=== PATIENT | male | born 1965 | race Caucasian/White ===

== ENCOUNTER 2016-09-16 00:37 | Inpatient (IN) | payer OTHER ==
[~2016-09-16] VITALS: Ht 167.6 cm; Wt 60.5 kg
[~2016-09-16 00:37] MED LIST: AMLO-218 PO; AMOX250C PO; CLAR250T PO; OMEP20CA16 PO; ZOF8 PO
[2016-09-16] MEDS ORDERED: ONDANSETRON 4 MG INJ IV STA ×2 (01:23→04:49)
[2016-09-16] MEDS ORDERED: morphine 2 MG INJ IV STA (01:23)
[2016-09-16] MEDS ORDERED: NITROGLYCERIN 2% 1 GM OINT PKT TD STA (01:23)
[2016-09-16 01:43] LABS: ADD SCAN DIFF NO
[2016-09-16 01:46] LABS: BASOPHILS % 0.2 % (0.0-2.0); EOSINOPHILS # 0.3 10^3/ul (0.0-0.5); EOSINOPHILS % 1.6 % (0.0-7.0); HEMATOCRIT 22.1 % (42.0-52.0); HEMOGLOBIN 7.1 g/dl (14.0-18.0); LYMPHOCYTES % 12.3 % (15.0-51.0); MEAN CORPUSCULAR HEMOGLOBIN 29.7 pg (29.0-33.0); MEAN CORPUSCULAR HGB CONC 32.1 g/dl (32.0-37.0); MEAN CORPUSCULAR VOLUME 92.5 fl (82.0-101.0); MEAN PLATELET VOLUME 10.2 fl (7.4-10.4); MONOCYTE # 0.8 10^3/ul (0.3-0.9); MONOCYTES % 4.7 % (0.0-11.0); NEUTROPHIL # 12.9 10^3/ul (1.6-7.5); NEUTROPHILS % 80.5 % (39.0-77.0); PLATELET COUNT 340 10^3/UL (140-415); RED BLOOD COUNT 2.39 10^6/ul (4.70-6.10); RED CELL DISTRIBUTION WIDTH 14.9 % (11.5-14.5)
[2016-09-16 01:55] LABS: ALBUMIN 3.6 g/dl (3.3-4.9); POTASSIUM 4.5 mmol/L (3.5-5.1)
[2016-09-16 01:57] LABS: CREATININE 13.73 mg/dl (0.61-1.24)
[2016-09-16 01:58] LABS: TOTAL PROTEIN 7.2 g/dl (6.1-8.1)
[2016-09-16 01:59] LABS: CALCIUM 6.1 mg/dl (8.4-10.2)
[2016-09-16 02:10] LABS: TROPONIN-I 0.068 ng/ml (0.00-0.12)
--- NOTE | 2016-09-16 02:44 | RADRPT ---
PROCEDURE: Portable chest x-ray. CLINICAL INDICATION: Chest pain. TECHNIQUE: Portable AP view of the chest. COMPARISON: 01/28/2015. FINDINGS: There are hazy bilateral perihilar opacities with Shadi B lines, consistent with pulmonary edema. Minimal atelectatic changes are noted at both lung bases. The cardiac silhouette is magnified. No pleural effusion is seen. There is no pneumothorax. IMPRESSION: 1. Pulmonary edema. RPTAT: HTAR .Donaldo Prado MD, Date Time Electronically viewed and signed by .Donaldo Prado MD, on 09/16/2016 02:44 .R/
[2016-09-16 03:13] LABS: INR 1.01; PROTIME 13.3 Sec (12.2-14.2)
[2016-09-16 03:56] LABS: PARTIAL THROMBOPLASTIN TIME 38.3 Sec (25.0-35.0)
[2016-09-16] MEDS ORDERED: hydrALAzine 20 MG INJ IV ONE (05:00)
[2016-09-16] MEDS ORDERED: HYDROCODONE/HOMATROPINE 5ML CUP PO ONE (05:30)
[2016-09-16] MEDS ORDERED: ONDANSETRON 4 MG INJ IV PRN (09:00)
[2016-09-16] MEDS ORDERED: NACL 0.9% 3 ML SYG IV SCH (09:00)
[2016-09-16] MEDS ORDERED: FUROSEMIDE 40 MG INJ IV SCH (09:00)
[2016-09-16] MEDS ORDERED: DOCUSATE SODIUM 100 MG CAP PO PRN (09:00)
[2016-09-16 13:07] VITALS: TEMP 99.2
[2016-09-16 14:54] VITALS: Ht 167.6 cm; Wt 60.5 kg
[2016-09-16 15:05] VITALS: BP 175/75; RESP 22
[2016-09-16 16:00] VITALS: PULSE 98
--- NOTE | 2016-09-16 16:31 | QN ---
Documentation Comment [id number] LUCAS WAHL MD Sep 16, 2016 16:31
[2016-09-16 17:37] LABS: HAAIG REFLEX REFLEX FILED
--- NOTE | 2016-09-16 18:15 | RADRPT ---
PROCEDURE: Renal US. CLINICAL INDICATION: Renal dysfunction. TECHNIQUE: Multiple sonographic images of the kidneys and urinary bladder were obtained. The imag es were reviewed on a PACS workstation. COMPARISON: No prior studies are available for comparison. FINDINGS: The right kidney measures 8.3 x 4.3 x 3.8 cm. The left kidney measures 8.2 x 4.4 x 4.1 cm. There is no solid renal mass. There are small benign bilateral renal cysts measuring 0.7 cm on the right and 0.7 cm on the left. There is no hydronephrosis. There is no renal calculus. Both kidneys are hyperechoic consistent with medical renal disease. The perirenal regions are normal with no fluid collection or mass. The urinary bladder is unremarkable. IMPRESSION: 1. Small benign bilateral renal cysts. 2. Bilateral hyperechoic kidneys consistent with medical renal disease. RPTAT: QQ .Dexter Leiva MD, MD Date Time Electronically viewed and signed by .Dexter Leiva MD, on 09/16/2016 18:15 .R/
[2016-09-16] MEDS: FUROSEMIDE 40 MG INJ IV SCH (18:50)
[2016-09-16 19:10] LABS: HEPATITIS B CORE ANTIBODY NEGATIVE (NEGATIVE)
[2016-09-16 19:20] LABS: ADD UMIC YES; URINE BILIRUBIN (Dip) NEGATIVE (NEGATIVE); URINE BLOOD (Dip) 2+ (NEGATIVE); URINE COLOR LT. YELLOW (YELLOW); URINE GLUCOSE (Dip) NEGATIVE (NEGATIVE); URINE KETONES (Dip) NEGATIVE (NEGATIVE); URINE LEUKOCYTE ESTERASE (Dip) NEGATIVE (NEGATIVE); URINE NITRITE (Dip) NEGATIVE (NEGATIVE); URINE TOTAL PROTEIN (Dip) 2+ (NEGATIVE); URINE UROBILINOGEN (Dip) 0.2 E.U./dL (0.1-1.0)
[2016-09-16 19:31] LABS: BACTERIA,URINE FEW
[2016-09-16 19:48] LABS: PROTEIN/CREAT RATIO 3.89 RATIO
[2016-09-16 20:00] VITALS: BP 175/83; RESP 19
[2016-09-16 20:01] VITALS: PULSE 100
[2016-09-16] MEDS: hydrALAzine 20 MG INJ IV PRN (21:37)
[2016-09-17] VITALS (12 sets, daily range): BP systolic 148–170; BP diastolic 75–90; PULSE 90–110; RESP 18–20
--- NOTE | 2016-09-17 02:07 | RADRPT ---
PROCEDURE: US upper extremity Venous. CLINICAL INDICATION: Placement of central venous line. TECHNIQUE: Multiple sonographic images of the bilateral upper extremity venous system was obtained utilizing grayscale, color-flow, compressive sonography and doppler imaging with augmentation. Ronaldo dy is limited per request of referring physician. COMPARISON: None. FINDINGS: Bilateral upper extremity ultrasound examination is limited to the internal jugular veins and subcla vian veins. There is no evident deep venous thrombosis. IMPRESSION: No sonographic evidence for venous thrombosis. RPTAT: UU Physician Raphael Date Time Electronically viewed and signed by Physician Raphael on 09/17/2016 02:06 RS/
[2016-09-17] MEDS: FUROSEMIDE 40 MG INJ IV SCH ×2 (05:50→17:18)
[2016-09-17] MEDS: PANTOPRAZOLE 40 MG INJ IV SCH (05:51)
[2016-09-17 06:38] LABS: ADD SCAN DIFF NO
[2016-09-17 06:56] LABS: ABNORMAL IP MESSAGE 1; BASOPHILS % 0.1 % (0.0-2.0); EOSINOPHILS # 0.2 10^3/ul (0.0-0.5); EOSINOPHILS % 1.1 % (0.0-7.0); HEMATOCRIT 19.2 % (42.0-52.0); LYMPHOCYTES # 1.5 10^3/ul (0.8-2.9); LYMPHOCYTES % 10.6 % (15.0-51.0); MEAN CORPUSCULAR HEMOGLOBIN 29.6 pg (29.0-33.0); MEAN CORPUSCULAR HGB CONC 31.8 g/dl (32.0-37.0); MEAN CORPUSCULAR VOLUME 93.2 fl (82.0-101.0); MEAN PLATELET VOLUME 10.4 fl (7.4-10.4); MONOCYTE # 0.9 10^3/ul (0.3-0.9); MONOCYTES % 6.5 % (0.0-11.0); NEUTROPHIL # 11.1 10^3/ul (1.6-7.5); NEUTROPHILS % 80.8 % (39.0-77.0); PLATELET COUNT 259 10^3/UL (140-415); RED BLOOD COUNT 2.06 10^6/ul (4.70-6.10); RED CELL DISTRIBUTION WIDTH 14.6 % (11.5-14.5); WHITE BLOOD COUNT 13.7 10^3/ul (4.8-10.8)
[2016-09-17 07:07] LABS: IRON 20 ug/dl (35-150)
[2016-09-17 07:11] LABS: POTASSIUM 4.6 mmol/L (3.5-5.1)
[2016-09-17 07:13] LABS: ALBUMIN/GLOBULIN RATIO 0.93; CREATININE 13.62 mg/dl (0.61-1.24); PHOSPHORUS 7.4 mg/dl (2.5-4.9); TOTAL PROTEIN 6.2 g/dl (6.1-8.1)
[2016-09-17 07:14] LABS: CALCIUM 6.3 mg/dl (8.4-10.2)
[2016-09-17 07:16] LABS: TOTAL IRON BINDING CAPACITY 220 ug/dl (241-421)
--- NOTE | 2016-09-17 07:58 | HP ---
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 The patient presented with short of breath and weakness. Blood pressure 135/75. The patient's WBC 16, hematocrit 22.1, platelet count of 314. Sodium 143, potassium 4.5, CO2 of 15, BUN 18, creatinine 13.73. BNP 54,500. The patient _. PAST MEDICAL HISTORY: Hypertension, CKD V, anemia. The patient's other history includes the patient has a history of hypertensive urgency. The patient had metabolic acidosis. The patient has neuropathy. ALLERGY HISTORY: NEGATIVE. FAMILY HISTORY: Negative. SOCIAL HISTORY: He denies at this point. Social drinking. MEDICATIONS AT HOME: The patient does not know the medicines. REVIEW OF SYSTEMS: HEENT: Unremarkable. RESPIRATORY: Shortness of breath, cough. CARDIOVASCULAR: No chest pain, palpitations. ABDOMEN: Dyspepsia. EXTREMITIES: Swelling positive. CENTRAL NERVOUS SYSTEM: Unremarkable. PHYSICAL EXAMINATION: GENERAL: The patient is a pale-looking male, awake, alert. VITAL SIGNS: Pulse 101, blood pressure 159/80. HEAD: Atraumatic, normocephalic. Pupils equal, reactive to light. NECK: Supple. No JVD. LUNGS: Clear with basilar rales. CARDIOVASCULAR: S1, S2 normal. ABDOMEN: Soft, nontender. Bowel sounds present. No palpable mass. EXTREMITIES: No cyanosis, clubbing, or edema. CENTRAL NERVOUS SYSTEM: The patient is awake, alert, no focal deficit. LABORATORY DATA: As mentioned above. IMPRESSION: 1. Chronic kidney disease V, nearing dialysis. 2. Metabolic acidosis. 3. Leukocytosis. 4. Hypertension. 5. Uremia. 6. Pulmonary edema. PLAN: This patient to have renal diet. The patient will have ultrasound of the kidneys, if not done. Hemodialysis would benefit him. Diuretic. Continue home medication. Orders were done. Hepatitis panel. As well as DICTATION ENDS HERE Dictated By: LUCAS LEON/NTS Conf#: [id number] DID#: [id number] MTDD
[2016-09-17] MEDS: hydrALAzine 20 MG INJ IV PRN (10:06)
--- NOTE | 2016-09-17 13:08 | CONS ---
DATE OF ADMISSION: 09/16/2016 DATE OF CONSULTATION: 09/17/2016 REFERRING PHYSICIAN: Jossue Wahl MD REASON FOR EVALUATION: Tachycardia, shortness of breath. HISTORY OF PRESENT ILLNESS: Mr. Medina is a 50-year-old gentleman with end-stage renal disease on he modialysis, history of hypertension, anemia, history of heart failure in the past who comes [facility] for evaluation of tachycardia and shortness of breath. This was in the setting of sever e anemia. I have been asked to see the patient in consultation for further evaluation. When the salvador montgomery presented to the hospital, his hemoglobin was 7.1. His last hemoglobin here was 13.6 from 2014, today the ____ was 6.1, which could explain his symptoms of shortness of breath as well as mil d tachycardia. Patient's tachycardia appears to be sinus tachycardia in nature. He appears to have some nonspecific ST-T changes suggestive of ischemia during his tachycardia and as such, I think it would be reasonable for the patient to have a stress test for stratification, which we can facilita te for tomorrow. For now, blood transfusion is planned. PAST MEDICAL HISTORY: 1. Hypertension. 2. Dyslipidemia. 3. Possible coronary artery disease. 4. End-stage renal disease on hemodialysis as acute anemia. ALLERGIES: NO KNOWN DRUG ALLERGIES. SOCIAL HISTORY: The patient has a history of tobacco. He does not smoke anymore, does not drink, d oes not use any drugs. FAMILY HISTORY: Negative for sudden cardiac or premature coronary artery disease. MEDICATIONS: The patient is on: 1. Protonix. 2. Coreg 3.125 mg. 3. Lasix intravenously b.i.d. 4. Hydralazine. 5. Ondansetron. 6. Docusate. REVIEW OF SYSTEMS: CONSTITUTIONAL: No fevers, no chills, some shortness of breath is noted. HEENT: No changes in vision or hearing. CARDIAC: No chest pain reported. RESPIRATORY: No shortness of breath. GASTROINTESTINAL: No nausea, vomiting, diarrhea, constipation. GENITOURINARY: The patient is on hemodialysis. NEUROLOGIC: ____. HEMATOLOGIC: Anemia. PSYCHIATRIC: Possible history of psychiatric illness. PHYSICAL EXAMINATION: VITAL SIGNS: Temperature is 98.2, heart rate is 78, blood pressure ____. GENERAL: He is a thin gentleman in no acute distress, alert and oriented x3, aware of his condition . HEAD: Normocephalic, atraumatic. Eyes anicteric. NECK: Supple. JVD 6-7 cm. No lymphadenopathy. HEART: Regular with soft I/ ____ chest, ____respiration. PMI is ____ LUNGS: Coarse at bases. ABDOMEN: Distended, bowel sounds are present. There is no hepatosplenomegaly. GENITOURINARY: Grossly intact. EXTREMITIES: Show no clubbing, cyanosis, or edema. LABORATORY DATA: White blood cell count 7.7, hemoglobin 6.1, platelets 259. INR is 1.0. Sodium 13 6, potassium 4.8. His BUN is ____, creatinine of 13.6, troponin is negative at 0.68. ASSESSMENT AND PLAN: Tachycardia. Patient ____ has a sinus tachycardia ____ has some ST-T changes, possibly suggestive o f ischemia. Once the blood transfusion were placed, I would recommend this patient to risk stratify with a stress test, will facilitate one for tomorrow. Shortness of breath also in the setting of a nemia, better now. A 2D echo is pending. 1. End-stage renal disease. The patient is on hemodialysis. Continued to dialyze with Dr. Wahl a s indicated. 2. Anemia, etiology is still unclear. Hemoglobin is very low. Blood transfusion is warranted. 3. ____. The patient has history of heart failure. 2D echo pending. We will follow up with a 3-D echo if results are available. I would like to thank Dr. Wahl for referring this patient for my evaluation. Dictated By: CECELIA MONTESINOS MD ML/NTS Conf#: [id number] DID#: [id number] CC: JOSSUE WAHL MD;*EndCC*
--- NOTE | 2016-09-17 22:43 | PN ---
Date/Time of Note Date/Time of Note DATE: 09/17/16 TIME: 22:43 Assessment/Plan VTE Prophylaxis VTE Prophylaxis Intervention: other Lines/Catheters [facility] Saline Lock Urinary Cath still in place: No Assessment/Plan Chief Complaint/Hosp Course IMPRESSION: 1. Chronic kidney disease V, nearing dialysis. 2. Metabolic acidosis. 3. Leukocytosis. 4. Hypertension. 5. Uremia. 6. Pulmonary edema. plan prbc hd Problems: Subjective 24 Hr Interval Summary Subjective hx not possible: other (refusing hd) Exam/Review of Systems Vital Signs Vitals Vital Signs Date Time Temp Pulse Resp B/P Pulse Ox O2 Delivery O2 Flow Rate FiO2 09/17/16 20:11 98.3 94 20 154/78 96 09/16/16 20:00 Nasal Cannula 2.0 Intake and Output 09/16/16 09/16/16 09/17/16 15:00 23:00 07:00 Intake Total 400 ml 2400 ml Output Total 600 ml Balance -200 ml 2400 ml Exam Neck: supple Respiratory: clear to auscultation Cardiovascular: regular rate and rhythm Gastrointestinal: soft Musculoskeletal: nl extremities to inspection Extremities: normal pulses Results Result Diagram: 09/17/16 0605 09/17/16 0605 Results 24 hrs Laboratory Tests Test 09/17/16 06:05 Alanine Aminotransferase (ALT/SGPT) 27 Albumin 3.0 L Albumin/Globulin Ratio 0.93 Alkaline Phosphatase 90 Anion Gap 21 H Aspartate Amino Transf (AST/SGOT) 33 Basophils # 0.0 Basophils % 0.1 Blood Urea Nitrogen 101 H Calcium Level 6.3 L Carbon Dioxide Level 16 L Chloride Level 104 Creatinine 13.62 H Direct Bilirubin 0.00 Eosinophils # 0.2 Eosinophils % 1.1 Globulin 3.20 Glucose Level 93 Hematocrit 19.2 L Hemoglobin 6.1 *L Indirect Bilirubin 0.0 Iron Level 20 L Lymphocytes # 1.5 Lymphocytes % 10.6 L Mean Corpuscular Hemoglobin 29.6 Mean Corpuscular Hemoglobin Concent 31.8 L Mean Corpuscular Volume 93.2 Mean Platelet Volume 10.4 Monocytes # 0.9 Monocytes % 6.5 Neutrophils # 11.1 H Neutrophils % 80.8 H Nucleated Red Blood Cells # 0.0 Nucleated Red Blood Cells % 0.0 Parathyroid Hormone (Intact) Percent Iron Saturation 9 L Phosphorus Level 7.4 H Platelet Count 259 # Potassium Level 4.6 Red Blood Count 2.06 L Red Cell Distribution Width 14.6 H Sodium Level 136 Total Bilirubin 0.0 L Total Iron Binding Capacity 220 L Total Protein 6.2 # White Blood Count 13.7 H Medications Medications Current Medications Ondansetron HCl (Zofran Inj) 4 mg Q6H PRN IV NAUSEA AND/OR VOMITING; Start at 09:00 Docusate Sodium (Colace) 100 mg Q12H PRN PO CONSTIPATION; Start 09/16/16 at 09: 00 Pantoprazole (Protonix Iv) 40 mg DAILY@06 IV Last administered on 09/17/16 05: 51; Admin Dose 40 MG; Start 09/17/16 at 06:00 Carvedilol (Coreg) 3.125 mg BID PO Last administered on 09/17/16 20:22; Admin Dose 3.125 MG; Start 09/16/16 at 21:00 Hydralazine HCl (Apresoline) 10 mg Q6H PRN IV sbp >170 Last administered on 10:06; Admin Dose 10 MG; Start 09/16/16 at 17:00 LUCAS WAHL MD Sep 17, 2016 22:43
[2016-09-18] VITALS (15 sets, daily range): BP systolic 129–175; BP diastolic 71–96; PULSE 80–102; RESP 16–20
[2016-09-18] MEDS ORDERED: GUAIFENESIN/CODEINE 5ML CUP PO PRN (05:00)
[2016-09-18] MEDS: FUROSEMIDE 40 MG INJ IV SCH ×2 (05:11→17:15)
[2016-09-18] MEDS: PANTOPRAZOLE 40 MG INJ IV SCH (05:11)
[2016-09-18 07:26] LABS: ADD SCAN DIFF NO
[2016-09-18 07:31] LABS: BASOPHILS % 0.2 % (0.0-2.0); EOSINOPHILS # 0.2 10^3/ul (0.0-0.5); EOSINOPHILS % 1.9 % (0.0-7.0); HEMATOCRIT 23.2 % (42.0-52.0); HEMOGLOBIN 7.7 g/dl (14.0-18.0); LYMPHOCYTES # 1.3 10^3/ul (0.8-2.9); LYMPHOCYTES % 10.2 % (15.0-51.0); MEAN CORPUSCULAR HGB CONC 33.2 g/dl (32.0-37.0); MEAN CORPUSCULAR VOLUME 90.3 fl (82.0-101.0); MEAN PLATELET VOLUME 10.1 fl (7.4-10.4); MONOCYTE # 1.1 10^3/ul (0.3-0.9); MONOCYTES % 8.9 % (0.0-11.0); NEUTROPHIL # 9.7 10^3/ul (1.6-7.5); NEUTROPHILS % 78.2 % (39.0-77.0); PLATELET COUNT 294 10^3/UL (140-415); RED BLOOD COUNT 2.57 10^6/ul (4.70-6.10); RED CELL DISTRIBUTION WIDTH 14.6 % (11.5-14.5); WHITE BLOOD COUNT 12.3 10^3/ul (4.8-10.8)
[2016-09-18 07:58] LABS: POTASSIUM 4.4 mmol/L (3.5-5.1)
[2016-09-18 08:01] LABS: CALCIUM 6.5 mg/dl (8.4-10.2)
[2016-09-18 08:12] LABS: CREATININE 14.69 mg/dl (0.61-1.24)
--- NOTE | 2016-09-18 10:19 | CONS ---
Date/Time of Note Date/Time of Note DATE: 09/18/16 TIME: 10:13 Assessment/Plan Assessment/Plan Chief Complaint/Hosp Course IMp: 1.CHF-? systolic versus diastolic acute 2.HTN 3.CKD stage IV-not on HD 4.Chest pain 5.SOB Rec: -tele -Serial ecg's -Complete ALEXA -Continue BB -Start hydralazine to improve Problems: Consultation Date/Type/Reason Admit Date/Time Sep 16, 2016 at 03:23 Initial Consult Date 09/17/2016 Type of Consultation: Cardiology Reason for Consultation CHF/sob Referring Provider: LUCAS WAHL Exam/Review of Systems Vital Signs Vitals Vital Signs Date Time Temp Pulse Resp B/P Pulse Ox O2 Delivery O2 Flow Rate FiO2 09/18/16 08:05 102 09/18/16 07:20 98.0 16 166/86 98 09/16/16 20:00 Nasal Cannula 2.0 Intake and Output 09/17/16 09/17/16 09/18/16 15:00 23:00 07:00 Intake Total 750 ml 800 ml Output Total 1150 ml Balance 750 ml -350 ml Exam Review of Systems: CONSTITUTIONAL: No fevers, chills. PULMONARY: mild sob CARDIOVASCULAR: Intermittent chest pain GASTROINTESTINAL: No nausea/vomiting. GENITOURINARY: No hematuria/dysuria. MUSCULOSKELETAL: No myagias/arthalgias. PSYCHIATRIC: The patient denies depression. NEUROLOGIC: No weakness Constitutional: alert, oriented Psych: no complaints Head: normocephalic ENMT: mucosa pink and moist Neck: jvd (9 cm water), supple Respiratory: diminished breath sounds Cardiovascular: regular rate and rhythm Gastrointestinal: non-tender, soft Musculoskeletal: muscle tone (normal) Extremities: edema (none) Neurological: other (No focal deficits) Results Result Diagram: 09/18/16 0646 09/18/16 0646 Results 24 hrs Laboratory Tests Test 09/18/16 06:46 Anion Gap 22 H Basophils # 0.0 Basophils % 0.2 Blood Urea Nitrogen 106 H Calcium Level 6.5 L Carbon Dioxide Level 17 L Chloride Level 102 Creatinine 14.69 H Eosinophils # 0.2 Eosinophils % 1.9 Glucose Level 110 Hematocrit 23.2 #L Hemoglobin 7.7 #L Lymphocytes # 1.3 Lymphocytes % 10.2 L Mean Corpuscular Hemoglobin 30.0 Mean Corpuscular Hemoglobin Concent 33.2 Mean Corpuscular Volume 90.3 Mean Platelet Volume 10.1 Monocytes # 1.1 H Monocytes % 8.9 Neutrophils # 9.7 H Neutrophils % 78.2 H Nucleated Red Blood Cells # 0.0 Nucleated Red Blood Cells % 0.0 Platelet Count 294 Potassium Level 4.4 Red Blood Count 2.57 #L Red Cell Distribution Width 14.6 H Sodium Level 137 White Blood Count 12.3 H Medications Medications Current Medications Ondansetron HCl (Zofran Inj) 4 mg Q6H PRN IV NAUSEA AND/OR VOMITING; Start at 09:00 Docusate Sodium (Colace) 100 mg Q12H PRN PO CONSTIPATION; Start 09/16/16 at 09: 00 Pantoprazole (Protonix Iv) 40 mg DAILY@06 IV Last administered on 09/18/16 05: 11; Admin Dose 40 MG; Start 09/17/16 at 06:00 Carvedilol (Coreg) 3.125 mg BID PO Last administered on 09/18/16 09:19; Admin Dose 3.125 MG; Start 09/16/16 at 21:00 Hydralazine HCl (Apresoline) 10 mg Q6H PRN IV sbp >170 Last administered on 10:06; Admin Dose 10 MG; Start 09/16/16 at 17:00 Guaifenesin/ Codeine Phosphate (Robitussin Ac Liquid Cup) 5 ml Q8H PRN PO cough Last administered on 09/18/16 05:10; Admin Dose 5 ML; Start 09/18/16 at 05:00 MATEO HODGSON Sep 18, 2016 10:19
[2016-09-18] MEDS: hydrALAzine 20 MG INJ IV PRN (12:03)
[2016-09-18 12:55] LABS: CK-MB 4.53 ng/ml (0.0-2.4)
[2016-09-18] MEDS ORDERED: morphine 2 MG INJ IV PRN (13:00)
[2016-09-18 13:03] LABS: TROPONIN-I 2.48 ng/ml (0.00-0.12)
--- NOTE | 2016-09-18 19:55 | CONS ---
DATE OF ADMISSION: 09/16/2016 DATE OF CONSULTATION: REFERRING PHYSICIAN: Dr. Jossue Wahl. REASON FOR CONSULTATION: Heartburn, retrosternal chest pain and epigastric discomfort. HISTORY OF PRESENT ILLNESS: A 50-year-old male with chronic kidney disease, presented to the ER com plaining of shortness of breath and weakness. The patient also complains of retrosternal chest disc omfort, heartburn and also epigastric pain. No nausea, no vomiting, no GI bleeding. 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 PAST MEDICAL HISTORY: Hypertension, chronic kidney disease, anemia, neuropathy. ALLERGIES: NEGATIVE. FAMILY HISTORY: Negative. SOCIAL HISTORY: Negative. MEDICATIONS: Reviewed. PHYSICAL EXAMINATION: GENERAL: Alert, awake, not in distress. VITAL SIGNS: Stable. HEENT: Unremarkable. NECK: Supple, no thyromegaly, no lymphadenopathy. CARDIOVASCULAR: No murmur, gallop or click. LUNGS: Diminished air entry. ABDOMEN: Benign. EXTREMITIES: No edema. CENTRAL NERVOUS SYSTEM: Grossly within normal limits. LABORATORY DATA: The patient's hematocrit is 23. Normochromic, normocytic. Creatinine is 14, BUN is 106. Troponin was 2.485. BNP was 54,500. His chest x-ray showed pulmonary edema. The patient' s DVT study was negative. Renal ultrasound showed bilateral renal cysts, hyperechoic kidney. IMPRESSION: 1. Renal failure. 2. Congestive heart failure. 3. Pulmonary hypertension. 4. Anemia. 5. Retrosternal discomfort. 6. Epigastric pain. 7. Gastroesophageal reflux disease. PLAN: To start the patient on a PPI. The patient definitely needs dialysis, which he keeps declini ng it. We will get a CAT scan of the abdomen. We will do EGD only once his condition is stable. I n the interim, we will start him on a PPI. Dictated By: JUAN PARRA MD PJ/NTS Conf#: [id number] DID#: [id number] CC: JOSSUE WAHL MD; JUAN PARRA MD;*EndCC*
[2016-09-18 20:02] LABS: TROPONIN-I 2.12 ng/ml (0.00-0.12)
[2016-09-18 20:03] LABS: CK-MB 3.85 ng/ml (0.0-2.4)
--- NOTE | 2016-09-18 20:43 | RADRPT ---
Echocardiogram Report Patient Name: JULIANNE ALAS Gender: Male Date: 1965 Study Date: 17-Sep-2016 Whitewasher: Beckie Florence SANJUANA Location: 503 Ref. Physician: LUCAS WAHL Quality: Good Procedures: Transthoracic echocardiogram with complete 2D, M-Mode, and doppler examination. Indications: Shortness of breath. 2D/M Mode Doppler Measurement Value Normal Ranges Measurement Value Normal Ranges LVIDd 2D 5.4 3.5 - 5.6 cm AV Peak Levi 1.5 m/sec LVIDs 2D 3.8 2.1 - 4.1 cm AV Peak PG 8.8 mmHg LVPWd 2D 1.2 0.6 - 1.1 cm LVOT Peak Levi 1.0 m/sec IVSd 2D 1.3 0.6 - 1.1 cm LVOT Peak PG 4.4 mmHg AoR Diam 2D 2.4 2.0 - 3.7 cm MV E Peak Levi 0.8 m/sec EDV 2D 142.4 cm3 MV A Peak Levi 1.0 m/sec ESV 2D 54.0 cm3 MV E/A 0.8 LA Dimen 2D 3.8 2.3 - 4.0 cm MV Decel Time 158 msec MV Decel [place] 5 MV E/A 0.8 TR Peak Levi 2.4 m/sec TR Peak PG 23.1 mmHg RVSP 26.0 mmHg Findings Left Ventricle: Lower limits of normal systolic function. Normal left ventricular cavity size. Mild concentric left ventricular hypertrophy. Ejection fraction is visually estimated at 50 %. Tissue Doppler/Mitral Doppler indices are consistent with impaired relaxation (Stage I diastolic dysfunction). These segments of the LV are hypokinetic mid septum segment. Right Ventricle: Normal right ventricular size. Normal right ventricular systolic function. Left Atrium: The left atrium is normal in size. Right Atrium: The right atrium is normal in size. Mitral Valve: Mitral valve leaflets appear mildly thickened. Moderate mitral valve regurgitation. Aortic Valve: Normal appearance of the aortic valve. No significant aortic stenosis or insufficiency. Tricuspid Valve: Estimated peak PA systolic pressure 26 mmHg. There is mild tricuspid regurgitation. Pulmonic Valve: Normal pulmonic valve appearance. Pericardium: Normal pericardium with no significant pericardial effusion. Aorta: Normal aortic root. IVC: Normal size and normal respiratory collapse consistent with normal right atrial pressure. Conclusions 1.Lower limits of normal systolic function. Normal left ventricular cavity size. Mild concentric left ventricular hypertrophy. Ejection fraction is visually estimated at 50 %. Tissue Doppler/Mitral Doppler indices are consistent with impaired relaxation (Stage I diastolic dysfunction). These segments of the LV are hypokinetic mid septum segment. 2.Mitral valve leaflets appear mildly thickened. Moderate mitral valve regurgitation. 3.Estimated peak PA systolic pressure 26 mmHg. There is mild tricuspid regurgitation. Electronically Signed By: Deandre Mahoney 18-Sep-2016 20:42:33 -0700 Patient Name: JULIANNE ALAS Study Date: 17-Sep-2016 [id number]
[2016-09-18] MEDS: NITROGLYCERIN (SL) 0.4 MG TAB SL PRN ×2 (21:32→21:54)
--- NOTE | 2016-09-18 23:40 | PN ---
Date/Time of Note Date/Time of Note DATE: 09/18/16 TIME: 23:39 Assessment/Plan VTE Prophylaxis VTE Prophylaxis Intervention: other Lines/Catheters IV [facility] Saline Lock Urinary Cath still in place: No Assessment/Plan Chief Complaint/Hosp Course IMPRESSION: 1. Chronic kidney disease V, nearing dialysis. 2. Metabolic acidosis. 3. Leukocytosis. 4. Hypertension. 5. Uremia. 6. Pulmonary edema. plan hd when pt agrees Problems: Subjective 24 Hr Interval Summary Respiratory: shortness of breath (+) Gastrointestinal: no complaints Genitourinary: No bleeding Exam/Review of Systems Vital Signs Vitals Vital Signs Date Time Temp Pulse Resp B/P Pulse Ox O2 Delivery O2 Flow Rate FiO2 09/18/16 20:00 86 09/18/16 20:00 98.3 19 170/95 98 09/16/16 20:00 Nasal Cannula 2.0 Intake and Output 09/17/16 09/17/16 09/18/16 15:00 23:00 07:00 Intake Total 750 ml 800 ml Output Total 1150 ml Balance 750 ml -350 ml Exam Respiratory: diminished breath sounds Cardiovascular: regular rate and rhythm Gastrointestinal: bowel sounds (+), soft Results Result Diagram: 09/18/16 0646 09/18/16 0646 Results 24 hrs Laboratory Tests Test 09/18/16 06:46 09/18/16 12:20 09/18/16 17:50 White Blood Count 12.3 H Red Blood Count 2.57 #L Hemoglobin 7.7 #L Hematocrit 23.2 #L Mean Corpuscular Volume 90.3 Mean Corpuscular Hemoglobin 30.0 Mean Corpuscular Hemoglobin Concent 33.2 Red Cell Distribution Width 14.6 H Platelet Count 294 Mean Platelet Volume 10.1 Neutrophils % 78.2 H Lymphocytes % 10.2 L Monocytes % 8.9 Eosinophils % 1.9 Basophils % 0.2 Nucleated Red Blood Cells % 0.0 Neutrophils # 9.7 H Lymphocytes # 1.3 Monocytes # 1.1 H Eosinophils # 0.2 Basophils # 0.0 Nucleated Red Blood Cells # 0.0 Sodium Level 137 Potassium Level 4.4 Chloride Level 102 Carbon Dioxide Level 17 L Anion Gap 22 H Blood Urea Nitrogen 106 H Creatinine 14.69 H Glucose Level 110 Calcium Level 6.5 L Creatine Kinase 685 H 607 H Creatine Kinase Index 0.7 0.6 Creatinine Kinase MB (Mass) 4.53 H 3.85 H Troponin I 2.480 *H 2.120 *H Medications Medications Current Medications Ondansetron HCl (Zofran Inj) 4 mg Q6H PRN IV NAUSEA AND/OR VOMITING; Start at 09:00 Docusate Sodium (Colace) 100 mg Q12H PRN PO CONSTIPATION; Start 09/16/16 at 09: 00 Pantoprazole (Protonix Iv) 40 mg DAILY@06 IV Last administered on 09/18/16 05: 11; Admin Dose 40 MG; Start 09/17/16 at 06:00 Carvedilol (Coreg) 3.125 mg BID PO Last administered on 09/18/16 21:11; Admin Dose 3.125 MG; Start 09/16/16 at 21:00 Hydralazine HCl (Apresoline) 10 mg Q6H PRN IV sbp >170 Last administered on 12:03; Admin Dose 10 MG; Start 09/16/16 at 17:00 Guaifenesin/ Codeine Phosphate (Robitussin Ac Liquid Cup) 5 ml Q8H PRN PO cough Last administered on 09/18/16 05:10; Admin Dose 5 ML; Start 09/18/16 at 05:00 Hydralazine HCl (Apresoline) 25 mg Q8 PO Last administered on 09/18/16 21:12; Admin Dose 25 MG; Start 09/18/16 at 14:00 Nitroglycerin (Nitroglycerin (Sl Tab) 0.4 Mg) 1 tab Q5M PRN SL ANGINA Last administered on 09/18/16 21:54; Admin Dose 1 TAB; Start 09/18/16 at 10:30 Morphine Sulfate (morphine) 2 mg Q4H PRN IV PAIN 5-10 Last administered on 09/18 12:47; Admin Dose 2 MG; Start 09/18/16 at 13:00 LUCAS WAHL MD Sep 18, 2016 23:40
[2016-09-19] VITALS (21 sets, daily range): BP systolic 120–177; BP diastolic 70–99; PULSE 84–95; RESP 18–21
[2016-09-19 01:16] LABS: CK-MB 2.96 ng/ml (0.0-2.4); TROPONIN-I 2.01 ng/ml (0.00-0.12)
[2016-09-19] MEDS: PANTOPRAZOLE 40 MG INJ IV SCH (06:18)
[2016-09-19] MEDS: FUROSEMIDE 40 MG INJ IV SCH ×2 (06:19→17:44)
[2016-09-19 07:33] LABS: ADD SCAN DIFF NO
[2016-09-19 07:45] LABS: BASOPHILS % 0.1 % (0.0-2.0); EOSINOPHILS # 0.2 10^3/ul (0.0-0.5); EOSINOPHILS % 1.7 % (0.0-7.0); HEMATOCRIT 23.3 % (42.0-52.0); HEMOGLOBIN 7.7 g/dl (14.0-18.0); LYMPHOCYTES # 1.4 10^3/ul (0.8-2.9); LYMPHOCYTES % 13.9 % (15.0-51.0); MEAN CORPUSCULAR HEMOGLOBIN 29.8 pg (29.0-33.0); MEAN CORPUSCULAR VOLUME 90.3 fl (82.0-101.0); MEAN PLATELET VOLUME 10.5 fl (7.4-10.4); MONOCYTE # 1.2 10^3/ul (0.3-0.9); MONOCYTES % 12.1 % (0.0-11.0); NEUTROPHIL # 7.2 10^3/ul (1.6-7.5); NEUTROPHILS % 71.6 % (39.0-77.0); PLATELET COUNT 287 10^3/UL (140-415); RED BLOOD COUNT 2.58 10^6/ul (4.70-6.10); RED CELL DISTRIBUTION WIDTH 14.5 % (11.5-14.5); WHITE BLOOD COUNT 10.1 10^3/ul (4.8-10.8)
[2016-09-19 07:49] LABS: POTASSIUM 4.3 mmol/L (3.5-5.1)
[2016-09-19 07:51] LABS: ALBUMIN/GLOBULIN RATIO 0.9; TOTAL PROTEIN 6.3 g/dl (6.1-8.1)
[2016-09-19 07:52] LABS: CALCIUM 6.6 mg/dl (8.4-10.2)
[2016-09-19 08:06] LABS: CREATININE 14.66 mg/dl (0.61-1.24)
[2016-09-19] MEDS ORDERED: HEPARIN 1000 UNITS/ML 10 ML INJ ONE (08:36)
[2016-09-19] MEDS ORDERED: LIDOCAINE 1% (MDV) 20 ML INJ ONE (08:36)
[2016-09-19] MEDS ORDERED: FENTAnyl 50 MCG/ML VIAL ONE (08:47)
[2016-09-19] MEDS ORDERED: CEFAZOLIN 1 GM/50 ML (PMX) 50 ML IVPB ONE (08:47)
[2016-09-19] MEDS ORDERED: MIDAZOLAM 1 MG/ML 2 ML INJ ONE (08:48)
[2016-09-19] MEDS ORDERED: DIPHENHYDRAMINE 50 MG INJ ONE (08:48)
[2016-09-19] MEDS ORDERED: SOD CHLORIDE 0.9% 1,000 ML ONE (08:48)
--- NOTE | 2016-09-19 10:37 | RADRPT ---
Vent Rate: 85 bpm RR Interval: 0 msec MD Interval: 138 msec QRS Duration: 98 msec QT Interval: 380 msec QTC Interval: 452 msec P-R-T [place]: 49 - 65 - 0 degrees Normal sinus rhythm Left ventricular hypertrophy with repolarization abnormality Abnormal ECG Electronically Signed By: Hugo Santiago [id number]
--- NOTE | 2016-09-19 12:36 | RADRPT ---
PROCEDURE: Ultrasound guidance for placement of needle in right internal jugular vein. CLINICAL INDICATION: Venous access. TECHNIQUE: Prior to the procedure, informed consent was obtained. Risks including bleeding, infection, and pneu mothorax were explained to the patient. The patient understood and was willing to proceed. A procedu ral pause was performed. The patient's name, date of , and procedure to be performed were verif ied. The central line was inserted with all elements of maximal sterile barrier technique. All of th e following were used: head covering, facial mask, sterile gown, sterile gloves, a large sterile she et, hand hygiene, and 2% chlorhexidine for cutaneous antisepsis. The right neck and anterior/super ior chest wall was prepped and draped in usual sterile fashion. Limited sonography of the right neck was then performed. Noted is a patent right internal jugular ve in. Ultrasound images were recorded and stored in the patient's medical record. Following the local injection of Xylocaine, the right internal jugular vein was punctured under sono graphic guidance with a 20-gauge needle through which a 0.018 inch floppy tip guidewire was advanced into the superior vena cava. The patient tolerated the procedure well. The remainder of the proce dure was performed and dictated under separate cover. COMPARISON: None. FINDINGS: The ultrasound images demonstrate a patent right internal jugular vein. The subsequent images demon strate the needle entering the right internal jugular vein. IMPRESSION: 1. Ultrasound guidance for a needle placement in right internal jugular vein. RPTAT: QQ .Dexter Leiva MD, Date Time Electronically viewed and signed by .Dexter Leiva MD, on 09/19/2016 12:36 .R/
--- NOTE | 2016-09-19 12:38 | CONS ---
Date/Time of Note Date/Time of Note DATE: 09/19/16 TIME: 12:34 Assessment/Plan Assessment/Plan Chief Complaint/Hosp Course IMp: 1.CHF-Diastolic acute. Echo 08/2016 with EF 50%/mod MR 2.HTN 3.CKD stage IV-not on HD asof yet 4.Chest pain 5.SOB-secondary to CHF/volume overload 6.Nstemi-with decreasing enzymes and no chest pain currently Rec: -tele -Serial ecg's -Trend cardiac enzymes -Increase BB/hydralazine and f/u BP -Patient reportedly now agreeable to HD -Likely C to assess for sig obstructive cad once HD intitated Problems: Consultation Date/Type/Reason Admit Date/Time Sep 16, 2016 at 03:23 Initial Consult Date 09/17/2016 Type of Consultation: Cardiology Reason for Consultation Nstemi Referring Provider: LUCAS WAHL MD Exam/Review of Systems Vital Signs Vitals Vital Signs Date Time Temp Pulse Resp B/P Pulse Ox O2 Delivery O2 Flow Rate FiO2 09/19/16 12:04 84 09/19/16 10:39 98.2 19 170/98 98 09/16/16 20:00 Nasal Cannula 2.0 Intake and Output 09/18/16 09/18/16 09/19/16 15:00 23:00 07:00 Intake Total 720 ml 200 ml Output Total 500 ml Balance 220 ml 200 ml Exam Review of Systems: CONSTITUTIONAL: No fevers, chills. PULMONARY: No sob CARDIOVASCULAR: No chest pain/palpitations GASTROINTESTINAL: No nausea/vomiting. GENITOURINARY: No hematuria/dysuria. MUSCULOSKELETAL: No myagias/arthalgias. PSYCHIATRIC: The patient denies depression. NEUROLOGIC: No weakness Constitutional: alert, oriented Psych: no complaints Eyes: nl conjunctiva ENMT: mucosa pink and moist Neck: jvd (10 cm water), supple Respiratory: diminished breath sounds (at bases/B) Cardiovascular: regular rate and rhythm Gastrointestinal: soft Musculoskeletal: muscle tone (normal) Extremities: edema (trace) Neurological: other (No focal deficits) Results Result Diagram: 09/19/16 0640 09/19/16 0640 Results 24 hrs Laboratory Tests Test 09/18/16 17:50 09/19/16 00:28 09/19/16 06:40 Creatine Kinase 607 H 518 H Creatine Kinase Index 0.6 0.6 Creatinine Kinase MB (Mass) 3.85 H 2.96 H Troponin I 2.120 *H 2.010 *H White Blood Count 10.1 Red Blood Count 2.58 L Hemoglobin 7.7 L Hematocrit 23.3 L Mean Corpuscular Volume 90.3 Mean Corpuscular Hemoglobin 29.8 Mean Corpuscular Hemoglobin Concent 33.0 Red Cell Distribution Width 14.5 Platelet Count 287 Mean Platelet Volume 10.5 H Neutrophils % 71.6 Lymphocytes % 13.9 L Monocytes % 12.1 H Eosinophils % 1.7 Basophils % 0.1 Nucleated Red Blood Cells % 0.0 Neutrophils # 7.2 Lymphocytes # 1.4 Monocytes # 1.2 H Eosinophils # 0.2 Basophils # 0.0 Nucleated Red Blood Cells # 0.0 Sodium Level 133 L Potassium Level 4.3 Chloride Level 99 Carbon Dioxide Level 17 L Anion Gap 21 H Blood Urea Nitrogen 112 H Creatinine 14.66 H Glucose Level 99 Calcium Level 6.6 L Total Bilirubin 0.0 L Direct Bilirubin 0.00 Indirect Bilirubin 0.0 Aspartate Amino Transf (AST/SGOT) 19 Alanine Aminotransferase (ALT/SGPT) 20 Alkaline Phosphatase 86 Total Protein 6.3 Albumin 3.0 L Globulin 3.30 H Albumin/Globulin Ratio 0.90 Medications Medications Current Medications Ondansetron HCl (Zofran Inj) 4 mg Q6H PRN IV NAUSEA AND/OR VOMITING Last administered on 09/19/16 00:45; Admin Dose 4 MG; Start 09/16/16 at 09:00 Docusate Sodium (Colace) 100 mg Q12H PRN PO CONSTIPATION; Start 09/16/16 at 09: 00 Pantoprazole (Protonix Iv) 40 mg DAILY@06 IV Last administered on 09/19/16 06: 18; Admin Dose 40 MG; Start 09/17/16 at 06:00 Carvedilol (Coreg) 3.125 mg BID PO Last administered on 09/19/16 08:48; Admin Dose 3.125 MG; Start 09/16/16 at 21:00 Hydralazine HCl (Apresoline) 10 mg Q6H PRN IV sbp >170 Last administered on 12:03; Admin Dose 10 MG; Start 09/16/16 at 17:00 Guaifenesin/ Codeine Phosphate (Robitussin Ac Liquid Cup) 5 ml Q8H PRN PO cough Last administered on 09/18/16 05:10; Admin Dose 5 ML; Start 09/18/16 at 05:00 Hydralazine HCl (Apresoline) 25 mg Q8 PO Last administered on 09/19/16 06:18; Admin Dose 25 MG; Start 09/18/16 at 14:00 Nitroglycerin (Nitroglycerin (Sl Tab) 0.4 Mg) 1 tab Q5M PRN SL ANGINA Last administered on 09/18/16 21:54; Admin Dose 1 TAB; Start 09/18/16 at 10:30 Morphine Sulfate (morphine) 2 mg Q4H PRN IV PAIN 5-10 Last administered on 09/18 12:47; Admin Dose 2 MG; Start 09/18/16 at 13:00 MATEO HODGSON Sep 19, 2016 12:38
--- NOTE | 2016-09-19 12:45 | RADRPT ---
PROCEDURE: PLACEMENT OF RIGHT INTERNAL JUGULAR VENOUS TUNNELED DIALYSIS CATHETER. CLINICAL INDICATION: Renal failure. TECHNIQUE: Prior to the procedure, informed consent was obtained. Risks including bleeding, infection, and pneu mothorax were explained to the patient. The patient understood and was willing to proceed. A procedu ral pause was performed. The patient's name, date of , and procedure to be performed were verif ied. The central line was inserted with all elements of maximal sterile barrier technique. All of th e following were used: head covering, facial mask, sterile gown, sterile gloves, a large sterile she et, hand hygiene, and 2% chlorhexidine for cutaneous antisepsis. The right neck and anterior/super ior chest wall was prepped and draped in usual sterile fashion. Limited sonography of the right neck was then performed. Noted is a patent right internal jugular ve in. Ultrasound images were recorded and stored in the patient's medical record. Following the local injection of Xylocaine, the right internal jugular vein was punctured under sono graphic guidance with a 20-gauge needle through which a 0.018 inch floppy tip guidewire was advanced into the superior vena cava. The tract was dilated to 5 Italian and the wire was then replaced with a 0.035 in Amplatz guidewire. A tunnel was then created from the anterior lateral aspect of the sup erior right chest wall to the puncture site in the neck and the catheter was pulled through the trac t. Serial dilatation was then performed and a 16 Italian peel away sheath was introduced. The 14.5 Italian 23cm tip to cuff Angiodynamics BioFlo DuraMax dialysis catheter was advanced through the 16 F rench peel-away sheath. The tip of the catheter was confirmed in position within the right atrium. T he peel-away sheath was removed. The 2 ports were each flushed with 2.3 ml of 1:1000 heparin. The c atheter was secured to the skin with 2-0 silk. The wound in the neck was closed with 4-0 Vicryl suture using subcuticular running technique. The site was dressed. The patient tolerated the proce dure well. COMPARISON: None. FINDINGS: Final radiographic images demonstrate the tip of the catheter in the upper right atrium. A total of 0.1 minutes of fluoroscopy time was used. The ultrasound images demonstrate the needle entering e jugular vein. Ultrasound images were recorded and stored in the patient's medical record. IMPRESSION: 1. Percutaneous insertion of right internal jugular dialysis tunneled dialysis catheter under fluoro scopic and sonographic guidance. RPTAT: QQ .Dexter Leiva MD, MD Date Time Electronically viewed and signed by .Dexter Leiva MD, MD on 09/19/2016 12:45 .R/
[2016-09-19] MEDS: ASPIRIN 325 MG TAB PO SCH (15:47)
[2016-09-19] MEDS: HEPARIN 5,000 UNIT/0.5 ML SYG SC SCH ×2 (15:55→21:40)
--- NOTE | 2016-09-19 22:59 | PN ---
Date/Time of Note Date/Time of Note DATE: 09/19/16 TIME: 22:58 Assessment/Plan VTE Prophylaxis VTE Prophylaxis Intervention: other Lines/Catheters IV C[facility] Type [facility]from [facility] Urinary Cath still in place: No Assessment/Plan Chief Complaint/Hosp Course IMPRESSION: 1. Chronic kidney disease V, nearing dialysis. 2. Metabolic acidosis. 3. Leukocytosis. 4. Hypertension. 5. Uremia. 6. Pulmonary edema. plan hd when Problems: Subjective 24 Hr Interval Summary Respiratory: no complaints, shortness of breath Exam/Review of Systems Vital Signs Vitals Vital Signs Date Time Temp Pulse Resp B/P Pulse Ox O2 Delivery O2 Flow Rate FiO2 09/19/16 20:09 98.5 97 20 146/76 95 09/19/16 10:15 Nasal Cannula 2 Intake and Output 09/18/16 09/18/16 09/19/16 15:00 23:00 07:00 Intake Total 720 ml 200 ml Output Total 500 ml Balance 220 ml 200 ml Exam Respiratory: clear to auscultation Cardiovascular: regular rate and rhythm Results Result Diagram: 09/19/16 0640 09/19/16 0640 Results 24 hrs Laboratory Tests Test 09/19/16 00:28 09/19/16 06:40 Creatine Kinase 518 H Creatine Kinase Index 0.6 Creatinine Kinase MB (Mass) 2.96 H Troponin I 2.010 *H White Blood Count 10.1 Red Blood Count 2.58 L Hemoglobin 7.7 L Hematocrit 23.3 L Mean Corpuscular Volume 90.3 Mean Corpuscular Hemoglobin 29.8 Mean Corpuscular Hemoglobin Concent 33.0 Red Cell Distribution Width 14.5 Platelet Count 287 Mean Platelet Volume 10.5 H Neutrophils % 71.6 Lymphocytes % 13.9 L Monocytes % 12.1 H Eosinophils % 1.7 Basophils % 0.1 Nucleated Red Blood Cells % 0.0 Neutrophils # 7.2 Lymphocytes # 1.4 Monocytes # 1.2 H Eosinophils # 0.2 Basophils # 0.0 Nucleated Red Blood Cells # 0.0 Sodium Level 133 L Potassium Level 4.3 Chloride Level 99 Carbon Dioxide Level 17 L Anion Gap 21 H Blood Urea Nitrogen 112 H Creatinine 14.66 H Glucose Level 99 Calcium Level 6.6 L Total Bilirubin 0.0 L Direct Bilirubin 0.00 Indirect Bilirubin 0.0 Aspartate Amino Transf (AST/SGOT) 19 Alanine Aminotransferase (ALT/SGPT) 20 Alkaline Phosphatase 86 Total Protein 6.3 Albumin 3.0 L Globulin 3.30 H Albumin/Globulin Ratio 0.90 Medications Medications Current Medications Ondansetron HCl (Zofran Inj) 4 mg Q6H PRN IV NAUSEA AND/OR VOMITING Last administered on 09/19/16 00:45; Admin Dose 4 MG; Start 09/16/16 at 09:00 Docusate Sodium (Colace) 100 mg Q12H PRN PO CONSTIPATION; Start 09/16/16 at 09: 00 Pantoprazole (Protonix Iv) 40 mg DAILY@06 IV Last administered on 09/19/16 06: 18; Admin Dose 40 MG; Start 09/17/16 at 06:00 Hydralazine HCl (Apresoline) 10 mg Q6H PRN IV sbp >170 Last administered on 12:03; Admin Dose 10 MG; Start 09/16/16 at 17:00 Guaifenesin/ Codeine Phosphate (Robitussin Ac Liquid Cup) 5 ml Q8H PRN PO cough Last administered on 09/18/16 05:10; Admin Dose 5 ML; Start 09/18/16 at 05:00 Nitroglycerin (Nitroglycerin (Sl Tab) 0.4 Mg) 1 tab Q5M PRN SL ANGINA Last administered on 09/18/16 21:54; Admin Dose 1 TAB; Start 09/18/16 at 10:30 Morphine Sulfate (morphine) 2 mg Q4H PRN IV PAIN 5-10 Last administered on 09/18 12:47; Admin Dose 2 MG; Start 09/18/16 at 13:00 Carvedilol (Coreg) 6.25 mg BID PO Last administered on 09/19/16 21:27; Admin Dose 6.25 MG; Start 09/19/16 at 21:00 Hydralazine HCl (Apresoline) 50 mg Q8 PO Last administered on 09/19/16 21:28; Admin Dose 50 MG; Start 09/19/16 at 14:00 Aspirin (Aspirin) 325 mg DAILY PO Last administered on 09/19/16 15:47; Admin Dose 325 MG; Start 09/19/16 at 13:00 Heparin Sodium (Porcine) (Heparin (5000 Units/0.5 ml)) 5,000 unit Q8 SC Last administered on 09/19/16t 21:40; Admin Dose 5,000 UNIT; Start 09/19/16 at 14:00 LUCAS WAHL MD Sep 19, 2016 22:59
[2016-09-20] VITALS (21 sets, daily range): BP systolic 122–171; BP diastolic 64–91; PULSE 80–98; RESP 18–21
[2016-09-20] MEDS: PANTOPRAZOLE 40 MG INJ IV SCH (06:11)
[2016-09-20] MEDS: FUROSEMIDE 40 MG INJ IV SCH ×2 (06:12→19:33)
[2016-09-20] MEDS: HEPARIN 5,000 UNIT/0.5 ML SYG SC SCH ×3 (06:22→22:27)
[2016-09-20 06:45] LABS: POTASSIUM 4.4 mmol/L (3.5-5.1)
[2016-09-20 06:47] LABS: CREATININE 10.77 mg/dl (0.61-1.24)
[2016-09-20 06:48] LABS: CALCIUM 6.1 mg/dl (8.4-10.2)
--- NOTE | 2016-09-20 12:48 | CONS ---
Date/Time of Note Date/Time of Note DATE: 09/20/16 TIME: 12:46 Assessment/Plan Assessment/Plan Additional Assessment/Plan IMPRESSION: 1. Renal failure. 2. Congestive heart failure. 3. Pulmonary hypertension. 4. Anemia. 5. Retrosternal discomfort. 6. Epigastric pain. 7. Gastroesophageal reflux disease Plan continue PPI,HD Consultation Date/Type/Reason Admit Date/Time Sep 16, 2016 at 03:23 Initial Consult Date Type of Consultation: Cardiology Referring Provider: LUCAS WAHL MD 24 HR Interval Summary Free Text/Dictation no heart burn no retrosternal pain Exam/Review of Systems Vital Signs Vitals Vital Signs Date Time Temp Pulse Resp B/P Pulse Ox O2 Delivery O2 Flow Rate FiO2 09/20/16 12:12 95 09/20/16 11:22 98.1 20 124/72 97 09/19/16 10:15 Nasal Cannula 2 Intake and Output 09/19/16 09/19/16 09/20/16 15:00 23:00 07:00 Intake Total 800 ml 150 ml Balance 800 ml 150 ml Exam Constitutional: alert, oriented, well developed Psych: nl mood/affect, no complaints Head: atraumatic, normocephalic Eyes: EOMI, PERRL, nl conjunctiva, nl lids, nl sclera ENMT: nl external ears & nose, nl lips & teeth, nl nasal mucosa & septum Neck: non-tender, supple Respiratory: clear to auscultation, normal air movement Cardiovascular: nl pulses, regular rate and rhythm Gastrointestinal: nl liver, spleen, non-tender, soft Musculoskeletal: nl extremities to inspection, nl gait and stance Extremities: normal pulses 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, nl mental status, nl speech, nl strength Skin: nl turgor, No rash or lesions Lymph: nl lymph nodes Results Result Diagram: 09/19/16 0640 09/20/16 0530 Results 24 hrs Laboratory Tests Test 09/20/16 05:30 Sodium Level 138 Potassium Level 4.4 Chloride Level 97 Carbon Dioxide Level 25 Anion Gap 20 H Blood Urea Nitrogen 72 #H Creatinine 10.77 #H Glucose Level 108 Calcium Level 6.1 L Medications Medications Current Medications Ondansetron HCl (Zofran Inj) 4 mg Q6H PRN IV NAUSEA AND/OR VOMITING Last administered on 09/19/16t 00:45; Admin Dose 4 MG; Start 09/16/16 at 09:00 Docusate Sodium (Colace) 100 mg Q12H PRN PO CONSTIPATION; Start 09/16/16 at 09: 00 Pantoprazole (Protonix Iv) 40 mg DAILY@06 IV Last administered on 09/20/16 06: 11; Admin Dose 40 MG; Start 09/17/16 at 06:00 Hydralazine HCl (Apresoline) 10 mg Q6H PRN IV sbp >170 Last administered on 12:03; Admin Dose 10 MG; Start 09/16/16 at 17:00 Guaifenesin/ Codeine Phosphate (Robitussin Ac Liquid Cup) 5 ml Q8H PRN PO cough Last administered on 09/18/16 05:10; Admin Dose 5 ML; Start 09/18/16 at 05:00 Nitroglycerin (Nitroglycerin (Sl Tab) 0.4 Mg) 1 tab Q5M PRN SL ANGINA Last administered on 09/18/16 21:54; Admin Dose 1 TAB; Start 09/18/16 at 10:30 Morphine Sulfate (morphine) 2 mg Q4H PRN IV PAIN 5-10 Last administered on 09/18 12:47; Admin Dose 2 MG; Start 09/18/16 at 13:00 Carvedilol (Coreg) 6.25 mg BID PO Last administered on 09/19/16 21:27; Admin Dose 6.25 MG; Start 09/19/16 at 21:00 Hydralazine HCl (Apresoline) 50 mg Q8 PO Last administered on 09/20/16 06:11; Admin Dose 50 MG; Start 09/19/16 at 14:00 Aspirin (Aspirin) 325 mg DAILY PO Last administered on 09/19/16 15:47; Admin Dose 325 MG; Start 09/19/16 at 13:00 Heparin Sodium (Porcine) (Heparin (5000 Units/0.5 ml)) 5,000 unit Q8 SC Last administered on 09/20/16 06:22; Admin Dose 5,000 UNIT; Start 09/19/16 at 14:00 JUAN PARRA MD Sep 20, 2016 12:48
--- NOTE | 2016-09-20 13:34 | CONS ---
DATE OF ADMISSION: 09/16/2016 DATE OF CONSULTATION: 09/19/2016 GI CONSULT FOLLOWUP HISTORY OF PRESENT ILLNESS: A 50-year-old male who presented with CHF and renal failure. The patie nt had refused dialysis. Finally he agreed, so he is going downstairs for a tunneled catheter. He also had retrosternal heartburn and acid reflux, which has reduced now. OBJECTIVE: VITAL SIGNS: Stable. ABDOMEN: Benign. LUNGS: Air entry diminished. EXTREMITIES: No edema. CENTRAL NERVOUS SYSTEM: Grossly within normal limits. IMPRESSION: 1. Retrosternal discomfort. 2. Gastroesophageal reflux disease. 3. Renal failure. 4. Congestive heart failure. 5. End-stage renal disease. 6. Hypertension. 7. Non-ST elevation myocardial infarction. PLAN: At this point, is to continue present care. Definitely the patient needs dialysis and he has agreed for it. Dictated By: JUAN SARKAR/GUSTAVO Conf#: [id number] DID#: [id number] CC: JUAN PARRA MD;*EndCC*
--- NOTE | 2016-09-20 16:05 | CONS ---
Date/Time of Note Date/Time of Note DATE: 09/20/16 TIME: 16:02 Assessment/Plan Assessment/Plan Chief Complaint/Hosp Course IMp: 1.CHF-Diastolic acute. Echo 08/2016 with EF 50%/mod MR 2.HTN 3.CKD stage IV-not on HD asof yet 4.Chest pain 5.SOB-secondary to CHF/volume overload 6.Nstemi-with decreasing enzymes and no chest pain currently Rec: -tele -Trend cardiac enzymes -Continue BB/hydralazine and f/u BP -Now on HD -LHC scheduled friday at 9:30 am. NPO after MN friday night Problems: Consultation Date/Type/Reason Admit Date/Time Sep 16, 2016 at 03:23 Initial Consult Date 09/17/2016 Type of Consultation: Cardiology Reason for Consultation Nstemi Referring Provider: LUCAS WAHL MD Exam/Review of Systems Vital Signs Vitals Vital Signs Date Time Temp Pulse Resp B/P Pulse Ox O2 Delivery O2 Flow Rate FiO2 09/20/16 15:29 98.2 92 20 131/71 98 09/19/16 10:15 Nasal Cannula 2 Intake and Output 09/19/16 09/19/16 09/20/16 15:00 23:00 07:00 Intake Total 800 ml 150 ml Balance 800 ml 150 ml Exam Review of Systems: CONSTITUTIONAL: No fevers, chills. PULMONARY: No sob CARDIOVASCULAR: intermittent chest pain GASTROINTESTINAL: No nausea/vomiting. GENITOURINARY: No hematuria/dysuria. MUSCULOSKELETAL: No myagias/arthalgias. PSYCHIATRIC: The patient denies depression. NEUROLOGIC: No weakness Constitutional: alert, oriented Psych: no complaints Head: normocephalic ENMT: mucosa pink and moist Neck: jvd (9 cm water), supple Respiratory: diminished breath sounds (at bases/B) Cardiovascular: regular rate and rhythm Gastrointestinal: non-tender, soft Extremities: edema (none) Neurological: lethargic, other (No focal deficits) Results Result Diagram: 09/19/16 0640 09/20/16 0530 Results 24 hrs Laboratory Tests Test 09/20/16 05:30 Sodium Level 138 Potassium Level 4.4 Chloride Level 97 Carbon Dioxide Level 25 Anion Gap 20 H Blood Urea Nitrogen 72 #H Creatinine 10.77 #H Glucose Level 108 Calcium Level 6.1 L Medications Medications Current Medications Ondansetron HCl (Zofran Inj) 4 mg Q6H PRN IV NAUSEA AND/OR VOMITING Last administered on 09/19/16 00:45; Admin Dose 4 MG; Start 09/16/16 at 09:00 Docusate Sodium (Colace) 100 mg Q12H PRN PO CONSTIPATION; Start 09/16/16 at 09: 00 Pantoprazole (Protonix Iv) 40 mg DAILY@06 IV Last administered on 09/20/16 06: 11; Admin Dose 40 MG; Start 09/17/16 at 06:00 Hydralazine HCl (Apresoline) 10 mg Q6H PRN IV sbp >170 Last administered on 12:03; Admin Dose 10 MG; Start 09/16/16 at 17:00 Guaifenesin/ Codeine Phosphate (Robitussin Ac Liquid Cup) 5 ml Q8H PRN PO cough Last administered on 09/18/16 05:10; Admin Dose 5 ML; Start 09/18/16 at 05:00 Nitroglycerin (Nitroglycerin (Sl Tab) 0.4 Mg) 1 tab Q5M PRN SL ANGINA Last administered on 09/18/16 21:54; Admin Dose 1 TAB; Start 09/18/16 at 10:30 Morphine Sulfate (morphine) 2 mg Q4H PRN IV PAIN 5-10 Last administered on 09/18 12:47; Admin Dose 2 MG; Start 09/18/16 at 13:00 Carvedilol (Coreg) 6.25 mg BID PO Last administered on 09/19/16 21:27; Admin Dose 6.25 MG; Start 09/19/16 at 21:00 Hydralazine HCl (Apresoline) 50 mg Q8 PO Last administered on 09/20/16 06:11; Admin Dose 50 MG; Start 09/19/16 at 14:00 Aspirin (Aspirin) 325 mg DAILY PO Last administered on 09/19/16 15:47; Admin Dose 325 MG; Start 09/19/16 at 13:00 Heparin Sodium (Porcine) (Heparin (5000 Units/0.5 ml)) 5,000 unit Q8 SC Last administered on 09/20/16 06:22; Admin Dose 5,000 UNIT; Start 09/19/16 at 14:00 MATEO HODGSON 24, 2017 16:05
--- NOTE | 2016-09-20 16:10 | PN ---
Date/Time of Note Date/Time of Note DATE: 09/20/16 TIME: 16:08 Assessment/Plan VTE Prophylaxis VTE Prophylaxis Intervention: SCD's Lines/Catheters [facility] Sal[facility] Lock Urinary Cath still in place: No Assessment/Plan Chief Complaint/Hosp Course 1. Chronic kidney disease V, nearing dialysis. 2. Metabolic acidosis. 3. Leukocytosis. 4. Hypertension. 5. Uremia. 6. Pulmonary edema. Problems: Assessment/Plan 1. Pt tolerating HD well Subjective 24 Hr Interval Summary Constitutional: improved, no complaints Eyes: no complaints ENT: no complaints Respiratory: no complaints Gastrointestinal: no complaints Genitourinary: other (hisitancy) Exam/Review of Systems Vital Signs Vitals Vital Signs Date Time Temp Pulse Resp B/P Pulse Ox O2 Delivery O2 Flow Rate FiO2 09/20/16 16:04 90 09/20/16 15:29 98.2 20 131/71 98 09/19/16 10:15 Nasal Cannula 2 Intake and Output 09/19/16 09/19/16 09/20/16 15:00 23:00 07:00 Intake Total 800 ml 150 ml Balance 800 ml 150 ml Exam Constitutional: alert, oriented Psych: anxiety, nl mood/affect, no complaints Eyes: nl conjunctiva ENMT: nl external ears & nose Neck: supple Respiratory: clear to auscultation Cardiovascular: regular rate and rhythm Gastrointestinal: soft Genitourinary - Male: nl penis Skin: other (righ permacath) Results Result Diagram: 09/19/16 0640 09/20/16 0530 Results 24 hrs Laboratory Tests Test 09/20/16 05:30 Sodium Level 138 Potassium Level 4.4 Chloride Level 97 Carbon Dioxide Level 25 Anion Gap 20 H Blood Urea Nitrogen 72 #H Creatinine 10.77 #H Glucose Level 108 Calcium Level 6.1 L Medications Medications Current Medications Ondansetron HCl (Zofran Inj) 4 mg Q6H PRN IV NAUSEA AND/OR VOMITING Last administered on 09/19/16 00:45; Admin Dose 4 MG; Start 09/16/16 at 09:00 Docusate Sodium (Colace) 100 mg Q12H PRN PO CONSTIPATION; Start 09/16/16 at 09: 00 Pantoprazole (Protonix Iv) 40 mg DAILY@06 IV Last administered on 09/20/16 06: 11; Admin Dose 40 MG; Start 09/17/16 at 06:00 Hydralazine HCl (Apresoline) 10 mg Q6H PRN IV sbp >170 Last administered on 12:03; Admin Dose 10 MG; Start 09/16/16 at 17:00 Guaifenesin/ Codeine Phosphate (Robitussin Ac Liquid Cup) 5 ml Q8H PRN PO cough Last administered on 09/18/16 05:10; Admin Dose 5 ML; Start 09/18/16 at 05:00 Nitroglycerin (Nitroglycerin (Sl Tab) 0.4 Mg) 1 tab Q5M PRN SL ANGINA Last administered on 09/18/16 21:54; Admin Dose 1 TAB; Start 09/18/16 at 10:30 Morphine Sulfate (morphine) 2 mg Q4H PRN IV PAIN 5-10 Last administered on 09/18 12:47; Admin Dose 2 MG; Start 09/18/16 at 13:00 Carvedilol (Coreg) 6.25 mg BID PO Last administered on 09/19/16 21:27; Admin Dose 6.25 MG; Start 09/19/16 at 21:00 Hydralazine HCl (Apresoline) 50 mg Q8 PO Last administered on 09/20/16 06:11; Admin Dose 50 MG; Start 09/19/16 at 14:00 Aspirin (Aspirin) 325 mg DAILY PO Last administered on 09/19/16 15:47; Admin Dose 325 MG; Start 09/19/16 at 13:00 Heparin Sodium (Porcine) (Heparin (5000 Units/0.5 ml)) 5,000 unit Q8 SC Last administered on 09/20/16 06:22; Admin Dose 5,000 UNIT; Start 09/19/16 at 14:00 RONDA VILLEGAS Sep 20, 2016 16:10
[2016-09-20] MEDS: ASPIRIN 325 MG TAB PO SCH (20:36)
[2016-09-21] VITALS (15 sets, daily range): BP systolic 101–155; BP diastolic 57–94; PULSE 80–98; RESP 18–20
[2016-09-21] MEDS: PANTOPRAZOLE 40 MG INJ IV SCH (05:34)
[2016-09-21] MEDS: FUROSEMIDE 40 MG INJ IV SCH ×2 (05:37→17:29)
[2016-09-21] MEDS: HEPARIN 5,000 UNIT/0.5 ML SYG SC SCH ×3 (05:44→22:33)
[2016-09-21 07:07] LABS: ADD SCAN DIFF NO
[2016-09-21 07:10] LABS: BASOPHILS % 0.2 % (0.0-2.0); EOSINOPHILS # 0.2 10^3/ul (0.0-0.5); EOSINOPHILS % 2.8 % (0.0-7.0); HEMATOCRIT 23.9 % (42.0-52.0); HEMOGLOBIN 7.4 g/dl (14.0-18.0); LYMPHOCYTES # 1.9 10^3/ul (0.8-2.9); LYMPHOCYTES % 23.1 % (15.0-51.0); MEAN CORPUSCULAR HEMOGLOBIN 28.8 pg (29.0-33.0); MONOCYTE # 1.3 10^3/ul (0.3-0.9); MONOCYTES % 16.3 % (0.0-11.0); NEUTROPHIL # 4.6 10^3/ul (1.6-7.5); NEUTROPHILS % 56.5 % (39.0-77.0); PLATELET COUNT 307 10^3/UL (140-415); RED BLOOD COUNT 2.57 10^6/ul (4.70-6.10); RED CELL DISTRIBUTION WIDTH 14.3 % (11.5-14.5); WHITE BLOOD COUNT 8.1 10^3/ul (4.8-10.8)
[2016-09-21 07:27] LABS: POTASSIUM 4.4 mmol/L (3.5-5.1)
[2016-09-21 07:29] LABS: CREATININE 8.73 mg/dl (0.61-1.24)
[2016-09-21 07:30] LABS: CALCIUM 6.8 mg/dl (8.4-10.2)
[2016-09-21] MEDS: ASPIRIN 325 MG TAB PO SCH (08:18)
[2016-09-21 08:59] LABS: HEMOGLOBIN 6.1 g/dl (14.0-18.0)
--- NOTE | 2016-09-21 11:51 | PN ---
Date/Time of Note Date/Time of Note DATE: 09/21/16 TIME: 11:48 Assessment/Plan VTE Prophylaxis VTE Prophylaxis Intervention: SCD's Lines/Catheters [facility] Saline [facility] Urinary Cath still in place: No Assessment/Plan Chief Complaint/Hosp Course 1. Chronic kidney disease V, HD dependent. 2. Metabolic acidosis, better. 3. Leukocytosis. 4. Hypertension, stable. 5. Uremia. 6. Pulmonary edema, resolved 7. Lower extremity eczema. Problems: Assessment/Plan 1. Blood transfusion today, consent signed 2. Continue HD 3. cream for eczema 4. Discharge tomorrow Subjective 24 Hr Interval Summary Constitutional: no complaints Eyes: no complaints ENT: no complaints Respiratory: no complaints Skin: other (rash for 1 week), skin lesions Exam/Review of Systems Vital Signs Vitals Vital Signs Date Time Temp Pulse Resp B/P Pulse Ox O2 Delivery O2 Flow Rate FiO2 09/21/16 09:15 88 18 09/21/16 04:20 98.2 112/63 100 09/20/16 17:44 Room Air 09/20/16 09:00 2.0 Intake and Output 09/20/16 09/20/16 09/21/16 15:00 23:00 07:00 Intake Total 1100 ml 480 ml Output Total 2000 ml Balance -900 ml 480 ml Exam Constitutional: alert, oriented Psych: no complaints Head: normocephalic Eyes: nl conjunctiva Skin: nl turgor, rash or lesions Results Result Diagram: 09/21/16 0603 09/21/16 0602 Results 24 hrs Laboratory Tests Test 09/21/16 06:02 09/21/16 06:03 Sodium Level 136 Potassium Level 4.4 Chloride Level 96 L Carbon Dioxide Level 29 Anion Gap 15 Blood Urea Nitrogen 56 H Creatinine 8.73 #H Glucose Level 106 Calcium Level 6.8 L White Blood Count 8.1 Red Blood Count 2.57 L Hemoglobin 7.4 L Hematocrit 23.9 L Mean Corpuscular Volume 93.0 Mean Corpuscular Hemoglobin 28.8 L Mean Corpuscular Hemoglobin Concent 31.0 L Red Cell Distribution Width 14.3 Platelet Count 307 Mean Platelet Volume 10.0 Neutrophils % 56.5 Lymphocytes % 23.1 Monocytes % 16.3 H Eosinophils % 2.8 Basophils % 0.2 Nucleated Red Blood Cells % 0.0 Neutrophils # 4.6 Lymphocytes # 1.9 Monocytes # 1.3 H Eosinophils # 0.2 Basophils # 0.0 Nucleated Red Blood Cells # 0.0 Medications Medications Current Medications Ondansetron HCl (Zofran Inj) 4 mg Q6H PRN IV NAUSEA AND/OR VOMITING Last administered on 09/19/16 00:45; Admin Dose 4 MG; Start 09/16/16 at 09:00 Docusate Sodium (Colace) 100 mg Q12H PRN PO CONSTIPATION; Start 09/16/16 at 09: 00 Pantoprazole (Protonix Iv) 40 mg DAILY@06 IV Last administered on 09/21/16 05: 34; Admin Dose 40 MG; Start 09/17/16 at 06:00 Hydralazine HCl (Apresoline) 10 mg Q6H PRN IV sbp >170 Last administered on 12:03; Admin Dose 10 MG; Start 09/16/16 at 17:00 Guaifenesin/ Codeine Phosphate (Robitussin Ac Liquid Cup) 5 ml Q8H PRN PO cough Last administered on 09/18/16 05:10; Admin Dose 5 ML; Start 09/18/16 at 05:00 Nitroglycerin (Nitroglycerin (Sl Tab) 0.4 Mg) 1 tab Q5M PRN SL ANGINA Last administered on 09/18/16 21:54; Admin Dose 1 TAB; Start 09/18/16 at 10:30 Morphine Sulfate (morphine) 2 mg Q4H PRN IV PAIN 5-10 Last administered on 09/18 12:47; Admin Dose 2 MG; Start 09/18/16 at 13:00 Carvedilol (Coreg) 6.25 mg BID PO Last administered on 09/20/16 20:37; Admin Dose 6.25 MG; Start 09/19/16 at 21:00 Hydralazine HCl (Apresoline) 50 mg Q8 PO Last administered on 09/20/16 22:25; Admin Dose 50 MG; Start 09/19/16 at 14:00 Aspirin (Aspirin) 325 mg DAILY PO Last administered on 09/21/16 08:18; Admin Dose 325 MG; Start 09/19/16 at 13:00 Heparin Sodium (Porcine) (Heparin (5000 Units/0.5 ml)) 5,000 unit Q8 SC Last administered on 09/21/16t 05:44; Admin Dose 5,000 UNIT; Start 09/19/16 at 14:00 Epoetin Cj (Epogen (Esrd)) 6,000 units MoWeFr@17 SC ; Start 09/23/16 at 17:00 RONDA VILLEGAS Sep 21, 2016 11:51
--- NOTE | 2016-09-21 12:28 | CONS ---
Date/Time of Note Date/Time of Note DATE: 09/21/16 TIME: 12:27 Assessment/Plan Assessment/Plan Additional Assessment/Plan IMPRESSION: 1. Retrosternal discomfort.resolved 2. Gastroesophageal reflux disease.better 3. Renal failure. 4. Congestive heart failure. 5. End-stage renal disease. 6. Hypertension. 7. Non-ST elevation myocardial infarction. Plan continue present care Consultation Date/Type/Reason Admit Date/Time Sep 16, 2016 at 03:23 Type of Consultation: Cardiology Referring Provider: LUCAS WAHL MD 24 HR Interval Summary Free Text/Dictation skin lesion lower extremity Constitutional: improved Exam/Review of Systems Vital Signs Vitals Vital Signs Date Time Temp Pulse Resp B/P Pulse Ox O2 Delivery O2 Flow Rate FiO2 09/21/16 12:12 92 09/21/16 09:15 18 09/21/16 04:20 98.2 112/63 100 09/20/16 17:44 Room Air 09/20/16 09:00 2.0 Intake and Output 09/20/16 09/20/16 09/21/16 15:00 23:00 07:00 Intake Total 1100 ml 480 ml Output Total 2000 ml Balance -900 ml 480 ml Exam Constitutional: alert, oriented, well developed Psych: nl mood/affect, no complaints Head: atraumatic, normocephalic Eyes: EOMI, PERRL, nl conjunctiva, nl lids, nl sclera ENMT: nl external ears & nose, nl lips & teeth, nl nasal mucosa & septum Neck: non-tender, supple Respiratory: clear to auscultation, normal air movement Cardiovascular: nl pulses, regular rate and rhythm Gastrointestinal: nl liver, spleen, non-tender, soft Musculoskeletal: nl extremities to inspection, nl gait and stance Extremities: normal pulses 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, nl mental status, nl speech, nl strength Skin: nl turgor, No rash or lesions Lymph: nl lymph nodes Results Result Diagram: 09/21/16 0603 09/21/16 0602 Results 24 hrs Laboratory Tests Test 09/21/16 06:02 09/21/16 06:03 Sodium Level 136 Potassium Level 4.4 Chloride Level 96 L Carbon Dioxide Level 29 Anion Gap 15 Blood Urea Nitrogen 56 H Creatinine 8.73 #H Glucose Level 106 Calcium Level 6.8 L White Blood Count 8.1 Red Blood Count 2.57 L Hemoglobin 7.4 L Hematocrit 23.9 L Mean Corpuscular Volume 93.0 Mean Corpuscular Hemoglobin 28.8 L Mean Corpuscular Hemoglobin Concent 31.0 L Red Cell Distribution Width 14.3 Platelet Count 307 Mean Platelet Volume 10.0 Neutrophils % 56.5 Lymphocytes % 23.1 Monocytes % 16.3 H Eosinophils % 2.8 Basophils % 0.2 Nucleated Red Blood Cells % 0.0 Neutrophils # 4.6 Lymphocytes # 1.9 Monocytes # 1.3 H Eosinophils # 0.2 Basophils # 0.0 Nucleated Red Blood Cells # 0.0 Medications Medications Current Medications Ondansetron HCl (Zofran Inj) 4 mg Q6H PRN IV NAUSEA AND/OR VOMITING Last administered on 09/19/16 00:45; Admin Dose 4 MG; Start 09/16/16 at 09:00 Docusate Sodium (Colace) 100 mg Q12H PRN PO CONSTIPATION; Start 09/16/16 at 09: 00 Pantoprazole (Protonix Iv) 40 mg DAILY@06 IV Last administered on 09/21/16 05: 34; Admin Dose 40 MG; Start 09/17/16 at 06:00 Hydralazine HCl (Apresoline) 10 mg Q6H PRN IV sbp >170 Last administered on 12:03; Admin Dose 10 MG; Start 09/16/16 at 17:00 Guaifenesin/ Codeine Phosphate (Robitussin Ac Liquid Cup) 5 ml Q8H PRN PO cough Last administered on 09/18/16 05:10; Admin Dose 5 ML; Start 09/18/16 at 05:00 Nitroglycerin (Nitroglycerin (Sl Tab) 0.4 Mg) 1 tab Q5M PRN SL ANGINA Last administered on 09/18/16 21:54; Admin Dose 1 TAB; Start 09/18/16 at 10:30 Morphine Sulfate (morphine) 2 mg Q4H PRN IV PAIN 5-10 Last administered on 09/18 12:47; Admin Dose 2 MG; Start 09/18/16 at 13:00 Carvedilol (Coreg) 6.25 mg BID PO Last administered on 09/20/16 20:37; Admin Dose 6.25 MG; Start 09/19/16 at 21:00 Hydralazine HCl (Apresoline) 50 mg Q8 PO Last administered on 09/20/16 22:25; Admin Dose 50 MG; Start 09/19/16 at 14:00 Aspirin (Aspirin) 325 mg DAILY PO Last administered on 09/21/16 08:18; Admin Dose 325 MG; Start 09/19/16 at 13:00 Heparin Sodium (Porcine) (Heparin (5000 Units/0.5 ml)) 5,000 unit Q8 SC Last administered on 09/21/16 05:44; Admin Dose 5,000 UNIT; Start 09/19/16 at 14:00 Epoetin Cj (Epogen (Esrd)) 6,000 units MoWeFr@17 SC ; Start 09/21/16 at 17:00 ; Status UNV Clobetasol Propionate (Temovate 0.05% Cr) 1 applic BID TOP ; Start 09/21/16 at 21:00 JUAN PARRA MD Sep 21, 2016 12:28
[2016-09-21] MEDS ORDERED: EPOETIN 3000 UNITS/1 ML INJ (ESRD) SC SCH (13:30)
--- NOTE | 2016-09-21 16:18 | PN ---
DATE: 09/21/2016 SUBJECTIVE: On questioning, the patient has no complaints of chest pain or shortness of breath. PHYSICAL EXAMINATION: VITAL SIGNS: Blood pressure is 112/63. The vital signs this morning did not include the blood pres sure. Heart rate is 92 and respiratory rate is 18. GENERAL: He is conscious, alert and oriented. Appears to be in no acute distress and is ambulating on the floor. NECK: JVP not raised. Carotid pulses with normal upstrokes. CHEST: Bilaterally symmetrical and nontender with a dialysis catheter in the right upper chest. HEART: PMI localized in the fourth intercostal space 1 cm medial to the midclavicular line. S1 and S2 are regular. I to II/ systolic murmur is heard at the apex. No gallop, rub or click apprecia arleth. LUNGS: Reveals clear lung leone to percussion and auscultation. No intercostal retractions are se en. ABDOMEN: Reveals a soft, nontender belly without any organomegaly. Bowel sounds are present. EXTREMITIES: Good femoral and pedal pulses. No femoral bruits. No pedal edema. LABORATORY DATA: So far reveals that his white count is down to 8.1, hemoglobin is slightly low at 7.4, platelet count is normal at 207,000. His BUN and creatinine are 56 and 8.73, respectively. Telemetry reveals sinus rhythm. IMPRESSION: 1. Hypertension, which is under control at this stage. 2. Congestive heart failure, diastolic. Echocardiogram showed ejection fraction of 50% with modera te mitral regurgitation in 08/2016. 3. Coronary artery disease. 4. Chest pain, which is stable right now. 5. History of non-ST elevation myocardial infarction. RECOMMENDATIONS: The patient is scheduled for cardiac catheterization on Friday morning because of his NSTEMI and because of his chest pain and shortness of breath, although they are stable at this s tage. We will continue the same medications and treatment at this stage. Dictated By: BENJAMIN CHA MD, RA/GUSATVO Conf#: [id number] DID#: [id number]
[2016-09-21] MEDS ORDERED: CLOBETASOL 0.05% 15 GM CR TOP SCH (21:00)
[2016-09-21] MEDS: CLOBETASOL 0.05% 15 GM CR TOP SCH (22:26)
[2016-09-22] VITALS (12 sets, daily range): BP systolic 110–138; BP diastolic 56–79; PULSE 72–88; RESP 16–18
[2016-09-22] MEDS: PANTOPRAZOLE 40 MG INJ IV SCH (05:22)
[2016-09-22] MEDS: FUROSEMIDE 40 MG INJ IV SCH ×2 (05:23→17:42)
[2016-09-22] MEDS: HEPARIN 5,000 UNIT/0.5 ML SYG SC SCH ×3 (05:24→20:52)
[2016-09-22] MEDS: ASPIRIN 325 MG TAB PO SCH (08:08)
[2016-09-22] MEDS: CLOBETASOL 0.05% 15 GM CR TOP SCH ×2 (08:09→20:35)
[2016-09-22] MEDS ORDERED: CLOBETASOL 0.05% 15 GM OINT TOP SCH (09:00)
--- NOTE | 2016-09-22 11:52 | CONS ---
Date/Time of Note Date/Time of Note DATE: 09/22/16 TIME: 11:51 Assessment/Plan Assessment/Plan Additional Assessment/Plan Additional Assessment/Plan IMPRESSION: 1. Retrosternal discomfort.resolved 2. Gastroesophageal reflux disease.better 3. Renal failure. 4. Congestive heart failure. 5. End-stage renal disease. 6. Hypertension. 7. Non-ST elevation myocardial infarction. Plan continue present care Patient should continue Protonix for next 6-8 weeks We will see him in the office after 2-3 weeks. Consultation Date/Type/Reason Admit Date/Time Sep 16, 2016 at 03:23 Type of Consultation: Cardiology Referring Provider: LUCAS WAHL MD 24 HR Interval Summary Free Text/Dictation Patient denies of abdominal pain, No chest pain or shortness of breath, No heartburn no nausea no vomiting. Constitutional: no complaints Exam/Review of Systems Vital Signs Vitals Vital Signs Date Time Temp Pulse Resp B/P Pulse Ox O2 Delivery O2 Flow Rate FiO2 09/22/16 10:54 98.2 84 18 110/56 99 09/22/16 00:00 Room Air 09/20/16 09:00 2.0 Intake and Output 09/21/16 09/21/16 09/22/16 15:00 23:00 07:00 Intake Total 500 ml 840 ml 750 ml Output Total 2000 ml 125 ml Balance -1500 ml 840 ml 625 ml Exam Constitutional: alert, oriented, well developed Psych: nl mood/affect, no complaints Head: atraumatic, normocephalic Eyes: EOMI, PERRL, nl conjunctiva, nl lids, nl sclera ENMT: nl external ears & nose, nl lips & teeth, nl nasal mucosa & septum Neck: non-tender, supple Respiratory: clear to auscultation, normal air movement Cardiovascular: nl pulses, regular rate and rhythm Gastrointestinal: nl liver, spleen, non-tender, soft Musculoskeletal: nl extremities to inspection, nl gait and stance Extremities: normal pulses 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, nl mental status, nl speech, nl strength Skin: nl turgor, No rash or lesions Lymph: nl lymph nodes Results Result Diagram: 09/21/16 0603 09/21/16 0602 Medications Medications Current Medications Ondansetron HCl (Zofran Inj) 4 mg Q6H PRN IV NAUSEA AND/OR VOMITING Last administered on 09/19/16 00:45; Admin Dose 4 MG; Start 09/16/16 at 09:00 Docusate Sodium (Colace) 100 mg Q12H PRN PO CONSTIPATION; Start 09/16/16 at 09: 00 Pantoprazole (Protonix Iv) 40 mg DAILY@06 IV Last administered on 09/22/16 05: 22; Admin Dose 40 MG; Start 09/17/16 at 06:00 Hydralazine HCl (Apresoline) 10 mg Q6H PRN IV sbp >170 Last administered on 12:03; Admin Dose 10 MG; Start 09/16/16 at 17:00 Guaifenesin/ Codeine Phosphate (Robitussin Ac Liquid Cup) 5 ml Q8H PRN PO cough Last administered on 09/18/16 05:10; Admin Dose 5 ML; Start 09/18/16 at 05:00 Nitroglycerin (Nitroglycerin (Sl Tab) 0.4 Mg) 1 tab Q5M PRN SL ANGINA Last administered on 09/18/16 21:54; Admin Dose 1 TAB; Start 09/18/16 at 10:30 Morphine Sulfate (morphine) 2 mg Q4H PRN IV PAIN 5-10 Last administered on 09/18 12:47; Admin Dose 2 MG; Start 09/18/16 at 13:00 Carvedilol (Coreg) 6.25 mg BID PO Last administered on 09/22/16 08:09; Admin Dose 6.25 MG; Start 09/19/16 at 21:00 Hydralazine HCl (Apresoline) 50 mg Q8 PO Last administered on 09/22/16 05:23; Admin Dose 50 MG; Start 09/19/16 at 14:00 Aspirin (Aspirin) 325 mg DAILY PO Last administered on 09/22/16 08:08; Admin Dose 325 MG; Start 09/19/16 at 13:00 Heparin Sodium (Porcine) (Heparin (5000 Units/0.5 ml)) 5,000 unit Q8 SC Last administered on 09/22/16 05:24; Admin Dose 5,000 UNIT; Start 09/19/16 at 14:00 Epoetin Cj (Epogen (Esrd)) 6,000 units MoWeFr@17 SC ; Start 09/23/16 at 17:00 Clobetasol Propionate (Temovate 0.05% Cr) 1 applic BID TOP Last administered on 09/22/16t 08:09; Admin Dose 1 APPLIC; Start 09/21/16 at 21:00 JUAN PARRA MD Sep 22, 2016 11:52
--- NOTE | 2016-09-22 13:56 | PN ---
DATE: 09/22/2016 On questioning, the patient denies any chest pain but does give history of slight shortness of breat h and slight cough. PHYSICAL EXAMINATION: VITAL SIGNS: Stable with blood pressure 129/75 was the highest yesterday and 118/70 was the lowest. He is afebrile. NECK: JVP not raised. CHEST: Bilaterally symmetrical. HEART: S1, S2 regular and a I/ systolic murmur is heard at this time apex. No gallop or rub appr eciated. LUNGS: Reveals clear lung leone to percussion and auscultation. No intercostal retractions are se en. ABDOMEN: Reveals a soft, nontender belly. Bowel sounds are present. EXTREMITIES: Good femoral and pedal pulses. No femoral bruits. No pedal edema. No clubbing or cy anosis. LABORATORY DATA: So far there are no new imaging studies and there is no new CBC or chemistries as well. IMPRESSION: 1. Hypertension, under control at this time. 2. Congestive heart failure, diastolic, with ejection fraction of 50% and moderate mitral regurgita tion in August 2016. 3. Coronary artery disease. 4. History of avd-[id number] myocardial infarction. RECOMMENDATIONS: The patient is scheduled for cardiac cath tomorrow. In the meantime, will continu e same medications on this patient. Dictated By: BENJAMIN CHA MD, RA/GUSTAVO Conf#: [id number] DID#: [id number]
--- NOTE | 2016-09-22 16:34 | PN ---
Date/Time of Note Date/Time of Note DATE: 09/22/16 TIME: 16:33 Assessment/Plan VTE Prophylaxis VTE Prophylaxis Intervention: other Lines/Catheters IV [facility]ter Type (from [facility] Sal[facility] Urinary Cath still in place: No Assessment/Plan Chief Complaint/Hosp Course IMPRESSION: 1. Chronic kidney disease V, nearing dialysis. 2. Metabolic acidosis. 3. Leukocytosis. 4. Hypertension. 5. Uremia. 6. Pulmonary edema.BETTER plan hd AM Problems: Subjective 24 Hr Interval Summary Respiratory: no complaints Cardiovascular: no complaints Gastrointestinal: no complaints Exam/Review of Systems Vital Signs Vitals Vital Signs Date Time Temp Pulse Resp B/P Pulse Ox O2 Delivery O2 Flow Rate FiO2 09/22/16 16:00 73 09/22/16 15:04 98.0 18 134/75 95 09/22/16 00:00 Room Air 09/20/16 09:00 2.0 Intake and Output 09/21/16 09/21/16 09/22/16 15:00 23:00 07:00 Intake Total 500 ml 840 ml 750 ml Output Total 2000 ml 125 ml Balance -1500 ml 840 ml 625 ml Exam Respiratory: clear to auscultation Cardiovascular: regular rate and rhythm Gastrointestinal: soft Musculoskeletal: nl extremities to inspection Extremities: normal pulses Results Result Diagram: 09/21/16 0603 09/21/16 0602 Medications Medications Current Medications Ondansetron HCl (Zofran Inj) 4 mg Q6H PRN IV NAUSEA AND/OR VOMITING Last administered on 09/19/16 00:45; Admin Dose 4 MG; Start 09/16/16 at 09:00 Docusate Sodium (Colace) 100 mg Q12H PRN PO CONSTIPATION; Start 09/16/16 at 09: 00 Pantoprazole (Protonix Iv) 40 mg DAILY@06 IV Last administered on 09/22/16 05: 22; Admin Dose 40 MG; Start 09/17/16 at 06:00 Hydralazine HCl (Apresoline) 10 mg Q6H PRN IV sbp >170 Last administered on 12:03; Admin Dose 10 MG; Start 09/16/16 at 17:00 Guaifenesin/ Codeine Phosphate (Robitussin Ac Liquid Cup) 5 ml Q8H PRN PO cough Last administered on 09/18/16 05:10; Admin Dose 5 ML; Start 09/18/16 at 05:00 Nitroglycerin (Nitroglycerin (Sl Tab) 0.4 Mg) 1 tab Q5M PRN SL ANGINA Last administered on 09/18/16 21:54; Admin Dose 1 TAB; Start 09/18/16 at 10:30 Morphine Sulfate (morphine) 2 mg Q4H PRN IV PAIN 5-10 Last administered on 09/18 12:47; Admin Dose 2 MG; Start 09/18/16 at 13:00 Carvedilol (Coreg) 6.25 mg BID PO Last administered on 09/22/16 08:09; Admin Dose 6.25 MG; Start 09/19/16 at 21:00 Hydralazine HCl (Apresoline) 50 mg Q8 PO Last administered on 09/22/16 13:36; Admin Dose 50 MG; Start 09/19/16 at 14:00 Aspirin (Aspirin) 325 mg DAILY PO Last administered on 09/22/16 08:08; Admin Dose 325 MG; Start 09/19/16 at 13:00 Heparin Sodium (Porcine) (Heparin (5000 Units/0.5 ml)) 5,000 unit Q8 SC Last administered on 09/22/16 13:38; Admin Dose 5,000 UNIT; Start 09/19/16 at 14:00 Epoetin Cj (Epogen (Esrd)) 6,000 units MoWeFr@17 SC ; Start 09/23/16 at 17:00 Clobetasol Propionate (Temovate 0.05% Cr) 1 applic BID TOP Last administered on 09/22/16 08:09; Admin Dose 1 APPLIC; Start 09/21/16 at 21:00 LUCAS WAHL MD Sep 22, 2016 16:34
[2016-09-23] VITALS (26 sets, daily range): BP systolic 107–155; BP diastolic 65–85; PULSE 67–80; RESP 13–19
[2016-09-23] MEDS: HEPARIN 5,000 UNIT/0.5 ML SYG SC SCH ×3 (05:19→21:59)
[2016-09-23] MEDS: PANTOPRAZOLE (EC) 40 MG TAB PO SCH (05:24)
[2016-09-23] MEDS: FUROSEMIDE 40 MG INJ IV SCH ×2 (05:24→18:07)
[2016-09-23 06:46] LABS: ALBUMIN 3.2 g/dl (3.3-4.9)
[2016-09-23 06:47] LABS: POTASSIUM 4.3 mmol/L (3.5-5.1)
[2016-09-23 06:49] LABS: ALBUMIN/GLOBULIN RATIO 0.94; CREATININE 9.1 mg/dl (0.61-1.24); PHOSPHORUS 7.8 mg/dl (2.5-4.9); TOTAL PROTEIN 6.6 g/dl (6.1-8.1)
[2016-09-23] MEDS: ASPIRIN 325 MG TAB PO SCH (09:00)
[2016-09-23] MEDS: FOLIC ACID 1 MG TAB PO SCH (09:05)
[2016-09-23] MEDS: CLOBETASOL 0.05% 15 GM CR TOP SCH ×2 (09:06→21:54)
[2016-09-23] MEDS: MULTIVIT/CA CARB/B CMPLX/FA TAB PO SCH (09:06)
[2016-09-23] MEDS ORDERED: HEPARIN 1000 UNITS/ML 10 ML INJ ONE (09:37)
[2016-09-23] MEDS ORDERED: NITROGLYCERIN (IC) 100 MCG/ML INJ ONE (09:38)
[2016-09-23] MEDS ORDERED: IODIXANOL LOCM 100 ML BTL ONE (09:38)
[2016-09-23] MEDS ORDERED: FENTAnyl 50 MCG/ML VIAL ONE (09:38)
[2016-09-23] MEDS ORDERED: LIDOCAINE 1% (MDV) 20 ML INJ ONE (09:38)
[2016-09-23] MEDS ORDERED: MIDAZOLAM 1 MG/ML 2 ML INJ ONE (09:38)
[2016-09-23] MEDS ORDERED: VERAPAMIL 5 MG INJ ONE (09:39)
--- NOTE | 2016-09-23 10:50 | CONS ---
Date/Time of Note Date/Time of Note DATE: 09/23/16 TIME: 10:46 Assessment/Plan Assessment/Plan Chief Complaint/Hosp Course IMp: 1.CHF-Diastolic acute. Echo 08/2016 with EF 50%/mod MR 2.HTN 3.CKD stage IV-not on HD asof yet 4.Chest pain 5.SOB-secondary to CHF/volume overload 6.Nstemi-with decreasing enzymes and no chest pain currently Rec: -tele -Trend cardiac enzymes -Continue BB/hydralazine and f/u BP -Continue asa -HD today -[facility] today Problems: Consultation Date/Type/Reason Admit Date/Time Sep 16, 2016 at 03:23 Initial Consult Date 09/17/2016 Type of Consultation: Cardiology Reason for Consultation Nstemi Referring Provider: LUCAS WAHL MD Exam/Review of Systems Vital Signs Vitals Vital Signs Date Time Temp Pulse Resp B/P Pulse Ox O2 Delivery O2 Flow Rate FiO2 09/23/16 08:11 79 09/23/16 07:01 98.7 18 126/74 98 09/22/16 00:00 Room Air 09/20/16 09:00 2.0 Intake and Output 09/22/16 09/22/16 09/23/16 15:00 23:00 07:00 Intake Total 600 ml Balance 600 ml Exam Review of Systems: CONSTITUTIONAL: No fevers, chills. PULMONARY: mild sob CARDIOVASCULAR: No chest pain/palpitations GASTROINTESTINAL: No nausea/vomiting. GENITOURINARY: No hematuria/dysuria. MUSCULOSKELETAL: No myagias/arthalgias. PSYCHIATRIC: The patient denies depression. NEUROLOGIC: No weakness Constitutional: alert, oriented Psych: no complaints Head: normocephalic ENMT: mucosa pink and moist Neck: jvd (9 cm water), supple Respiratory: clear to auscultation Cardiovascular: regular rate and rhythm Gastrointestinal: non-tender, soft Musculoskeletal: muscle tone (normal) Extremities: edema (trace/B) Neurological: other (Nop focal deficits) Results Result Diagram: 09/21/16 0603 09/23/16 0530 Results 24 hrs Laboratory Tests Test 09/23/16 05:30 Sodium Level 130 L Potassium Level 4.3 Chloride Level 90 L Carbon Dioxide Level 27 Anion Gap 17 H Blood Urea Nitrogen 50 H Creatinine 9.10 H Glucose Level 102 Calcium Level 7.0 L Phosphorus Level 7.8 H Total Bilirubin 0.0 L Direct Bilirubin 0.00 Indirect Bilirubin 0.0 Aspartate Amino Transf (AST/SGOT) 34 Alanine Aminotransferase (ALT/SGPT) 22 Alkaline Phosphatase 97 Total Protein 6.6 Albumin 3.2 L Globulin 3.40 H Albumin/Globulin Ratio 0.94 Medications Medications Current Medications Ondansetron HCl (Zofran Inj) 4 mg Q6H PRN IV NAUSEA AND/OR VOMITING Last administered on 09/19/16 00:45; Admin Dose 4 MG; Start 09/16/16 at 09:00 Docusate Sodium (Colace) 100 mg Q12H PRN PO CONSTIPATION; Start 09/16/16 at 09: 00 Hydralazine HCl (Apresoline) 10 mg Q6H PRN IV sbp >170 Last administered on 12:03; Admin Dose 10 MG; Start 09/16/16 at 17:00 Guaifenesin/ Codeine Phosphate (Robitussin Ac Liquid Cup) 5 ml Q8H PRN PO cough Last administered on 09/18/16 05:10; Admin Dose 5 ML; Start 09/18/16 at 05:00 Nitroglycerin (Nitroglycerin (Sl Tab) 0.4 Mg) 1 tab Q5M PRN SL ANGINA Last administered on 09/18/16 21:54; Admin Dose 1 TAB; Start 09/18/16 at 10:30 Morphine Sulfate (morphine) 2 mg Q4H PRN IV PAIN 5-10 Last administered on 09/18 12:47; Admin Dose 2 MG; Start 09/18/16 at 13:00 Carvedilol (Coreg) 6.25 mg BID PO Last administered on 09/23/16 09:05; Admin Dose 6.25 MG; Start 09/19/16 at 21:00 Hydralazine HCl (Apresoline) 50 mg Q8 PO Last administered on 09/23/16 05:24; Admin Dose 50 MG; Start 09/19/16 at 14:00 Aspirin (Aspirin) 325 mg DAILY PO Last administered on 09/22/16 08:08; Admin Dose 325 MG; Start 09/19/16 at 13:00 Heparin Sodium (Porcine) (Heparin (5000 Units/0.5 ml)) 5,000 unit Q8 SC Last administered on 09/22/16 20:52; Admin Dose 5,000 UNIT; Start 09/19/16 at 14:00 Epoetin Cj (Epogen (Esrd)) 6,000 units MoWeFr@17 SC ; Start 09/23/16 at 17:00 Clobetasol Propionate (Temovate 0.05% Cr) 1 applic BID TOP Last administered on 09/23/16 09:06; Admin Dose 1 APPLIC; Start 09/21/16 at 21:00 Folic Acid (Folic Acid) 1 mg DAILY PO Last administered on 09/23/16 09:05; Admin Dose 1 MG; Start 09/23/16 at 09:00 Multivit/Ca Carb/ B Cmplx/FA/Prenat (Luisa-Melissa) 1 tab DAILY PO Last administered on 09/23/16 09:06; Admin Dose 1 TAB; Start 09/23/16 at 09:00 Pantoprazole (Protonix Tab) 40 mg DAILY@06 PO Last administered on 09/23/16 05 :24; Admin Dose 40 MG; Start 09/23/16 at 06:00 MATEO HODGSON Sep 23, 2016 10:50
[2016-09-23] MEDS ORDERED: ONDANSETRON 4 MG INJ IV PRN (11:30)
[2016-09-23] MEDS ORDERED: ACETAMINOPHEN 325 MG TAB PO PRN (11:30)
[2016-09-23] MEDS ORDERED: HOLD all METFORMIN and METFORMIN CONTAINING medications for 48 hours post procedure. Chec XX ONE (11:30)
[2016-09-23] MEDS ORDERED: morphine 2 MG INJ IV PRN (11:30)
[2016-09-23] MEDS ORDERED: AL HYDROX/MG HYDROX/SIMETH 30 ML CUP PO PRN (11:30)
--- NOTE | 2016-09-23 11:36 | CARRPT ---
DATE OF PROCEDURE: 09/23/2016 TYPE OF PROCEDURE: 1. Left heart catheterization. 2. Coronary angiography. 3. Measurement of left ventricular end diastolic pressure. ATTENDING PHYSICIAN: Dr. Mateo Mahoney REFERRING PHYSICIAN: Dr. Jossue Wahl INDICATION: Non-ST elevation myocardial infarction. TYPE OF ANESTHESIA: Conscious and local. BRIEF HISTORY AND HOSPITAL COURSE: Mr. Medina is a 51-year-old male with history of hypertension, dy slipidemia, end-stage renal disease, recently started on hemodialysis who initially presented with c omplaints of substernal chest pain and ruled in for non-ST elevation myocardial infarction. The pat ient was placed on medical therapy and has now been brought to the cardiac bolt labeler in order to asse ss for the possibility of significant obstructive coronary artery disease lending to symptoms of kelly st pain and subsequent non-ST elevation myocardial infarction. PROCEDURE: After informed consent was obtained, the patient was brought to the [facility] cardiac catheterization lab where his right radial area was prepped and draped in the usual fashion. Lidocaine 2% was infiltrated into radial area in order to achieve adequate local anesthes ia. Using modified Seldinger technique, the right radial artery was cannulated and a 6-Barbadian arter ial was placed. A 6-Barbadian JL3.5 catheter was used to cannulate the left main coronary ostium. Thi s proved unsuccessful and exchanged for a JL3 was used to successfully cannulate the left main coron telma ostium. With contrast injection, multiple views of the left coronary arterial system were obtai elizabeth with removal over a guidewire and JR4 was used to cannulate the right coronary arterial ostium. With contrast injection, multiple views of the right coronary arterial system obtained. JR4 was th en additionally used across the LV and left ventricular end-diastolic pressure was measured and pull back pulled back across the aortic valve to assess for significant gradient, which was removed . Subsequently, at this time, this completed the procedure. The patient's sheath was removed. TR band was applied. There were no noted complications. FINDINGS: Coronary angiography. Right coronary artery proximally is a 2.5 mm vessel in its midportion has a 2 0% stenosis. The remainder of the right coronary artery is free of significant focal stenoses. It is a dominant vessel and gives off a 2 mm PDA with no significant focal stenoses and a 2.5 mm medical information specialist olateral branch with no significant focal stenoses. The patient's left main 4.5 mm with no signific ant stenoses. LAD proximally is a 3 mm vessel and has an ostial 20% to 30% stenosis. And in the mi d portion of the LAD, there is again another focal 20% stenosis and the LAD wraps all around the ape x. There is a proximal branching diagonal 2 mm with an ostial 40 to 50% stenosis. The circumflex p roximally is a 3 mm vessel and has a 20% stenosis in its mid portion. The circ continuation AV groo ve is free of significant focal stenoses, is mid branching obtuse marginal 3 mm with luminal irregul arities of 10 to 20%. Left ventricular end diastolic pressure of 14. No significant aortic stenosis by gradient. TOTAL FLUOROSCOPY TIME: 5.8 minutes. TOTAL CONTRAST: 60 mL. IMPRESSION: 1. Mild nonobstructive coronary artery disease. 2. Normal left heart filling pressures. 3. No significant aortic stenosis by gradient. RECOMMENDATIONS: In light of procedure and findings at this time would: 1. Maximize medical management. 2. Aggressive risk factor reduction. 3. The patient to be readmitted to telemetry floor for post-catheterization observation and continu ed management of symptoms. Dictated By: MATEO CRUZ/GUSTAVO Conf#: [id number] DID#: [id number] CC: JOSSUE WAHL MD;*EndCC*
[2016-09-23 14:42] LABS: ADD SCAN DIFF NO
[2016-09-23 14:45] LABS: BASOPHILS % 0.2 % (0.0-2.0); EOSINOPHILS # 0.3 10^3/ul (0.0-0.5); EOSINOPHILS % 3.3 % (0.0-7.0); HEMATOCRIT 26.7 % (42.0-52.0); HEMOGLOBIN 8.5 g/dl (14.0-18.0); LYMPHOCYTES # 1.6 10^3/ul (0.8-2.9); MEAN CORPUSCULAR HEMOGLOBIN 29.4 pg (29.0-33.0); MEAN CORPUSCULAR HGB CONC 31.8 g/dl (32.0-37.0); MEAN CORPUSCULAR VOLUME 92.4 fl (82.0-101.0); MEAN PLATELET VOLUME 9.7 fl (7.4-10.4); MONOCYTE # 0.7 10^3/ul (0.3-0.9); MONOCYTES % 8.5 % (0.0-11.0); NEUTROPHIL # 5.7 10^3/ul (1.6-7.5); NEUTROPHILS % 67.9 % (39.0-77.0); PLATELET COUNT 319 10^3/UL (140-415); RED BLOOD COUNT 2.89 10^6/ul (4.70-6.10); RED CELL DISTRIBUTION WIDTH 13.4 % (11.5-14.5); WHITE BLOOD COUNT 8.4 10^3/ul (4.8-10.8)
[2016-09-23] MEDS ORDERED: EPOETIN 3000 UNITS/1 ML INJ (ESRD) SC SCH (17:00)
[2016-09-23] MEDS: EPOETIN 3000 UNITS/1 ML INJ (ESRD) SC SCH (18:06)
--- NOTE | 2016-09-23 18:41 | PN ---
Date/Time of Note Date/Time of Note DATE: 09/23/16 TIME: 18:40 Assessment/Plan VTE Prophylaxis VTE Prophylaxis Intervention: other Lines/Catheters IV [facility] Type (from [facility]): Peripheral IV Urinary Cath still in place: No Assessment/Plan Chief Complaint/Hosp Course IMPRESSION: 1. Chronic kidney disease V,on hd 2. Metabolic acidosis. better 3. Leukocytosis.better 4. Hypertension. 5. Uremia. 6. Pulmonary edema.BETTER 7 s/p cath no pci plan hd Problems: Subjective 24 Hr Interval Summary Subjective hx not possible: other Cardiovascular: no complaints Gastrointestinal: no complaints Genitourinary: no complaints Exam/Review of Systems Vital Signs Vitals Vital Signs Date Time Temp Pulse Resp B/P Pulse Ox O2 Delivery O2 Flow Rate FiO2 09/23/16 17:00 77 09/23/16 15:38 97.7 18 137/78 99 09/23/16 12:02 Room Air 09/20/16 09:00 2.0 Intake and Output 09/22/16 09/22/16 09/23/16 15:00 23:00 07:00 Intake Total 600 ml Balance 600 ml Exam Neck: supple Respiratory: clear to auscultation Cardiovascular: regular rate and rhythm Gastrointestinal: soft Musculoskeletal: nl extremities to inspection Extremities: normal pulses Results Result Diagram: 09/23/16 1405 09/23/16 0530 Results 24 hrs Laboratory Tests Test 09/23/16 05:30 09/23/16 14:05 Sodium Level 130 L Potassium Level 4.3 Chloride Level 90 L Carbon Dioxide Level 27 Anion Gap 17 H Blood Urea Nitrogen 50 H Creatinine 9.10 H Glucose Level 102 Calcium Level 7.0 L Phosphorus Level 7.8 H Total Bilirubin 0.0 L Direct Bilirubin 0.00 Indirect Bilirubin 0.0 Aspartate Amino Transf (AST/SGOT) 34 Alanine Aminotransferase (ALT/SGPT) 22 Alkaline Phosphatase 97 Total Protein 6.6 Albumin 3.2 L Globulin 3.40 H Albumin/Globulin Ratio 0.94 White Blood Count 8.4 Red Blood Count 2.89 L Hemoglobin 8.5 L Hematocrit 26.7 L Mean Corpuscular Volume 92.4 Mean Corpuscular Hemoglobin 29.4 Mean Corpuscular Hemoglobin Concent 31.8 L Red Cell Distribution Width 13.4 Platelet Count 319 Mean Platelet Volume 9.7 Neutrophils % 67.9 Lymphocytes % 19.0 Monocytes % 8.5 Eosinophils % 3.3 Basophils % 0.2 Nucleated Red Blood Cells % 0.0 Neutrophils # 5.7 Lymphocytes # 1.6 Monocytes # 0.7 Eosinophils # 0.3 Basophils # 0.0 Nucleated Red Blood Cells # 0.0 Medications Medications Current Medications Docusate Sodium (Colace) 100 mg Q12H PRN PO CONSTIPATION; Start 09/16/16 at 09: 00 Hydralazine HCl (Apresoline) 10 mg Q6H PRN IV sbp >170 Last administered on 12:03; Admin Dose 10 MG; Start 09/16/16 at 17:00 Guaifenesin/ Codeine Phosphate (Robitussin Ac Liquid Cup) 5 ml Q8H PRN PO cough Last administered on 09/18/16 05:10; Admin Dose 5 ML; Start 09/18/16 at 05:00 Nitroglycerin (Nitroglycerin (Sl Tab) 0.4 Mg) 1 tab Q5M PRN SL ANGINA Last administered on 09/18/16 21:54; Admin Dose 1 TAB; Start 09/18/16 at 10:30 Carvedilol (Coreg) 6.25 mg BID PO Last administered on 09/23/16 09:05; Admin Dose 6.25 MG; Start 09/19/16 at 21:00 Hydralazine HCl (Apresoline) 50 mg Q8 PO Last administered on 09/23/16 14:08; Admin Dose 50 MG; Start 09/19/16 at 14:00 Aspirin (Aspirin) 325 mg DAILY PO Last administered on 09/22/16 08:08; Admin Dose 325 MG; Start 09/19/16 at 13:00 Heparin Sodium (Porcine) (Heparin (5000 Units/0.5 ml)) 5,000 unit Q8 SC Last administered on 09/22/16 20:52; Admin Dose 5,000 UNIT; Start 09/19/16 at 14:00 Epoetin Cj (Epogen (Esrd)) 6,000 units MoWeFr@17 SC Last administered on 09/23 18:06; Admin Dose 6,000 UNITS; Start 09/23/16 at 17:00 Clobetasol Propionate (Temovate 0.05% Cr) 1 applic BID TOP Last administered on 09/23/16 09:06; Admin Dose 1 APPLIC; Start 09/21/16 at 21:00 Folic Acid (Folic Acid) 1 mg DAILY PO Last administered on 09/23/16 09:05; Admin Dose 1 MG; Start 09/23/16 at 09:00 Multivit/Ca Carb/ B Cmplx/FA/Prenat (Luisa-Melissa) 1 tab DAILY PO Last administered on 09/23/16 09:06; Admin Dose 1 TAB; Start 09/23/16 at 09:00 Pantoprazole (Protonix Tab) 40 mg DAILY@06 PO Last administered on 09/23/16 05 :24; Admin Dose 40 MG; Start 09/23/16 at 06:00 Acetaminophen (Tylenol Tab) 650 mg Q4H PRN PO NON-CARDIAC PAIN LEVEL (1-3); Start 09/23/16 at 11:30 Morphine Sulfate (morphine) 2 mg Q2H PRN IV FOR NON CARDIAC PAIN (4-10); Start 09/23/16 at 11:30 Al Hydrox/Mg Hydrox/Simethicone (Mag-Al Plus) 30 ml Q4H PRN PO GASTROINTESTINAL UPSET; Start 09/23/16 at 11:30 Ondansetron HCl (Zofran Inj) 4 mg Q4H PRN IV NAUSEA AND/OR VOMITING; Start at 11:30 LUCAS WAHL MD Sep 23, 2016 18:41
--- NOTE | 2016-09-23 19:55 | CONS ---
Date/Time of Note Date/Time of Note DATE: 09/23/16 TIME: 19:54 Assessment/Plan Assessment/Plan Additional Assessment/Plan Additional Assessment/Plan IMPRESSION: 1. Retrosternal discomfort.resolved 2. Gastroesophageal reflux disease.better 3. Renal failure. 4. Congestive heart failure. 5. End-stage renal disease. 6. Hypertension. 7. Non-ST elevation myocardial infarction. Plan continue present care Patient should continue Protonix for next 6-8 weeks Consultation Date/Type/Reason Admit Date/Time Sep 16, 2016 at 03:23 Type of Consultation: Cardiology Referring Provider: LUCAS WAHL MD 24 HR Interval Summary Constitutional: improved, no complaints Exam/Review of Systems Vital Signs Vitals Vital Signs Date Time Temp Pulse Resp B/P Pulse Ox O2 Delivery O2 Flow Rate FiO2 09/23/16 17:00 77 09/23/16 15:38 97.7 18 137/78 99 09/23/16 12:02 Room Air 09/20/16 09:00 2.0 Intake and Output 09/22/16 09/22/16 09/23/16 15:00 23:00 07:00 Intake Total 600 ml Balance 600 ml Exam Constitutional: alert, oriented, well developed Psych: nl mood/affect, no complaints Head: atraumatic, normocephalic Eyes: EOMI, PERRL, nl conjunctiva, nl lids, nl sclera ENMT: nl external ears & nose, nl lips & teeth, nl nasal mucosa & septum Neck: non-tender, supple Respiratory: clear to auscultation, normal air movement Cardiovascular: nl pulses, regular rate and rhythm Gastrointestinal: nl liver, spleen, non-tender, soft Musculoskeletal: nl extremities to inspection, nl gait and stance Extremities: normal pulses Neurological: [employer] II-XII intact, nl mental status, nl speech, nl strength Skin: nl turgor, No rash or lesions Lymph: nl lymph nodes Results Result Diagram: 09/23/16 1405 09/23/16 0530 Results 24 hrs Laboratory Tests Test 09/23/16 05:30 09/23/16 14:05 Sodium Level 130 L Potassium Level 4.3 Chloride Level 90 L Carbon Dioxide Level 27 Anion Gap 17 H Blood Urea Nitrogen 50 H Creatinine 9.10 H Glucose Level 102 Calcium Level 7.0 L Phosphorus Level 7.8 H Total Bilirubin 0.0 L Direct Bilirubin 0.00 Indirect Bilirubin 0.0 Aspartate Amino Transf (AST/SGOT) 34 Alanine Aminotransferase (ALT/SGPT) 22 Alkaline Phosphatase 97 Total Protein 6.6 Albumin 3.2 L Globulin 3.40 H Albumin/Globulin Ratio 0.94 White Blood Count 8.4 Red Blood Count 2.89 L Hemoglobin 8.5 L Hematocrit 26.7 L Mean Corpuscular Volume 92.4 Mean Corpuscular Hemoglobin 29.4 Mean Corpuscular Hemoglobin Concent 31.8 L Red Cell Distribution Width 13.4 Platelet Count 319 Mean Platelet Volume 9.7 Neutrophils % 67.9 Lymphocytes % 19.0 Monocytes % 8.5 Eosinophils % 3.3 Basophils % 0.2 Nucleated Red Blood Cells % 0.0 Neutrophils # 5.7 Lymphocytes # 1.6 Monocytes # 0.7 Eosinophils # 0.3 Basophils # 0.0 Nucleated Red Blood Cells # 0.0 Medications Medications Current Medications Docusate Sodium (Colace) 100 mg Q12H PRN PO CONSTIPATION; Start 09/16/16 at 09: 00 Hydralazine HCl (Apresoline) 10 mg Q6H PRN IV sbp >170 Last administered on 12:03; Admin Dose 10 MG; Start 09/16/16 at 17:00 Guaifenesin/ Codeine Phosphate (Robitussin Ac Liquid Cup) 5 ml Q8H PRN PO cough Last administered on 09/18/16 05:10; Admin Dose 5 ML; Start 09/18/16 at 05:00 Nitroglycerin (Nitroglycerin (Sl Tab) 0.4 Mg) 1 tab Q5M PRN SL ANGINA Last administered on 09/18/16 21:54; Admin Dose 1 TAB; Start 09/18/16 at 10:30 Carvedilol (Coreg) 6.25 mg BID PO Last administered on 09/23/16 09:05; Admin Dose 6.25 MG; Start 09/19/16 at 21:00 Hydralazine HCl (Apresoline) 50 mg Q8 PO Last administered on 09/23/16 14:08; Admin Dose 50 MG; Start 09/19/16 at 14:00 Aspirin (Aspirin) 325 mg DAILY PO Last administered on 09/22/16 08:08; Admin Dose 325 MG; Start 09/19/16 at 13:00 Heparin Sodium (Porcine) (Heparin (5000 Units/0.5 ml)) 5,000 unit Q8 SC Last administered on 09/22/16 20:52; Admin Dose 5,000 UNIT; Start 09/19/16 at 14:00 Epoetin Cj (Epogen (Esrd)) 6,000 units MoWeFr@17 SC Last administered on 09/23 18:06; Admin Dose 6,000 UNITS; Start 09/23/16 at 17:00 Clobetasol Propionate (Temovate 0.05% Cr) 1 applic BID TOP Last administered on 09/23/16 09:06; Admin Dose 1 APPLIC; Start 09/21/16 at 21:00 Folic Acid (Folic Acid) 1 mg DAILY PO Last administered on 09/23/16 09:05; Admin Dose 1 MG; Start 09/23/16 at 09:00 Multivit/Ca Carb/ B Cmplx/FA/Prenat (Luisa-Melissa) 1 tab DAILY PO Last administered on 09/23/16 09:06; Admin Dose 1 TAB; Start 09/23/16 at 09:00 Pantoprazole (Protonix Tab) 40 mg DAILY@06 PO Last administered on 09/23/16 05 :24; Admin Dose 40 MG; Start 09/23/16 at 06:00 Acetaminophen (Tylenol Tab) 650 mg Q4H PRN PO NON-CARDIAC PAIN LEVEL (1-3); Start 09/23/16 at 11:30 Morphine Sulfate (morphine) 2 mg Q2H PRN IV FOR NON CARDIAC PAIN (4-10); Start 09/23/16 at 11:30 Al Hydrox/Mg Hydrox/Simethicone (Mag-Al Plus) 30 ml Q4H PRN PO GASTROINTESTINAL UPSET; Start 09/23/16 at 11:30 Ondansetron HCl (Zofran Inj) 4 mg Q4H PRN IV NAUSEA AND/OR VOMITING; Start at 11:30 JUAN PARRA MD Sep 23, 2016 19:54
[2016-09-24] VITALS (12 sets, daily range): BP systolic 118–170; BP diastolic 70–86; PULSE 61–72; RESP 18–20
[2016-09-24] MEDS: FUROSEMIDE 40 MG INJ IV SCH ×2 (06:36→18:53)
[2016-09-24] MEDS: PANTOPRAZOLE (EC) 40 MG TAB PO SCH (06:36)
[2016-09-24] MEDS: HEPARIN 5,000 UNIT/0.5 ML SYG SC SCH ×3 (06:51→21:34)
--- NOTE | 2016-09-24 09:27 | CONS ---
Date/Time of Note Date/Time of Note DATE: 09/24/16 TIME: 09:25 Assessment/Plan Assessment/Plan Additional Assessment/Plan 1.CHF-Diastolic acute. Echo 08/2016 with EF 50%/mod MR - better fluid satus now 2.HTN- well Rx 3.CKD stage IV-not on HD as of yet - renal team follows 4.Chest pain - s/p C with Dr. Mahoney - non-obstructive dz noted - mEd rx advised 5.SOB-secondary to CHF/volume overload - remove fluid as tolerated 6.Nstemi-with decreasing enzymes and no chest pain currently- [facility] without obstructive dz Consultation Date/Type/Reason Admit Date/Time Sep 16, 2016 at 03:23 Initial Consult Date Type of Consultation: Cardiology Referring Provider: LUCAS WAHL MD 24 HR Interval Summary Free Text/Dictation No acute change - no ectopy on etle - s/p C with Dr. Mahoney - non- obstructive dz noted - mEd rx advised ROS: No fever, no chills, no nausea, no vomiting, no diarrhea/constipation No recent weight changes No chest pain, no PND, no orthopnea No dizziness, blurred vision No thirst, no heat or cold intolerance Exam/Review of Systems Vital Signs Vitals Vital Signs Date Time Temp Pulse Resp B/P Pulse Ox O2 Delivery O2 Flow Rate FiO2 09/24/16 08:03 71 09/24/16 07:20 98.0 18 118/73 99 09/23/16 12:02 Room Air 09/20/16 09:00 2.0 Intake and Output 09/23/16 09/23/16 09/24/16 14:59 22:59 06:59 Intake Total 360 ml 750 ml 250 ml Output Total 1500 ml Balance 360 ml -750 ml 250 ml Exam General: WN/WD/NAD, AOx 3 HEENT: Unicetric/atraumatic/EOMI (follow commands) NECK: JVD elevated, no thyromegaly Lymph: no lymphadenopathy HEART: regular with no S3, II/ systolic murmur at apex LUNGS: Coarse sounds ABD: soft, NT, ND, +BS : Intact Neuro: non focal SKIN: chronic changes EXT: trace edema Results Result Diagram: 09/23/16 1405 09/23/16 0530 Results 24 hrs Laboratory Tests Test 09/23/16 14:05 White Blood Count 8.4 Red Blood Count 2.89 L Hemoglobin 8.5 L Hematocrit 26.7 L Mean Corpuscular Volume 92.4 Mean Corpuscular Hemoglobin 29.4 Mean Corpuscular Hemoglobin Concent 31.8 L Red Cell Distribution Width 13.4 Platelet Count 319 Mean Platelet Volume 9.7 Neutrophils % 67.9 Lymphocytes % 19.0 Monocytes % 8.5 Eosinophils % 3.3 Basophils % 0.2 Nucleated Red Blood Cells % 0.0 Neutrophils # 5.7 Lymphocytes # 1.6 Monocytes # 0.7 Eosinophils # 0.3 Basophils # 0.0 Nucleated Red Blood Cells # 0.0 Medications Medications Current Medications Docusate Sodium (Colace) 100 mg Q12H PRN PO CONSTIPATION; Start 09/16/16 at 09: 00 Hydralazine HCl (Apresoline) 10 mg Q6H PRN IV sbp >170 Last administered on 12:03; Admin Dose 10 MG; Start 09/16/16 at 17:00 Guaifenesin/ Codeine Phosphate (Robitussin Ac Liquid Cup) 5 ml Q8H PRN PO cough Last administered on 09/18/16 05:10; Admin Dose 5 ML; Start 09/18/16 at 05:00 Nitroglycerin (Nitroglycerin (Sl Tab) 0.4 Mg) 1 tab Q5M PRN SL ANGINA Last administered on 09/18/16 21:54; Admin Dose 1 TAB; Start 09/18/16 at 10:30 Carvedilol (Coreg) 6.25 mg BID PO Last administered on 09/23/16 21:54; Admin Dose 6.25 MG; Start 09/19/16 at 21:00 Hydralazine HCl (Apresoline) 50 mg Q8 PO Last administered on 09/24/16 06:36; Admin Dose 50 MG; Start 09/19/16 at 14:00 Aspirin (Aspirin) 325 mg DAILY PO Last administered on 09/22/16 08:08; Admin Dose 325 MG; Start 09/19/16 at 13:00 Heparin Sodium (Porcine) (Heparin (5000 Units/0.5 ml)) 5,000 unit Q8 SC Last administered on 09/24/16 06:51; Admin Dose 5,000 UNIT; Start 09/19/16 at 14:00 Epoetin Cj (Epogen (Esrd)) 6,000 units MoWeFr@17 SC Last administered on 09/23 18:06; Admin Dose 6,000 UNITS; Start 09/23/16 at 17:00 Clobetasol Propionate (Temovate 0.05% Cr) 1 applic BID TOP Last administered on 09/23/16 21:54; Admin Dose 1 APPLIC; Start 09/21/16 at 21:00 Folic Acid (Folic Acid) 1 mg DAILY PO Last administered on 09/23/16 09:05; Admin Dose 1 MG; Start 09/23/16 at 09:00 Multivit/Ca Carb/ B Cmplx/FA/Prenat (Luisa-Melissa) 1 tab DAILY PO Last administered on 09/23/16 09:06; Admin Dose 1 TAB; Start 09/23/16 at 09:00 Pantoprazole (Protonix Tab) 40 mg DAILY@06 PO Last administered on 09/24/16 06 :36; Admin Dose 40 MG; Start 09/23/16 at 06:00 Acetaminophen (Tylenol Tab) 650 mg Q4H PRN PO NON-CARDIAC PAIN LEVEL (1-3); Start 09/23/16 at 11:30 Morphine Sulfate (morphine) 2 mg Q2H PRN IV FOR NON CARDIAC PAIN (4-10); Start 09/23/16 at 11:30 Al Hydrox/Mg Hydrox/Simethicone (Mag-Al Plus) 30 ml Q4H PRN PO GASTROINTESTINAL UPSET; Start 09/23/16 at 11:30 Ondansetron HCl (Zofran Inj) 4 mg Q4H PRN IV NAUSEA AND/OR VOMITING; Start at 11:30 CECELIA MONTESINOS MD Sep 24, 2016 09:27
[2016-09-24] MEDS: MULTIVIT/CA CARB/B CMPLX/FA TAB PO SCH (09:33)
[2016-09-24] MEDS: FOLIC ACID 1 MG TAB PO SCH (09:33)
[2016-09-24] MEDS: CLOBETASOL 0.05% 15 GM CR TOP SCH ×2 (09:33→21:00)
[2016-09-24] MEDS: ASPIRIN 325 MG TAB PO SCH (09:33)
--- NOTE | 2016-09-24 18:39 | PN ---
Date/Time of Note Date/Time of Note DATE: 09/24/16 TIME: 18:37 Assessment/Plan VTE Prophylaxis VTE Prophylaxis Intervention: other Lines/Catheters IV [facility]from [facility] [place] Urinary Cath still in place: No Assessment/Plan Chief Complaint/Hosp Course IMPRESSION: 1. Chronic kidney disease V,on hd 2. Metabolic acidosis. better 3. Leukocytosis.better 4. Hypertension. 5. Uremia. 6. Pulmonary edema.BETTER 7 s/p cath no pci plan hd waiting for hd center Problems: Subjective 24 Hr Interval Summary Cardiovascular: no complaints Gastrointestinal: no complaints Exam/Review of Systems Vital Signs Vitals Vital Signs Date Time Temp Pulse Resp B/P Pulse Ox O2 Delivery O2 Flow Rate FiO2 09/24/16 16:01 66 09/24/16 14:58 97.8 18 135/70 99 09/23/16 12:02 Room Air 09/20/16 09:00 2.0 Intake and Output 09/23/16 09/23/16 09/24/16 15:00 23:00 07:00 Intake Total 360 ml 750 ml 250 ml Output Total 1500 ml Balance 360 ml -750 ml 250 ml Exam Respiratory: clear to auscultation Cardiovascular: regular rate and rhythm Gastrointestinal: soft Extremities: normal pulses, No edema Results Result Diagram: 09/23/16 1405 09/23/16 0530 Results 24 hrs Laboratory Tests Test 09/24/16 09:54 Lab Scanned Report REFERENCE LAB Medications Medications Current Medications Docusate Sodium (Colace) 100 mg Q12H PRN PO CONSTIPATION; Start 09/16/16 at 09: 00 Hydralazine HCl (Apresoline) 10 mg Q6H PRN IV sbp >170 Last administered on 12:03; Admin Dose 10 MG; Start 09/16/16 at 17:00 Guaifenesin/ Codeine Phosphate (Robitussin Ac Liquid Cup) 5 ml Q8H PRN PO cough Last administered on 09/18/16 05:10; Admin Dose 5 ML; Start 09/18/16 at 05:00 Nitroglycerin (Nitroglycerin (Sl Tab) 0.4 Mg) 1 tab Q5M PRN SL ANGINA Last administered on 09/18/16 21:54; Admin Dose 1 TAB; Start 09/18/16 at 10:30 Carvedilol (Coreg) 6.25 mg BID PO Last administered on 09/24/16 09:34; Admin Dose 6.25 MG; Start 09/19/16 at 21:00 Hydralazine HCl (Apresoline) 50 mg Q8 PO Last administered on 09/24/16 15:00; Admin Dose 50 MG; Start 09/19/16 at 14:00 Aspirin (Aspirin) 325 mg DAILY PO Last administered on 09/24/16 09:33; Admin Dose 325 MG; Start 09/19/16 at 13:00 Heparin Sodium (Porcine) (Heparin (5000 Units/0.5 ml)) 5,000 unit Q8 SC Last administered on 09/24/16 15:03; Admin Dose 5,000 UNIT; Start 09/19/16 at 14:00 Epoetin Cj (Epogen (Esrd)) 6,000 units MoWeFr@17 SC Last administered on 09/23 18:06; Admin Dose 6,000 UNITS; Start 09/23/16 at 17:00 Clobetasol Propionate (Temovate 0.05% Cr) 1 applic BID TOP Last administered on 09/24/16 09:33; Admin Dose 1 APPLIC; Start 09/21/16 at 21:00 Folic Acid (Folic Acid) 1 mg DAILY PO Last administered on 09/24/16 09:33; Admin Dose 1 MG; Start 09/23/16 at 09:00 Multivit/Ca Carb/ B Cmplx/FA/Prenat (Luisa-Melissa) 1 tab DAILY PO Last administered on 09/24/16 09:33; Admin Dose 1 TAB; Start 09/23/16 at 09:00 Pantoprazole (Protonix Tab) 40 mg DAILY@06 PO Last administered on 09/24/16 06 :36; Admin Dose 40 MG; Start 09/23/16 at 06:00 Acetaminophen (Tylenol Tab) 650 mg Q4H PRN PO NON-CARDIAC PAIN LEVEL (1-3); Start 09/23/16 at 11:30 Morphine Sulfate (morphine) 2 mg Q2H PRN IV FOR NON CARDIAC PAIN (4-10); Start 09/23/16 at 11:30 Al Hydrox/Mg Hydrox/Simethicone (Mag-Al Plus) 30 ml Q4H PRN PO GASTROINTESTINAL UPSET; Start 09/23/16 at 11:30 Ondansetron HCl (Zofran Inj) 4 mg Q4H PRN IV NAUSEA AND/OR VOMITING; Start at 11:30 LUCAS WAHL MD Sep 24, 2016 18:39
--- NOTE | 2016-09-24 22:50 | CONS ---
Date/Time of Note Date/Time of Note DATE: 09/24/16 TIME: 22:50 Assessment/Plan Assessment/Plan Additional Assessment/Plan Additional Assessment/Plan IMPRESSION: 1. Retrosternal discomfort.resolved 2. Gastroesophageal reflux disease.better 3. Renal failure. 4. Congestive heart failure. 5. End-stage renal disease. 6. Hypertension. 7. Non-ST elevation myocardial infarction. Plan continue present care Patient should continue Protonix for next 6-8 weeks Consultation Date/Type/Reason Admit Date/Time Sep 16, 2016 at 03:23 Type of Consultation: Cardiology Referring Provider: LUCAS WAHL MD 24 HR Interval Summary Constitutional: improved, no complaints Exam/Review of Systems Vital Signs Vitals Vital Signs Date Time Temp Pulse Resp B/P Pulse Ox O2 Delivery O2 Flow Rate FiO2 09/24/16 22:36 98.0 72 18 140/72 95 Room Air 09/20/16 09:00 2.0 Intake and Output 09/23/16 09/23/16 09/24/16 14:59 22:59 06:59 Intake Total 360 ml 750 ml 250 ml Output Total 1500 ml Balance 360 ml -750 ml 250 ml Exam Constitutional: alert, oriented, well developed Psych: nl mood/affect, no complaints Head: atraumatic, normocephalic Eyes: EOMI, PERRL, nl conjunctiva, nl lids, nl sclera ENMT: nl external ears & nose, nl lips & teeth, nl nasal mucosa & septum Neck: non-tender, supple Respiratory: clear to auscultation, normal air movement Cardiovascular: nl pulses, regular rate and rhythm Gastrointestinal: nl liver, spleen, non-tender, soft Musculoskeletal: nl extremities to inspection, nl gait and stance Extremities: normal pulses Neurological: WAX PATTERN ASSEMBLER II-XII intact, nl mental status, nl speech, nl strength Skin: nl turgor, No rash or lesions Lymph: nl lymph nodes Results Result Diagram: 09/23/16 1405 09/23/16 0530 Results 24 hrs Laboratory Tests Test 09/24/16 09:54 Lab Scanned Report REFERENCE LAB Medications Medications Current Medications Docusate Sodium (Colace) 100 mg Q12H PRN PO CONSTIPATION; Start 09/16/16 at 09: 00 Hydralazine HCl (Apresoline) 10 mg Q6H PRN IV sbp >170 Last administered on 12:03; Admin Dose 10 MG; Start 09/16/16 at 17:00 Guaifenesin/ Codeine Phosphate (Robitussin Ac Liquid Cup) 5 ml Q8H PRN PO cough Last administered on 09/18/16 05:10; Admin Dose 5 ML; Start 09/18/16 at 05:00 Nitroglycerin (Nitroglycerin (Sl Tab) 0.4 Mg) 1 tab Q5M PRN SL ANGINA Last administered on 09/18/16 21:54; Admin Dose 1 TAB; Start 09/18/16 at 10:30 Carvedilol (Coreg) 6.25 mg BID PO Last administered on 09/24/16 21:33; Admin Dose 6.25 MG; Start 09/19/16 at 21:00 Hydralazine HCl (Apresoline) 50 mg Q8 PO Last administered on 09/24/16 21:34; Admin Dose 50 MG; Start 09/19/16 at 14:00 Aspirin (Aspirin) 325 mg DAILY PO Last administered on 09/24/16 09:33; Admin Dose 325 MG; Start 09/19/16 at 13:00 Heparin Sodium (Porcine) (Heparin (5000 Units/0.5 ml)) 5,000 unit Q8 SC Last administered on 09/24/16 21:34; Admin Dose 5,000 UNIT; Start 09/19/16 at 14:00 Epoetin Cj (Epogen (Esrd)) 6,000 units MoWeFr@17 SC Last administered on 09/23 18:06; Admin Dose 6,000 UNITS; Start 09/23/16 at 17:00 Clobetasol Propionate (Temovate 0.05% Cr) 1 applic BID TOP Last administered on 09/24/16 09:33; Admin Dose 1 APPLIC; Start 09/21/16 at 21:00 Folic Acid (Folic Acid) 1 mg DAILY PO Last administered on 09/24/16 09:33; Admin Dose 1 MG; Start 09/23/16 at 09:00 Multivit/Ca Carb/ B Cmplx/FA/Prenat (Luisa-Melissa) 1 tab DAILY PO Last administered on 09/24/16 09:33; Admin Dose 1 TAB; Start 09/23/16 at 09:00 Pantoprazole (Protonix Tab) 40 mg DAILY@06 PO Last administered on 09/24/16t 06 :36; Admin Dose 40 MG; Start 09/23/16 at 06:00 Acetaminophen (Tylenol Tab) 650 mg Q4H PRN PO NON-CARDIAC PAIN LEVEL (1-3); Start 09/23/16 at 11:30 Morphine Sulfate (morphine) 2 mg Q2H PRN IV FOR NON CARDIAC PAIN (4-10); Start 09/23/16 at 11:30 Al Hydrox/Mg Hydrox/Simethicone (Mag-Al Plus) 30 ml Q4H PRN PO GASTROINTESTINAL UPSET; Start 09/23/16 at 11:30 Ondansetron HCl (Zofran Inj) 4 mg Q4H PRN IV NAUSEA AND/OR VOMITING; Start at 11:30 JUAN PARRA MD Sep 24, 2016 22:50
[2016-09-25] VITALS (11 sets, daily range): BP systolic 121–160; BP diastolic 63–82; PULSE 69–84; RESP 16–22
[2016-09-25] MEDS: PANTOPRAZOLE (EC) 40 MG TAB PO SCH (05:47)
[2016-09-25] MEDS: FUROSEMIDE 40 MG INJ IV SCH ×2 (05:48→17:17)
[2016-09-25] MEDS: HEPARIN 5,000 UNIT/0.5 ML SYG SC SCH ×3 (05:55→21:24)
[2016-09-25] MEDS ORDERED: ALBUMIN HUMAN 25% 50 ML IV PRN (07:00)
[2016-09-25] MEDS: FOLIC ACID 1 MG TAB PO SCH (08:41)
[2016-09-25] MEDS: MULTIVIT/CA CARB/B CMPLX/FA TAB PO SCH (08:41)
[2016-09-25] MEDS: ASPIRIN 325 MG TAB PO SCH (08:41)
[2016-09-25] MEDS: CLOBETASOL 0.05% 15 GM CR TOP SCH ×2 (08:42→21:22)
--- NOTE | 2016-09-25 15:01 | CONS ---
Date/Time of Note Date/Time of Note DATE: 09/25/16 TIME: 14:58 Assessment/Plan Assessment/Plan Chief Complaint/Hosp Course IMp: 1.CHF-Diastolic acute. Echo 08/2016 with EF 50%/mod MR 2.HTN 3.CKD stage IV-not on HD asof yet 4.Chest pain 5.SOB-secondary to CHF/volume overload 6.Nstemi-with decreasing enzymes and no chest pain currently. NOw s/p LHC without sig obstructive cad Rec: -tele -Continue BB/hydralazine and f/u BP -Asa currently held for ? gastrtis/anemia -HD for volume removal Problems: Consultation Date/Type/Reason Admit Date/Time Sep 16, 2016 at 03:23 Initial Consult Date 09/17/2016 Type of Consultation: Cardiology Reason for Consultation CHF/Nstemi Referring Provider: LUCAS WAHL MD Exam/Review of Systems Vital Signs Vitals Vital Signs Date Time Temp Pulse Resp B/P Pulse Ox O2 Delivery O2 Flow Rate FiO2 09/25/16 12:04 76 09/25/16 12:02 17 09/25/16 08:31 98.2 140/75 98 09/24/16 22:36 Room Air Intake and Output 09/24/16 09/24/16 09/25/16 15:00 23:00 07:00 Intake Total 780 ml 400 ml Output Total 500 ml Balance 780 ml -100 ml Exam Review of Systems: CONSTITUTIONAL: No fevers, chills. PULMONARY: No sob CARDIOVASCULAR: No chest pain/palpitations GASTROINTESTINAL: No nausea/vomiting. GENITOURINARY: No hematuria/dysuria. MUSCULOSKELETAL: No myagias/arthalgias. PSYCHIATRIC: The patient denies depression. NEUROLOGIC: No weakness Constitutional: alert, oriented Psych: no complaints Head: normocephalic ENMT: mucosa pink and moist Neck: jvd (8 cm water), supple Respiratory: clear to auscultation Cardiovascular: regular rate and rhythm Gastrointestinal: non-tender, soft Musculoskeletal: muscle tone (normal) Extremities: edema (none) Neurological: other (No focal deficits) Results Result Diagram: 09/23/16 1405 09/23/16 0530 Medications Medications Current Medications Docusate Sodium (Colace) 100 mg Q12H PRN PO CONSTIPATION; Start 09/16/16 at 09: 00 Hydralazine HCl (Apresoline) 10 mg Q6H PRN IV sbp >170 Last administered on 12:03; Admin Dose 10 MG; Start 09/16/16 at 17:00 Guaifenesin/ Codeine Phosphate (Robitussin Ac Liquid Cup) 5 ml Q8H PRN PO cough Last administered on 09/18/16 05:10; Admin Dose 5 ML; Start 09/18/16 at 05:00 Nitroglycerin (Nitroglycerin (Sl Tab) 0.4 Mg) 1 tab Q5M PRN SL ANGINA Last administered on 09/18/16 21:54; Admin Dose 1 TAB; Start 09/18/16 at 10:30 Carvedilol (Coreg) 6.25 mg BID PO Last administered on 09/25/16 08:42; Admin Dose 6.25 MG; Start 09/19/16 at 21:00 Hydralazine HCl (Apresoline) 50 mg Q8 PO Last administered on 09/25/16 14:14; Admin Dose 50 MG; Start 09/19/16 at 14:00 Aspirin (Aspirin) 325 mg DAILY PO Last administered on 09/25/16 08:41; Admin Dose 325 MG; Start 09/19/16 at 13:00 Heparin Sodium (Porcine) (Heparin (5000 Units/0.5 ml)) 5,000 unit Q8 SC Last administered on 09/25/16 14:18; Admin Dose 5,000 UNIT; Start 09/19/16 at 14:00 Epoetin Cj (Epogen (Esrd)) 6,000 units MoWeFr@17 SC Last administered on 09/23 18:06; Admin Dose 6,000 UNITS; Start 09/23/16 at 17:00 Clobetasol Propionate (Temovate 0.05% Cr) 1 applic BID TOP Last administered on 09/24/16 09:33; Admin Dose 1 APPLIC; Start 09/21/16 at 21:00 Folic Acid (Folic Acid) 1 mg DAILY PO Last administered on 09/25/16 08:41; Admin Dose 1 MG; Start 09/23/16 at 09:00 Multivit/Ca Carb/ B Cmplx/FA/Prenat (Luisa-Melissa) 1 tab DAILY PO Last administered on 3/29/17at 08:41; Admin Dose 1 TAB; Start 09/23/16 at 09:00 Pantoprazole (Protonix Tab) 40 mg DAILY@06 PO Last administered on 09/25/16t 05 :47; Admin Dose 40 MG; Start 09/23/16 at 06:00 Acetaminophen (Tylenol Tab) 650 mg Q4H PRN PO NON-CARDIAC PAIN LEVEL (1-3); Start 09/23/16 at 11:30 Morphine Sulfate (morphine) 2 mg Q2H PRN IV FOR NON CARDIAC PAIN (4-10); Start 09/23/16 at 11:30 Al Hydrox/Mg Hydrox/Simethicone (Mag-Al Plus) 30 ml Q4H PRN PO GASTROINTESTINAL UPSET; Start 09/23/16 at 11:30 Ondansetron HCl (Zofran Inj) 4 mg Q4H PRN IV NAUSEA AND/OR VOMITING; Start at 11:30 MATEO HODGSON Sep 25, 2016 15:01
[2016-09-25] MEDS: EPOETIN 3000 UNITS/1 ML INJ (ESRD) SC SCH (17:16)
--- NOTE | 2016-09-25 18:18 | CONS ---
Date/Time of Note Date/Time of Note DATE: 09/25/16 TIME: 18:17 Assessment/Plan Assessment/Plan Additional Assessment/Plan Additional Assessment/Plan IMPRESSION: 1. Retrosternal discomfort.resolved 2. Gastroesophageal reflux disease.better 3. Renal failure. 4. Congestive heart failure. 5. End-stage renal disease. 6. Hypertension. 7. Non-ST elevation myocardial infarction. Plan continue present care Consultation Date/Type/Reason Admit Date/Time Sep 16, 2016 at 03:23 Type of Consultation: Cardiology Referring Provider: LUCAS WAHL MD 24 HR Interval Summary Constitutional: improved, no complaints Exam/Review of Systems Vital Signs Vitals Vital Signs Date Time Temp Pulse Resp B/P Pulse Ox O2 Delivery O2 Flow Rate FiO2 09/25/16 12:04 76 09/25/16 12:02 17 09/25/16 08:31 98.2 140/75 98 09/24/16 22:36 Room Air Intake and Output 09/24/16 09/24/16 09/25/16 15:00 23:00 07:00 Intake Total 780 ml 400 ml Output Total 500 ml Balance 780 ml -100 ml Exam Constitutional: alert, oriented, well developed Psych: nl mood/affect, no complaints Head: atraumatic, normocephalic Eyes: EOMI, PERRL, nl conjunctiva, nl lids, nl sclera ENMT: nl external ears & nose, nl lips & teeth, nl nasal mucosa & septum Neck: non-tender, supple Respiratory: clear to auscultation, normal air movement Cardiovascular: nl pulses, regular rate and rhythm Gastrointestinal: nl liver, spleen, non-tender, soft Musculoskeletal: nl extremities to inspection, nl gait and stance Extremities: normal pulses Neurological: DIRECTOR SUPPLY CHAIN II-XII intact, nl mental status, nl speech, nl strength Skin: nl turgor, No rash or lesions Lymph: nl lymph nodes Results Result Diagram: 09/23/16 1405 09/23/16 0530 Medications Medications Current Medications Docusate Sodium (Colace) 100 mg Q12H PRN PO CONSTIPATION; Start 09/16/16 at 09: 00 Hydralazine HCl (Apresoline) 10 mg Q6H PRN IV sbp >170 Last administered on t 12:03; Admin Dose 10 MG; Start 09/16/16 at 17:00 Guaifenesin/ Codeine Phosphate (Robitussin Ac Liquid Cup) 5 ml Q8H PRN PO cough Last administered on 09/18/16 05:10; Admin Dose 5 ML; Start 09/18/16 at 05:00 Nitroglycerin (Nitroglycerin (Sl Tab) 0.4 Mg) 1 tab Q5M PRN SL ANGINA Last administered on 09/18/16 21:54; Admin Dose 1 TAB; Start 09/18/16 at 10:30 Carvedilol (Coreg) 6.25 mg BID PO Last administered on 09/25/16 08:42; Admin Dose 6.25 MG; Start 09/19/16 at 21:00 Hydralazine HCl (Apresoline) 50 mg Q8 PO Last administered on 09/25/16 14:14; Admin Dose 50 MG; Start 09/19/16 at 14:00 Aspirin (Aspirin) 325 mg DAILY PO Last administered on 09/25/16 08:41; Admin Dose 325 MG; Start 09/19/16 at 13:00 Heparin Sodium (Porcine) (Heparin (5000 Units/0.5 ml)) 5,000 unit Q8 SC Last administered on 09/25/16 14:18; Admin Dose 5,000 UNIT; Start 09/19/16 at 14:00 Epoetin Cj (Epogen (Esrd)) 6,000 units MoWeFr@17 SC Last administered on 09/25 17:16; Admin Dose 6,000 UNITS; Start 09/23/16 at 17:00 Clobetasol Propionate (Temovate 0.05% Cr) 1 applic BID TOP Last administered on 09/24/16 09:33; Admin Dose 1 APPLIC; Start 09/21/16 at 21:00 Folic Acid (Folic Acid) 1 mg DAILY PO Last administered on 09/25/16 08:41; Admin Dose 1 MG; Start 09/23/16 at 09:00 Multivit/Ca Carb/ B Cmplx/FA/Prenat (Luisa-Melissa) 1 tab DAILY PO Last administered on 09/25/16 08:41; Admin Dose 1 TAB; Start 09/23/16 at 09:00 Pantoprazole (Protonix Tab) 40 mg DAILY@06 PO Last administered on 09/25/16 05 :47; Admin Dose 40 MG; Start 09/23/16 at 06:00 Acetaminophen (Tylenol Tab) 650 mg Q4H PRN PO NON-CARDIAC PAIN LEVEL (1-3); Start 09/23/16 at 11:30 Morphine Sulfate (morphine) 2 mg Q2H PRN IV FOR NON CARDIAC PAIN (4-10); Start 09/23/16 at 11:30 Al Hydrox/Mg Hydrox/Simethicone (Mag-Al Plus) 30 ml Q4H PRN PO GASTROINTESTINAL UPSET; Start 09/23/16 at 11:30 Ondansetron HCl (Zofran Inj) 4 mg Q4H PRN IV NAUSEA AND/OR VOMITING; Start at 11:30 JUAN PARRA MD Sep 25, 2016 18:18
--- NOTE | 2016-09-25 19:39 | PN ---
Date/Time of Note Date/Time of Note DATE: 09/25/16 TIME: 19:38 Assessment/Plan VTE Prophylaxis VTE Prophylaxis Intervention: other Lines/Catheters IV [facility]from [facility] Urinary Cath still in place: No Assessment/Plan Chief Complaint/Hosp Course IMPRESSION: 1. Chronic kidney disease V,on hd 2. Metabolic acidosis. better 3. Leukocytosis.better 4. Hypertension. 5. Uremia. 6. Pulmonary edema.BETTER 7 s/p cath no pci plan hd waiting for hd center approval Problems: Subjective 24 Hr Interval Summary Subjective hx not possible: other (waiting for auth for hd) Exam/Review of Systems Vital Signs Vitals Vital Signs Date Time Temp Pulse Resp B/P Pulse Ox O2 Delivery O2 Flow Rate FiO2 09/25/16 12:04 76 09/25/16 12:02 17 09/25/16 08:31 98.2 140/75 98 09/24/16 22:36 Room Air Intake and Output 09/24/16 09/24/16 09/25/16 15:00 23:00 07:00 Intake Total 780 ml 400 ml Output Total 500 ml Balance 780 ml -100 ml Exam Neck: supple Respiratory: clear to auscultation Cardiovascular: regular rate and rhythm Gastrointestinal: soft Results Result Diagram: 09/23/16 1405 09/23/16 0530 Medications Medications Current Medications Docusate Sodium (Colace) 100 mg Q12H PRN PO CONSTIPATION; Start 09/16/16 at 09: 00 Hydralazine HCl (Apresoline) 10 mg Q6H PRN IV sbp >170 Last administered on 12:03; Admin Dose 10 MG; Start 09/16/16 at 17:00 Guaifenesin/ Codeine Phosphate (Robitussin Ac Liquid Cup) 5 ml Q8H PRN PO cough Last administered on 09/18/16 05:10; Admin Dose 5 ML; Start 09/18/16 at 05:00 Nitroglycerin (Nitroglycerin (Sl Tab) 0.4 Mg) 1 tab Q5M PRN SL ANGINA Last administered on 09/18/16 21:54; Admin Dose 1 TAB; Start 09/18/16 at 10:30 Carvedilol (Coreg) 6.25 mg BID PO Last administered on 09/25/16 08:42; Admin Dose 6.25 MG; Start 09/19/16 at 21:00 Hydralazine HCl (Apresoline) 50 mg Q8 PO Last administered on 09/25/16 14:14; Admin Dose 50 MG; Start 09/19/16 at 14:00 Aspirin (Aspirin) 325 mg DAILY PO Last administered on 09/25/16 08:41; Admin Dose 325 MG; Start 09/19/16 at 13:00 Heparin Sodium (Porcine) (Heparin (5000 Units/0.5 ml)) 5,000 unit Q8 SC Last administered on 09/25/16 14:18; Admin Dose 5,000 UNIT; Start 09/19/16 at 14:00 Epoetin Cj (Epogen (Esrd)) 6,000 units MoWeFr@17 SC Last administered on 09/25 17:16; Admin Dose 6,000 UNITS; Start 09/23/16 at 17:00 Clobetasol Propionate (Temovate 0.05% Cr) 1 applic BID TOP Last administered on 09/24/16 09:33; Admin Dose 1 APPLIC; Start 09/21/16 at 21:00 Folic Acid (Folic Acid) 1 mg DAILY PO Last administered on 09/25/16 08:41; Admin Dose 1 MG; Start 09/23/16 at 09:00 Multivit/Ca Carb/ B Cmplx/FA/Prenat (Luisa-Melissa) 1 tab DAILY PO Last administered on 09/25/16 08:41; Admin Dose 1 TAB; Start 09/23/16 at 09:00 Pantoprazole (Protonix Tab) 40 mg DAILY@06 PO Last administered on 09/25/16 05 :47; Admin Dose 40 MG; Start 09/23/16 at 06:00 Acetaminophen (Tylenol Tab) 650 mg Q4H PRN PO NON-CARDIAC PAIN LEVEL (1-3); Start 09/23/16 at 11:30 Morphine Sulfate (morphine) 2 mg Q2H PRN IV FOR NON CARDIAC PAIN (4-10); Start 09/23/16 at 11:30 Al Hydrox/Mg Hydrox/Simethicone (Mag-Al Plus) 30 ml Q4H PRN PO GASTROINTESTINAL UPSET; Start 09/23/16 at 11:30 Ondansetron HCl (Zofran Inj) 4 mg Q4H PRN IV NAUSEA AND/OR VOMITING; Start at 11:30 LUCAS WAHL MD Sep 25, 2016 19:39
[2016-09-26 05:40] VITALS: BP 137/74; PULSE 71; RESP 18
[2016-09-26] MEDS: PANTOPRAZOLE (EC) 40 MG TAB PO SCH (05:45)
[2016-09-26] MEDS: FUROSEMIDE 40 MG INJ IV SCH ×2 (05:47→17:46)
[2016-09-26] MEDS: HEPARIN 5,000 UNIT/0.5 ML SYG SC SCH ×2 (05:57→14:21)
[2016-09-26] MEDS: FOLIC ACID 1 MG TAB PO SCH (08:44)
[2016-09-26] MEDS: CLOBETASOL 0.05% 15 GM CR TOP SCH (08:44)
[2016-09-26] MEDS: MULTIVIT/CA CARB/B CMPLX/FA TAB PO SCH (08:44)
[2016-09-26] MEDS: ASPIRIN 325 MG TAB PO SCH (08:44)
[2016-09-26 09:00] VITALS: BP 142/76; RESP 18
--- NOTE | 2016-09-26 10:24 | CONS ---
Date/Time of Note Date/Time of Note DATE: 09/26/16 TIME: 10:23 Assessment/Plan Assessment/Plan Additional Assessment/Plan Additional Assessment/Plan Additional Assessment/Plan IMPRESSION: 1. Retrosternal discomfort.resolved 2. Gastroesophageal reflux disease.better 3. Renal failure. 4. Congestive heart failure. 5. End-stage renal disease. 6. Hypertension. 7. Non-ST elevation myocardial infarction. Plan continue present care Continue PPI Consultation Date/Type/Reason Admit Date/Time Sep 16, 2016 at 03:23 Type of Consultation: Cardiology Referring Provider: LUCAS WAHL MD 24 HR Interval Summary Free Text/Dictation Patient has no chest pain, no shortness of breath. No heartburn or epigastric pain. Constitutional: improved, no complaints Exam/Review of Systems Vital Signs Vitals Vital Signs Date Time Temp Pulse Resp B/P Pulse Ox O2 Delivery O2 Flow Rate FiO2 09/26/16 09:00 97.9 81 18 142/76 99 09/26/16 05:40 Room Air Intake and Output 09/25/16 09/25/16 09/26/16 15:00 23:00 07:00 Intake Total 300 ml 1075 ml 360 ml Output Total 2300 ml 400 ml Balance -2000 ml 675 ml 360 ml Exam Constitutional: alert, oriented, well developed Psych: nl mood/affect, no complaints Head: atraumatic, normocephalic Eyes: EOMI, PERRL, nl conjunctiva, nl lids, nl sclera ENMT: nl external ears & nose, nl lips & teeth, nl nasal mucosa & septum Neck: non-tender, supple Respiratory: clear to auscultation, normal air movement Cardiovascular: nl pulses, regular rate and rhythm Gastrointestinal: nl liver, spleen, non-tender, soft Musculoskeletal: nl extremities to inspection, nl gait and stance Extremities: normal pulses Neurological: LEAD PRESSMAN II-XII intact, nl mental status, nl speech, nl strength Skin: nl turgor, No rash or lesions Lymph: nl lymph nodes Results Result Diagram: 09/23/16 1405 09/23/16 0530 Medications Medications Current Medications Docusate Sodium (Colace) 100 mg Q12H PRN PO CONSTIPATION; Start 09/16/16 at 09: 00 Hydralazine HCl (Apresoline) 10 mg Q6H PRN IV sbp >170 Last administered on 12:03; Admin Dose 10 MG; Start 09/16/16 at 17:00 Guaifenesin/ Codeine Phosphate (Robitussin Ac Liquid Cup) 5 ml Q8H PRN PO cough Last administered on 09/18/16 05:10; Admin Dose 5 ML; Start 09/18/16 at 05:00 Nitroglycerin (Nitroglycerin (Sl Tab) 0.4 Mg) 1 tab Q5M PRN SL ANGINA Last administered on 09/18/16 21:54; Admin Dose 1 TAB; Start 09/18/16 at 10:30 Carvedilol (Coreg) 6.25 mg BID PO Last administered on 09/26/16 08:46; Admin Dose 6.25 MG; Start 09/19/16 at 21:00 Hydralazine HCl (Apresoline) 50 mg Q8 PO Last administered on 09/26/16 05:45; Admin Dose 50 MG; Start 09/19/16 at 14:00 Aspirin (Aspirin) 325 mg DAILY PO Last administered on 09/26/16 08:44; Admin Dose 325 MG; Start 09/19/16 at 13:00 Heparin Sodium (Porcine) (Heparin (5000 Units/0.5 ml)) 5,000 unit Q8 SC Last administered on 09/26/16 05:57; Admin Dose 5,000 UNIT; Start 09/19/16 at 14:00 Epoetin Cj (Epogen (Esrd)) 6,000 units MoWeFr@17 SC Last administered on 09/25 17:16; Admin Dose 6,000 UNITS; Start 09/23/16 at 17:00 Clobetasol Propionate (Temovate 0.05% Cr) 1 applic BID TOP Last administered on 09/26/16 08:44; Admin Dose 1 APPLIC; Start 09/21/16 at 21:00 Folic Acid (Folic Acid) 1 mg DAILY PO Last administered on 09/26/16 08:44; Admin Dose 1 MG; Start 09/23/16 at 09:00 Multivit/Ca Carb/ B Cmplx/FA/Prenat (Luisa-Melissa) 1 tab DAILY PO Last administered on 09/26/16 08:44; Admin Dose 1 TAB; Start 09/23/16 at 09:00 Pantoprazole (Protonix Tab) 40 mg DAILY@06 PO Last administered on 09/26/16t 05 :45; Admin Dose 40 MG; Start 09/23/16 at 06:00 Acetaminophen (Tylenol Tab) 650 mg Q4H PRN PO NON-CARDIAC PAIN LEVEL (1-3); Start 09/23/16 at 11:30 Morphine Sulfate (morphine) 2 mg Q2H PRN IV FOR NON CARDIAC PAIN (4-10); Start 09/23/16 at 11:30 Al Hydrox/Mg Hydrox/Simethicone (Mag-Al Plus) 30 ml Q4H PRN PO GASTROINTESTINAL UPSET; Start 09/23/16 at 11:30 Ondansetron HCl (Zofran Inj) 4 mg Q4H PRN IV NAUSEA AND/OR VOMITING; Start at 11:30 JUAN PARRA MD Sep 26, 2016 10:24
[2016-09-26 14:22] VITALS: BP 134/75; PULSE 80; RESP 20
--- NOTE | 2016-09-26 17:38 | PDOCDIS ---
Discharge Instructions CONDITION Patient Condition: Stable HOME CARE INSTRUCTIONS: Diet Instructions: RENAL DIETSpecial Diet: RENAL ACTIVITY: Activity Restrictions: Slowly Increase Activity Do not operate Machinery Avoid Heavy Housework Bathing Restrictions: Tub Bath FOLLOW UP/APPOINTMENTS Appointments f/u pcp [address] wahl [address] ramírez 2 wks LUCAS WAHL MD Sep 26, 2016 17:38
[2016-09-26] MEDS ORDERED: PANT40TA4 PO (17:41)
[2016-09-26] MEDS ORDERED: APR50 PO (17:41)
[2016-09-26] MEDS ORDERED: NEPH PO (17:41)
[2016-09-26] MEDS ORDERED: ASPI325T4 PO (17:41)
[2016-09-26] MEDS ORDERED: FOLI-49 PO (17:41)
[2016-09-26] MEDS ORDERED: TEM15CR5 TOP (17:41)
[2016-09-26] MEDS ORDERED: CARV6.2579 PO (17:41)
[2016-09-26] MEDS ORDERED: DOCU-216 PO (17:41)
[2016-09-26] MEDS ORDERED: NIT4 SL (17:41)
[2016-09-26] MEDS ORDERED: CALC667T2 PO (17:44)
== END 2016-09-26 19:00 | disposition home or self-care (01) | DRG 280 ==
LOC: E/R 00:37 → TEL 03:23 → MS1 09-24 20:15
PROVIDERS: ADMIT Internal Medicine Nephrology; ATTEND Internal Medicine Nephrology
PROC: 5A1D60Z (ICD-10-PCS; 2016-09-16)
PROC: 30233N1 Transfusion of Nonautologous Red Blood Cells into Peripheral Vein, Percutaneous Approach (ICD-10-PCS; 2016-09-17)
PROC: 05HM33Z Insertion of Infusion Device into Right Internal Jugular Vein, Percutaneous Approach (ICD-10-PCS; 2016-09-19)
PROC: B513YZA Fluoroscopy of Right Jugular Veins using Other Contrast, Guidance (ICD-10-PCS; 2016-09-19)
PROC: 30233N1 Transfusion of Nonautologous Red Blood Cells into Peripheral Vein, Percutaneous Approach (ICD-10-PCS; 2016-09-21)
PROC: 4A023N7 Measurement of Cardiac Sampling and Pressure, Left Heart, Percutaneous Approach (ICD-10-PCS; principal; 2016-09-23 09:30)
PROC: B211YZZ Fluoroscopy of Multiple Coronary Arteries using Other Contrast (ICD-10-PCS; 2016-09-23 09:30)
DX: I13.2 Hypertensive heart and chronic kidney disease with heart failure and with stage 5 chronic kidney disease, or end stage renal disease (principal); I21.4 Non-ST elevation (NSTEMI) myocardial infarction; I50.31 Acute diastolic (congestive) heart failure; N17.9 Acute kidney failure, unspecified; N18.6 End stage renal disease; E87.2 Acidosis; I25.10 Atherosclerotic heart disease of native coronary artery without angina pectoris; Z99.2 Dependence on renal dialysis; K21.9 Gastro-esophageal reflux disease without esophagitis
CPT/HCPCS: 36430; 36558; 71010; 76775; 76942; 80048; 80053; 81001; 81003; 82550; 82553; 82570; 83540; 83880; 83970; 84100; 84300; 84484; 85025; 85610; 85730; 86704; 86709; 86803; 86850; 86900; 86901; 86920; 87340; 89190; 90935; 93005; 93306; 93458; 93970; C1769; C1887; C9113; J0360; J0690; J0886; J1200; J1644; J1940; J2250; J2270; J2405; J3010; J7040; P9016; Q9967

== ENCOUNTER 2016-10-22 15:24 | Emergency (ER) | payer SELFPAY ==
[~2016-10-22] VITALS: Ht 170.2 cm; Wt 58.5 kg
[~2016-10-22 15:24] MED LIST changes: +ASPI325T4 PO; +BICS PO; +CALC667T2 PO; +CARV6.25 PO; +CARV6.2579 PO; +DOCU-216 PO; +FOLI-49 PO; +GABA100C PO; +HYDR-3672 PO; +NEPH PO; +NIT4 SL; +PANT40TA4 PO; +TEM15CR5 TOP
[2016-10-22 16:11] VITALS: Ht 170.2 cm; Wt 58.5 kg
[2016-11-07] MEDS ORDERED: MINE133E23 PR (19:02)
== END 2016-10-22 20:15 | disposition left against medical advice (07) ==
LOC: E/R 15:24
DX: Z53.21 Procedure and treatment not carried out due to patient leaving prior to being seen by health care provider (principal)

== ENCOUNTER 2016-10-24 16:35 | Inpatient (IN) | payer OTHER ==
[~2016-10-24] VITALS: Ht 170.2 cm; Wt 54.8 kg
[~2016-10-24 16:35] MED LIST changes: -AMLO-218 PO; -AMOX250C PO; -BICS PO; -CARV6.25 PO; -CLAR250T PO; -GABA100C PO; -OMEP20CA16 PO; -ZOF8 PO
[2016-10-24] MEDS ORDERED: LABETALOL HCL 20MG INJ IV ONE (17:00)
[2016-10-24 17:17] LABS: ADD SCAN DIFF NO
[2016-10-24 17:19] LABS: BASOPHIL # 0.1 10^3/ul (0.0-0.1); BASOPHILS % 0.9 % (0.0-2.0); EOSINOPHILS # 0.3 10^3/ul (0.0-0.5); HEMATOCRIT 44.4 % (42.0-52.0); HEMOGLOBIN 14.5 g/dl (14.0-18.0); LYMPHOCYTES # 2.2 10^3/ul (0.8-2.9); LYMPHOCYTES % 24.1 % (15.0-51.0); MEAN CORPUSCULAR HEMOGLOBIN 30.7 pg (29.0-33.0); MEAN CORPUSCULAR HGB CONC 32.7 g/dl (32.0-37.0); MEAN CORPUSCULAR VOLUME 94.1 fl (82.0-101.0); MEAN PLATELET VOLUME 9.3 fl (7.4-10.4); MONOCYTE # 0.7 10^3/ul (0.3-0.9); MONOCYTES % 8.2 % (0.0-11.0); NEUTROPHIL # 5.6 10^3/ul (1.6-7.5); PLATELET COUNT 262 10^3/UL (140-415); RED BLOOD COUNT 4.72 10^6/ul (4.70-6.10); WHITE BLOOD COUNT 8.9 10^3/ul (4.8-10.8)
[2016-10-24] MEDS ORDERED: CARV12.579 PO (17:25)
[2016-10-24] MEDS ORDERED: HYDR100T7 PO (17:28)
[2016-10-24] MEDS ORDERED: LOSA50TA6 PO (17:28)
[2016-10-24 17:29] LABS: CHLORIDE 96 mmol/L (97-110); POTASSIUM 4.2 mmol/L (3.5-5.1); SODIUM 136 mmol/L (135-144)
[2016-10-24] MEDS ORDERED: NIFE60TA7 PO (17:29)
[2016-10-24 17:30] LABS: ALBUMIN 5.3 g/dl (3.3-4.9); INR 0.98
[2016-10-24] MEDS ORDERED: FLUORESCEIN STRIP BOTH EYES ONE (17:30)
[2016-10-24] MEDS ORDERED: GLYC488L PO (17:31)
[2016-10-24 17:32] LABS: ANION GAP 20 (8-16); CARBON DIOXIDE 24 mmol/L (21-31); CREATININE 5.13 mg/dl (0.61-1.24)
[2016-10-24 17:33] LABS: BILIRUBIN,INDIRECT 0.2 mg/dl (0-1.1); BILIRUBIN,TOTAL 0.2 mg/dl (0.2-1.3); BLOOD UREA NITROGEN 14 mg/dl (7-20); CALCIUM 10.7 mg/dl (8.4-10.2); GLUCOSE 141 mg/dl (70-220); TOTAL PROTEIN 9.3 g/dl (6.1-8.1)
[2016-10-24] MEDS ORDERED: IRON100V IV (17:33)
--- NOTE | 2016-10-24 17:42 | RADRPT ---
PROCEDURE: XR Chest. CLINICAL INDICATION: Chest Pain. TECHNIQUE: Single frontal view of the chest was obtained. COMPARISON: None. FINDINGS: The cardiomediastinal silhouette is normal size. Pulmonary vasculature is within normal limits. Th e lungs are clear. There is a right internal jugular catheter terminating in the cavoatrial junction region. No signs of pleural fluid or pneumothorax are seen. The osseous structures and soft tissues are unre markable. IMPRESSION: No evidence for active cardiopulmonary disease. Right internal jugular catheter in place. RPTAT: DD .Owen Corrigan MD, MD Date Time Electronically viewed and signed by .Owen Corrigan MD, on 10/24/2016 17:42 .T/
[2016-10-24 17:44] LABS: TROPONIN-I < 0.012 ng/ml (0.00-0.12)
--- NOTE | 2016-10-24 18:39 | RADRPT ---
PROCEDURE: CT abdomen and pelvis without IV contrast. CLINICAL INDICATION: Abdominal pain TECHNIQUE: CT scan of the abdomen and pelvis without contrast was performed on the [employer] volumetric [address] scanner. The patient was scanned without intravenous contrast. Coronal and sagittal refo rmatted images were obtained from the axial source images. The CTDI vol is 6.84 mGy and the DLP is 3 49.68 mGy-cm. COMPARISON: 01/29/2015 FINDINGS: CT abdomen: Mild dependent changes in the lung bases is seen. A tiny scar in the right lower lobe is once again suggested and is again seen. The remaining lung bases are clear. The heart size is not enlarged a nd is without pericardial thickening or effusion. The liver is normal in size and density and is without focal mass or intrahepatic biliary dilatation . The spleen is normal in size and homogeneous in density. The stomach is grossly unremarkable. T he pancreas as visualized is normal. The gallbladder and biliary tree are unremarkable and there is no evidence for common bile duct dilatation. The adrenal glands are symmetric and normal. The kid neys are atrophic which is once again seen. No renal calculus or obstructive uropathy or mass lesio n is seen. The aorta is of normal in caliber. Atherosclerotic vascular disease is seen. There is no retroperito [place]ol[place] lymphadenopathy. The shel[place] hepatis region is clear. The large bowel is stool-filled. The smal l and large bowel and mesentery, as visualized, are otherwise unremarkable. No inflammatory changes in the periappendiceal region is seen. CT pelvis: The pelvic organs are normal. The pelvic sidewalls and inguinal regions are clear. No pelvic mass, lymphadenopathy, or free fluid is seen. No acute inflammation is seen. The urinary bladder is wit hin normal limits. The surrounding osseous structures are unremarkable. No osteolytic or osteoblastic lesion is detect ed. IMPRESSION: 1. No acute pathology in the abdomen and pelvis. 2. Stool filled large bowel. 3. Atrophic kidneys again seen. RPTAT: HPNM Physician Rafy Date Time Electronically viewed and signed by Garrick Tuttle Physician on 10/24/2016 18:39 /
[2016-10-24 18:56] LABS: PARTIAL THROMBOPLASTIN TIME > 180.0 Sec (25.0-35.0)
[2016-10-24] MEDS ORDERED: hydrALAzine 20 MG INJ IV ONE ×2 (20:00→20:30)
[2016-10-24] MEDS ORDERED: ONDANSETRON 4 MG INJ IV PRN (20:30)
[2016-10-24] MEDS ORDERED: ACETAMINOPHEN 325 MG TAB PO PRN (20:30)
[2016-10-24] MEDS ORDERED: ASPIRIN 81 MG TAB PO ONE (20:30)
[2016-10-24] MEDS ORDERED: MAGNESIUM CITRATE 300 ML BTL PO ONE (20:30)
--- NOTE | 2016-10-24 20:43 | ERA ---
ER Documentation Chief Complaint Date/Time DATE: 10/24/16 TIME: 20:30 Chief Complaint HIGH BLOOD PRESSURE AND BLURRY VISION, ABD PAIN S/P DIALYSIS (T, TH, SAT) HPI 51-year-old male brought in by ambulance after dialysis for blurry vision that is has been going on for a month and is in both eyes. He has had no trauma to the eyes. Also states that he is feeling somewhat lightheaded. He also complains of diffuse abdominal pain worse in his left upper quadrant. Denies chest pain and shortness of breath. He has a list of multiple hypertensive medications which he states that he is taking however his blood pressure is extremely high in triage. Denies headache. ROS All systems reviewed and are negative except as per history of present illness. Medications Home Meds Active Scripts Calcium Acetate* (Phoslo*) 667 Mg Tablet, 1334 MG PO WITH MEALS for 28 Days, TAB Prov:LUCAS WAHL MD 09/26/16 Multivit/Ca Carb/B Cmplx/Fa* (Luisa-Melissa*) 1 Tab Tab, 1 TAB PO DAILY for 28 Days , TAB Prov:LUCAS WAHL MD 09/26/16 Folic Acid* (Folic Acid*) 1 Mg Tablet, 1 MG PO DAILY for 28 Days, TAB Prov:LUCAS WAHL MD 09/26/16 Clobetasol Propionate* (Temovate*) 0.05%-15gm Cream..g., 1 APPLIC TOP BID for 7 Days Prov:LUCAS WAHL MD 09/26/16 Pantoprazole* (Pantoprazole*) 40 Mg Tablet.dr, 40 MG PO DAILY@06 for 28 Days Prov:LUCAS WAHL MD 09/26/16 Docusate Sodium (Dok) 100 Mg Capsule, 100 MG PO Q12H Y for CONSTIPATION for 28 Days, CAP Prov:LUCAS WAHL MD 09/26/16 Aspirin (Aspirin Lite-Coat) 325 Mg Tablet, 325 MG PO DAILY for 28 Days, TAB Prov:LUCAS WAHL MD 09/26/16 Nitroglycerin* (Nitrostat*) 0.4 Mg Tab.subl, 1 TAB SL Q5M Y for ANGINA for 28 Days Prov:LUCAS WAHL MD 09/26/16 Reported Medications Iron Sucrose* (Venofer*) 100 Mg/5 Ml Vial, 100 MG IV, VIAL EVERY TRMT 10/24/16 Glycerin/Maltodextrin (Liquafiber Liquid) 488 Ml Liquid, 30 ML PO EVERY SCHED DIALYSIS TRMT 10/24/16 Nifedipine* (Nifedipine ER*) 60 Mg Tablet.sa, 60 MG PO DAILY, TAB.SA 10/24/16 Losartan Potassium* (Losartan Potassium*) 50 Mg Tablet, 50 MG PO BID, TAB 10/24/16 Hydralazine Hcl* (Hydralazine Hcl*) 100 Mg Tablet, 100 MG PO Q8, #90 TAB 10/24/16 Carvedilol* (Carvedilol*) 12.5 Mg Tablet, 12.5 MG PO BID, #60 TAB 10/24/16 Discontinued Scripts Hydralazine Hcl* (Hydralazine Hcl*) 50 Mg Tab, 50 MG PO Q8 for 28 Days, TAB Prov:LUCAS WAHL MD 09/26/16 Carvedilol* (Carvedilol*) 6.25 Mg Tablet, 6.25 MG PO BID for 28 Days, TAB Prov:LUCAS WAHL MD 09/26/16 Allergies Allergies: Coded Allergies: No Known Allergy (Unverified , 10/24/16) PMhx/Soc History of Surgery: Yes (left thumb) Anesthesia Reaction: No Hx Neurological Disorder: No Hx Respiratory Disorders: No Hx Cardiac Disorders: Yes (htn, cholesterol) Hx Psychiatric Problems: No Hx Miscellaneous Medical Probl: No Hx Alcohol Use: No (quit several years ago) Hx Substance Use: No Hx Tobacco Use: No (quit several years ago) Smoking Status: Never smoker Physical Exam Vitals Vital Signs Date Time Temp Pulse Resp B/P Pulse Ox O2 Delivery O2 Flow Rate FiO2 10/24/16 18:48 98.2 69 16 201/95 100 Room Air 10/24/16 16:41 98.8 85 18 247/123 Physical Exam Const: [] Mild distress Head: Atraumatic Eyes: Normal Conjunctiva, no fluorescein uptake on fluorescein exam with Wood 's lamp. ENT: Normal External Ears, Nose and Mouth. Neck: Full range of motion..~ No meningismus. Resp: Clear to auscultation bilaterally Cardio: Regular rate and rhythm, no murmurs Abd: Soft, non tender, non distended. Normal bowel sounds Skin: No petechiae or rashes Back: No midline or flank tenderness Ext: No cyanosis, or edema Neur: Awake and alert and oriented 3, no focal deficits, cranial nerves II through XII intact, no cerebellar deficits, normal gait Psych: Normal Mood and Affect Result Diagram: 10/24/16 1405 10/24/16 1405 Results 24 hrs Laboratory Tests Test 10/24/16 14:05 White Blood Count 8.910^3/ul Red Blood Count 4.7210^6/ul Hemoglobin 14.5g/dl Hematocrit 44.4% Mean Corpuscular Volume 94.1fl Mean Corpuscular Hemoglobin 30.7pg Mean Corpuscular Hemoglobin Concent 32.7g/dl Red Cell Distribution Width 14.0% Platelet Count 71664^3/UL Mean Platelet Volume 9.3fl Neutrophils % 63.0% Lymphocytes % 24.1% Monocytes % 8.2% Eosinophils % 3.0% Basophils % 0.9% Nucleated Red Blood Cells % 0.0/100WBC Neutrophils # 5.610^3/ul Lymphocytes # 2.210^3/ul Monocytes # 0.710^3/ul Eosinophils # 0.310^3/ul Basophils # 0.110^3/ul Nucleated Red Blood Cells # 0.010^3/ul Prothrombin Time 13.0Sec Prothrombin Time Ratio 1.0 INR International Normalized Ratio 0.98 Activated Partial Thromboplast Time > 180.0Sec Sodium Level 136mmol/L Potassium Level 4.2mmol/L Chloride Level 96mmol/L Carbon Dioxide Level 24mmol/L Anion Gap 20 Blood Urea Nitrogen 14mg/dl Creatinine 5.13mg/dl Glucose Level 141mg/dl Calcium Level 10.7mg/dl Total Bilirubin 0.2mg/dl Direct Bilirubin 0.00mg/dl Indirect Bilirubin 0.2mg/dl Aspartate Amino Transf (AST/SGOT) 38IU/L Alanine Aminotransferase (ALT/SGPT) 23IU/L Alkaline Phosphatase 155IU/L Troponin I < 0.012ng/ml Total Protein 9.3g/dl Albumin 5.3g/dl Lipase 336U/L Current Medications Medications (Trade) Dose Ordered Sig/Jessica Route PRN Reason Start Time Stop Time Status Last Admin Dose Admin Labetalol HCl (Labetalol) 20 mg ONCE ONCE IV 10/24/16 17:00 10/24/16 17:01 DC 10/24/16 17:19 Fluorescein Sodium (Cohhn-T-Kgcbt) 1 strip ONCE ONCE BOTH EYES 10/24/16 17:30 10/24/16 17:31 DC 10/24/16 17:19 Hydralazine HCl (Apresoline) 10 mg ONCE ONCE IV 10/24/16 20:00 10/24/16 20:01 DC 10/24/16 19:59 Hydralazine HCl (Apresoline) 20 mg ONCE ONCE IV 10/24/16 20:30 10/24/16 20:31 Aspirin (Aspirin) 324 mg ONCE ONCE PO 10/24/16 20:30 10/24/16 20:31 Procedures/MDM Hypertensive crisis with blurred vision and EKG changes. I spoke with Dr. Wahl , who will be admitting the patient to telemetry. He does not believe that the patient is compliant with his medications which would make sense considering the difficulty lowering his blood pressure. Compared the patient's EKG to prior EKG done the patient has new T-wave inversions in the inferolateral leads. I did give him an aspirin. He required multiple doses of hypertensive medication to lower his blood pressure. 20 mg of labetalol had almost no effect except for decreasing his heart rate somewhat. Then 10 and 20 mg of hydralazine did help to lower his blood pressure to a somewhat safer level. He had no chest pain. I am going to admit him for further cardiac workup as he has ischemic changes on his EKG as well as the blurred vision. Fluorescein exam showed no fluorescein uptake. Her vision has been going on for an entire month and if the patient is noncompliant his medications it could be because of his extremely high blood pressure. EKG interpretation: Normal sinus rhythm, rate of 72, left axis deviation, normal intervals, new T-wave inversions in inferolateral leads suspicious for ischemia. manager monitoring interpretation: Normal sinus rhythm without arrhythmia Chest x-ray interpretation: I see no acute process. I see no pneumothorax, no widened mediastinum, no infiltrate, no fractures CT abdomen pelvis interpretation: Moderate constipation, see no obstruction, no free air, no inflammatory process, no acute fractures. Critical care time 47 minutes: This includes time to treat hypertensive crisis with vision changes and ischemic EKG changes, use of multiple IV vasoactive medications, multiple visits patient's bedside reassess status, chart review, discussion with admitting doctor and patient. This does not include any billable procedures per Departure Diagnosis: Primary Impression: Hypertensive crisis Additional Impressions: Acute electrocardiogram changes Constipation Abdominal pain Blurred vision, bilateral Condition: Serious NEAL MARQUIS DO Oct 24, 2016 20:40
--- NOTE | 2016-10-24 21:09 | RADRPT ---
PROCEDURE: CT brain without contrast CLINICAL INDICATION: Hypertension. Blurred vision TECHNIQUE: A CT of the brain was performed utilizing axial sections from the skull base through th e vertex without contrast. Sagittal and coronal images were also reformatted. The exam CTDIvol = 44. 26 mGy and DLP = 720.23 mGy-cm. COMPARISON: 06/27/2014 FINDINGS: No acute intracranial hemorrhage is identified. There is no mass effect or midline shift. No extra -axial fluid collection is seen. The ventricles and sulci are within normal limits for size and con figuration. The density of the brain is within normal limits. Tiny physiologic calcifications withi n the globus pallidus bilaterally are incidentally noted and unchanged from the prior exam Pollard-whit e differentiation is preserved. The osseous structures are unremarkable. The mastoid air cells and visualized paranasal sinuses are clear. RPTAT:HJJR IMPRESSION: Unremarkable noncontrast CT of the brain without interval change from a 06/27/2014. Physician Sarah Date Time Electronically viewed and signed by Physician Sarah on 10/24/2016 21:08 /
[2016-10-24 22:58] LABS: CREATINE KINASE 108 IU/L (23-200)
[2016-10-24 23:07] LABS: CK-MB 0.83 ng/ml (0.0-2.4)
[2016-10-24 23:19] LABS: TROPONIN-I < 0.012 ng/ml (0.00-0.12)
[2016-10-25 07:06] LABS: TROPONIN-I 0.013 ng/ml (0.00-0.12)
[2016-10-25 07:28] LABS: CK-MB 0.83 ng/ml (0.0-2.4)
[2016-10-25] MEDS ORDERED: ACETAMINOPHEN 325 MG TAB PO PRN (14:00)
[2016-10-25] MEDS: CLOBETASOL 0.05% 15 GM CR TOP SCH ×2 (14:00→22:00)
[2016-10-25] MEDS ORDERED: DOCUSATE SODIUM 100 MG CAP PO PRN (14:00)
[2016-10-25] MEDS ORDERED: NACL 0.9% 3 ML SYG IV SCH (14:00)
--- NOTE | 2016-10-25 14:10 | PN ---
Date/Time of Note Date/Time of Note DATE: 10/25/16 TIME: 14:08 Assessment/Plan VTE Prophylaxis VTE Prophylaxis Intervention: ambulation Lines/Catheters IV Catheter Type (from Nrsg): Saline Lock Assessment/Plan Chief Complaint/Hosp Course 1. Hypertension, uncontrollable 2. Abdominal pain 3. End of stage renal disease 4. right chest portocath, HD dependent, Problems: Assessment/Plan 1. Admit as observation Medsurg Subjective 24 Hr Interval Summary Constitutional: no complaints Eyes: no complaints ENT: no complaints Respiratory: no complaints Cardiovascular: other (high BP) Gastrointestinal: pain Musculoskeletal: no complaints Skin: no complaints, skin lesions Neurologic: no complaints Exam/Review of Systems Vital Signs Vitals Vital Signs Date Time Temp Pulse Resp B/P Pulse Ox O2 Delivery O2 Flow Rate FiO2 10/25/16 08:27 68 15 142/95 99 Room Air 10/25/16 05:19 98.1 Exam Constitutional: alert, oriented Psych: no complaints Head: normocephalic Eyes: nl conjunctiva ENMT: nl external ears & nose Neck: supple Respiratory: clear to auscultation Cardiovascular: regular rate and rhythm Gastrointestinal: soft Genitourinary - Male: nl penis Musculoskeletal: nl extremities to inspection Results Result Diagram: 10/24/16 1405 10/24/16 1405 Results 24 hrs Laboratory Tests Test 10/24/16 22:35 10/25/16 05:35 Creatine Kinase 108 90 Creatine Kinase Index 0.8 0.9 Creatinine Kinase MB (Mass) 0.83 0.83 Troponin I < 0.012 0.013 Medications Medications Current Medications Acetaminophen (Tylenol Tab) 650 mg Q6H PRN PO PAIN LEVEL 1-3 OR FEVER; Start at 14:00; Status UNV Docusate Sodium (Colace) 100 mg Q12H PRN PO CONSTIPATION; Start 10/25/16 at 14: 00; Status UNV Pantoprazole (Protonix Tab) 40 mg DAILY@06 PO ; Start 10/26/16 at 06:00; Status UNV Clobetasol Propionate (Temovate 0.05% Cr) 1 applic Q8 TOP ; Start 10/25/16 at 14 :00; Status UNV RONDA VILLEGAS Oct 25, 2016 14:10
[2016-10-25 14:36] VITALS: TEMP 98.2
--- NOTE | 2016-10-25 16:43 | HP ---
Date/Time of Note Date/Time of Note DATE: 10/25/16 TIME: 16:28 Assessment/Plan VTE Prophylaxis VTE Prophylaxis Intervention: anti-embolic stocking Lines/Catheters IV Catheter Type (from Nrs): Saline Lock Assessment/Plan Chief Complaint/Hosp Course 1. Hypertensive crisis, probably due to non-compliance 2. Abdominal pain 3. End of stage renal disease IV stage 4. right chest permacath, HD dependent (T, TH, S), 5. Blurry vision 7. Left leg rash Problems: Assessment/Plan 1. Admit to [facility] due to controlled hypertension for overnight observation 2. Continue antihypertensive medications 3. Nursing education for compliance HPI/ROS Admit Date/Time Admit Date/Time Hx of Present Illness pt was brought from the dialysis center by paramedics with complaints of high blood pressure and blurry vision. Patient reported changes in his vision for a month and denied chest pain. Reported pain in left hypochondrial area 3-4/10 before meals. Pain decreases to 0 after the meal. Also has left wright rash that he was treated with clobethazole cream, still itching and bother pt. ROS Constitutional: nausea Eyes: no complaints, other (blurry vision), visual change ENT: no complaints Respiratory: no complaints Cardiovascular: no complaints (stomach), other (high BP) Gastrointestinal: pain Musculoskeletal: no complaints Skin: no complaints, skin lesions Neurologic: no complaints Endocrine: dry skin Lymphatic: no complaints Psychological: no complaints PMH/Family/Social Past Medical History Medical History: high cholesterol, hypertension, renal disease, other (skin lesions) Past Surgical History left thumb surgery and right chest permacath Family History Significant Family History: no pertinent family hx Social History Alcohol Use: rarely Smoking Status: Never smoker Drug Use: none Exam/Review of Systems Vital Signs Vitals Vital Signs Date Time Temp Pulse Resp B/P Pulse Ox O2 Delivery O2 Flow Rate FiO2 10/25/16 14:36 98.2 100 18 151/84 Room Air 10/25/16 10:15 99 Exam Constitutional: alert, oriented, well developed Psych: no complaints Head: normocephalic Eyes: nl conjunctiva ENMT: nl external ears & nose Neck: supple Respiratory: clear to auscultation Cardiovascular: regular rate and rhythm Gastrointestinal: nl liver, spleen, soft Genitourinary - Male: nl penis Musculoskeletal: nl extremities to inspection Extremities: normal pulses Neurological: ROOM WORKER II-XII intact, nl mental status, nl speech Skin: rash or lesions (left leg) Lymph: nl lymph nodes Labs Result Diagram: 10/24/16 1405 10/24/16 1405 Medications Medications Current Medications Acetaminophen (Tylenol Tab) 650 mg Q6H PRN PO PAIN LEVEL 1-3 OR FEVER; Start at 14:00 Docusate Sodium (Colace) 100 mg Q12H PRN PO CONSTIPATION; Start 10/25/16 at 14: 00 Pantoprazole (Protonix Tab) 40 mg DAILY@06 PO ; Start 10/26/16 at 06:00 Clobetasol Propionate (Temovate 0.05% Cr) 1 applic Q8 TOP ; Start 10/25/16 at 14 :00 Clonidine (Catapres) 0.2 mg Q6 PRN PO for SBP above 160; Start 10/25/16 at 14: 30 RONDA VILLEGAS Oct 25, 2016 16:41
[2016-10-25 17:25] VITALS: Ht 170.2 cm; Wt 54.8 kg
[2016-10-25 17:26] VITALS: BP 145/94; PULSE 78; RESP 20
[2016-10-25] MEDS ORDERED: ONDANSETRON 4 MG INJ IV PRN (18:00)
[2016-10-25 20:00] VITALS: PULSE 63
[2016-10-25 20:07] VITALS: BP 170/93; RESP 16
[2016-10-25] MEDS: FLUOCINONIDE 0.05% 15 GM CR TOP SCH (20:52)
[2016-10-25] MEDS: VITAMIN A & D 5 GM OINT PACKET TOP SCH (20:52)
[2016-10-25] MEDS: DOCUSATE SODIUM 100 MG CAP PO SCH (20:52)
[2016-10-25] MEDS: LOSARTAN 50 MG TAB PO SCH (20:53)
[2016-10-25] MEDS: CALCIUM ACETATE 667 MG CAP PO SCH (20:54)
--- NOTE | 2016-10-25 21:02 | CONS ---
DATE OF ADMISSION: 10/24/2016 DATE OF CONSULTATION: 10/25/2016 TYPE OF CONSULTATION: Cardiology. REASON FOR CONSULTATION: Hypertension. REQUESTING PHYSICIAN: Jossue Wahl MD. HISTORY OF PRESENT ILLNESS: Mr. Medina is a 51-year-old male with a history of congestive heart fail ure with diastolic dysfunction by echo in August 2016, hypertension, chronic kidney disease - now rec ently started on hemodialysis, chest pain, recent non-ST elevation myocardial infarction - status po st a left heart catheterization in August 2016 revealing no significant obstructive disease, who init ially presented with complaints of uncontrolled systolic blood pressures, mild abdominal discomfort. Upon arrival, temperature of 98.8, blood pressure markedly elevated at 247/123, pulse 85, respirat ory rate 18, saturating 100% on room air. The patient's labs revealed a white count of 8.9, hemoglo bin 14.5, platelet count 262. INR of 0.98. Sodium 136, potassium 4.2, creatinine 5.1, BUN of 14. Troponin negative x3. Lipase of 336, albumin 5.3. INR 0.98. The patient underwent a head CT revea ling unremarkable noncontrast head CT of the brain. The patient had abdominopelvic CT revealing no acute pathology of abdomen and pelvis, a stool-filled large bowel, atrophic kidneys, and a chest x-r ay that had revealed no evidence of acute cardiopulmonary abnormalities. The patient's electrocardi ogram revealed a normal sinus rhythm, at a rate of 70, with borderline right axis deviation, left ve ntricular hypertrophy by voltage criteria, secondary repolarization abnormalities in lateral leads. The patient was subsequently admitted to the floor, and since admit to the floor, has had some down -trending of systolic blood pressure down to 140s to 150s systolic. The patient, at this time, jade es chest pain, shortness of breath. PAST MEDICAL HISTORY: As above in HPI. MEDICATIONS CURRENTLY IN HOSPITAL 1. Aspirin 325 mg daily. 2. Procardia-XL 60 mg daily. 3. Protonix 40 mg daily. 4. Hydralazine 100 mg q.8. 5. Carvedilol 12.5 mg p.o. b.i.d. 6. Cozaar 50 mg b.i.d. 7. PhosLo. 8. Zofran. 9. Vitamin A and D. 10. Clonidine p.r.n. 11. Tylenol. 12. Colace. ALLERGIES: NO KNOWN DRUG ALLERGIES. SOCIAL HISTORY: No tobacco, EtOH or illicit drug use. FAMILY HISTORY: No history of sudden cardiac or early CAD. REVIEW OF SYSTEMS As above in HPI: CONSTITUTIONAL: No fevers, chills. PULMONARY: No current shortness of breath. CARDIOVASCULAR: No current chest pain. Uncontrolled systolic blood pressure. GASTROINTESTINAL: Abdominal discomfort. GENITOURINARY: End-stage renal disease - on hemodialysis. PSYCHIATRIC: No documented psychiatric history. PHYSICAL EXAMINATION VITAL SIGNS: Temperature 98.2, blood pressure 145/94, pulse 78, respiratory rate 20, saturating 100 %. GENERAL: The patient is alert, awake, complaining of mild abdominal discomfort. NECK: JVP approximately 9 cm of water. CHEST: Fair movement throughout with mildly decreased breath sounds at the bases bilaterally. HEART: Regular rate and rhythm. Normal S1, S2. I/ systolic murmur. Nondisplaced PMI. ABDOMEN: Positive bowel sounds, soft, mild diffuse tenderness to palpation. EXTREMITIES: No pitting edema. Difficult to palpate distal pulses bilaterally, posterior tibial. LABORATORIES: As above in HPI, since admit patient had a 2nd troponin return negative; 2 negative t roponins, and a lipase returning at 336. IMAGING STUDIES: As above in HPI. No further imaging studies for my review at this time. ELECTROCARDIOGRAM: As above in HPI. No further electrocardiograms for my review at this time. IMPRESSION 1. Hypertensive urgency/emergency, slowly down-trending on oral antihypertensives. 2. Abnormal electrocardiogram, assess for acute coronary syndrome with negative troponins x2 and a recent left heart catheterization relieving no significant obstructive coronary artery disease. 3. History of recent non-ST elevation myocardial infarction with heart catheterization revealing no significant obstructive coronary artery disease, August 2016. 4. End-stage renal disease, now on hemodialysis. 5. Abdominal pain, with abdominal CT revealing stool. RECOMMENDATIONS 1. At this time, would maintain patient on telemetry monitoring to follow rhythm and rate control c losely. 2. Would complete the patient's rule out for myocardial infarction to ensure that the patient's EKG abnormalities are chronic in nature and not due to any new recent acute coronary syndrome. 3. Continue the patient's current aspirin for prophylaxis against cardiovascular events. 4. Continue the patient's current antihypertensives with hydralazine, Carvedilol, Cozaar and Procar paradise, with possible further need to uptitrate the patient's Procardia and her carvedilol to improve h er overall systolic blood pressure control. 5. Check a fasting lipid panel for general risk stratification. 6. Consider GI evaluation of abdominal pain. Thank you for allowing me to take part in the care of this patient. I will continue to follow along very closely with you, as recommendations to made as the patient progresses through his inpatient h ospital clinical course. Dictated By: MATEO CRUZ/GUSTAVO Conf#: [id number] DID#: [id number] CC: JOSSUE WAHL MD;*EndCC*
[2016-10-26] VITALS (22 sets, daily range): BP systolic 90–185; BP diastolic 56–93; PULSE 37–73; RESP 16–20
[2016-10-26 01:50] LABS: CREATINE KINASE 88 IU/L (23-200)
[2016-10-26 02:03] LABS: CK-MB 0.61 ng/ml (0.0-2.4); TROPONIN-I < 0.012 ng/ml (0.00-0.12)
[2016-10-26] MEDS: PANTOPRAZOLE (EC) 40 MG TAB PO SCH (06:19)
[2016-10-26] MEDS: CLOBETASOL 0.05% 15 GM CR TOP SCH ×3 (06:20→22:48)
[2016-10-26 08:16] LABS: ADD SCAN DIFF NO
[2016-10-26 08:18] LABS: BASOPHILS % 0.5 % (0.0-2.0); EOSINOPHILS # 0.2 10^3/ul (0.0-0.5); HEMOGLOBIN 12.3 g/dl (14.0-18.0); LYMPHOCYTES # 1.6 10^3/ul (0.8-2.9); LYMPHOCYTES % 20.5 % (15.0-51.0); MEAN CORPUSCULAR HEMOGLOBIN 30.9 pg (29.0-33.0); MEAN CORPUSCULAR HGB CONC 32.4 g/dl (32.0-37.0); MEAN CORPUSCULAR VOLUME 95.5 fl (82.0-101.0); MEAN PLATELET VOLUME 9.3 fl (7.4-10.4); MONOCYTE # 0.8 10^3/ul (0.3-0.9); MONOCYTES % 10.2 % (0.0-11.0); NEUTROPHIL # 5.2 10^3/ul (1.6-7.5); NEUTROPHILS % 65.2 % (39.0-77.0); PLATELET COUNT 214 10^3/UL (140-415); RED BLOOD COUNT 3.98 10^6/ul (4.70-6.10); RED CELL DISTRIBUTION WIDTH 14.1 % (11.5-14.5); WHITE BLOOD COUNT 7.9 10^3/ul (4.8-10.8)
[2016-10-26] MEDS: LOSARTAN 50 MG TAB PO SCH ×2 (08:25→22:45)
[2016-10-26] MEDS: NIFEdipine (XL) 60 MG TAB PO SCH (08:26)
[2016-10-26] MEDS: DOCUSATE SODIUM 100 MG CAP PO SCH ×3 (08:28→22:46)
[2016-10-26] MEDS: CALCIUM ACETATE 667 MG CAP PO SCH ×3 (08:28→17:59)
[2016-10-26] MEDS: ASPIRIN 325 MG TAB PO SCH (08:29)
[2016-10-26] MEDS: POLYETHYLENE GLYCOL 17 GM PACKET PO SCH (08:30)
[2016-10-26] MEDS: FLUOCINONIDE 0.05% 15 GM CR TOP SCH ×2 (08:30→22:49)
[2016-10-26] MEDS: VITAMIN A & D 5 GM OINT PACKET TOP SCH (08:30)
[2016-10-26] MEDS: FOLIC ACID 1 MG TAB PO SCH (08:30)
[2016-10-26 08:35] LABS: CREATINE KINASE 84 IU/L (23-200)
[2016-10-26 08:40] LABS: ALBUMIN 3.6 g/dl (3.3-4.9); POTASSIUM 5.3 mmol/L (3.5-5.1)
[2016-10-26 08:42] LABS: CREATININE 9.57 mg/dl (0.61-1.24)
[2016-10-26 08:43] LABS: ALBUMIN/GLOBULIN RATIO 1.12; CALCIUM 7.9 mg/dl (8.4-10.2); PHOSPHORUS 5.3 mg/dl (2.5-4.9); TOTAL PROTEIN 6.8 g/dl (6.1-8.1)
[2016-10-26 08:49] LABS: CK-MB 0.73 ng/ml (0.0-2.4); TROPONIN-I < 0.012 ng/ml (0.00-0.12)
[2016-10-26 08:51] LABS: CHOL/HDL RATIO 2.6 RATIO
--- NOTE | 2016-10-26 14:02 | PN ---
Date/Time of Note Date/Time of Note DATE: 10/26/16 TIME: 14:00 Assessment/Plan VTE Prophylaxis VTE Prophylaxis Intervention: ambulation Lines/Catheters IV Catheter Type (from Nrs): Central Line Central line still needed: Yes Urinary Cath still in place: No Assessment/Plan Chief Complaint/Hosp Course 1. Hypertensive crisis, probably due to non-compliance 2. Abdominal pain 3. End of stage renal disease IV stage 4. right chest permacath, HD dependent (T, TH, S), 5. Blurry vision 7. Left leg rash Problems: Assessment/Plan 1. continue HD 2. Continue antihypertensive meds Subjective 24 Hr Interval Summary Constitutional: improved, no complaints Cardiovascular: no complaints Gastrointestinal: no complaints Genitourinary: no complaints Musculoskeletal: no complaints Exam/Review of Systems Vital Signs Vitals Vital Signs Date Time Temp Pulse Resp B/P Pulse Ox O2 Delivery O2 Flow Rate FiO2 10/26/16 13:19 64 18 10/26/16 07:29 98.1 149/84 99 10/25/16 17:26 Room Air Intake and Output 10/25/16 10/25/16 10/26/16 15:00 23:00 07:00 Intake Total 300 ml Balance 300 ml Exam Constitutional: alert, oriented Neck: supple Respiratory: clear to auscultation Cardiovascular: regular rate and rhythm Gastrointestinal: soft Results Result Diagram: 10/26/16 0735 10/26/16 0735 Results 24 hrs Laboratory Tests Test 10/26/16 01:29 10/26/16 07:35 Creatine Kinase 88 84 Creatine Kinase Index 0.7 0.9 Creatinine Kinase MB (Mass) 0.61 0.73 Troponin I < 0.012 < 0.012 White Blood Count 7.9 Red Blood Count 3.98 L Hemoglobin 12.3 L Hematocrit 38.0 L Mean Corpuscular Volume 95.5 Mean Corpuscular Hemoglobin 30.9 Mean Corpuscular Hemoglobin Concent 32.4 Red Cell Distribution Width 14.1 Platelet Count 214 Mean Platelet Volume 9.3 Neutrophils % 65.2 Lymphocytes % 20.5 Monocytes % 10.2 Eosinophils % 3.0 Basophils % 0.5 Nucleated Red Blood Cells % 0.0 Neutrophils # 5.2 Lymphocytes # 1.6 Monocytes # 0.8 Eosinophils # 0.2 Basophils # 0.0 Nucleated Red Blood Cells # 0.0 Sodium Level 133 L Potassium Level 5.3 H Chloride Level 99 Carbon Dioxide Level 22 Anion Gap 17 H Blood Urea Nitrogen 41 #H Creatinine 9.57 #H Glucose Level 96 # Calcium Level 7.9 L Phosphorus Level 5.3 H Total Bilirubin 0.0 L Direct Bilirubin 0.00 Indirect Bilirubin 0.0 Aspartate Amino Transf (AST/SGOT) 23 Alanine Aminotransferase (ALT/SGPT) 27 Alkaline Phosphatase 90 Total Protein 6.8 # Albumin 3.6 # Globulin 3.20 Albumin/Globulin Ratio 1.12 Triglycerides Level 109 Cholesterol Level 132 LDL Cholesterol, Calculated 61 HDL Cholesterol 49 Cholesterol/HDL Ratio 2.6 Medications Medications Current Medications Acetaminophen (Tylenol Tab) 650 mg Q6H PRN PO PAIN LEVEL 1-3 OR FEVER; Start at 14:00 Docusate Sodium (Colace) 100 mg Q12H PRN PO CONSTIPATION; Start 10/25/16 at 14: 00 Pantoprazole (Protonix Tab) 40 mg DAILY@06 PO Last administered on 10/26/16 06 :19; Admin Dose 40 MG; Start 10/26/16 at 06:00 Clobetasol Propionate (Temovate 0.05% Cr) 1 applic Q8 TOP Last administered on 10/26/16 06:20; Admin Dose 1 APPLIC; Start 10/25/16 at 14:00 Clonidine (Catapres) 0.2 mg Q6 PRN PO for SBP above 160 Last administered on 00:06; Admin Dose 0.2 MG; Start 10/25/16 at 14:30 Aspirin (Aspirin) 325 mg DAILY PO Last administered on 10/26/16 08:29; Admin Dose 325 MG; Start 10/26/16 at 09:00 Carvedilol (Coreg) 12.5 mg BID PO Last administered on 10/26/16 08:29; Admin Dose 12.5 MG; Start 10/25/16 at 21:00 Folic Acid (Folic Acid) 1 mg DAILY PO Last administered on 10/26/16 08:30; Admin Dose 1 MG; Start 10/26/16 at 09:00 Hydralazine HCl (Apresoline) 100 mg Q8 PO Last administered on 10/26/16 06:19 ; Admin Dose 100 MG; Start 10/25/16 at 22:00 Losartan Potassium (Cozaar) 50 mg BID PO Last administered on 10/25/16 20:53; Admin Dose 50 MG; Start 10/25/16 at 21:00 Nifedipine (Procardia Xl) 60 mg DAILY PO ; Start 10/26/16 at 09:00 Ondansetron HCl (Zofran Inj) 4 mg Q4H PRN IV NAUSEA AND/OR VOMITING; Start at 18:00 Fluocinonide (Lidex 0.05% Cr) 1 applic BID TOP Last administered on 10/26/16 08:30; Admin Dose 1 APPLIC; Start 10/25/16 at 21:00 Vitamin A/Vitamin D (Vitamin A & D Oint) 1 applic DAILY TOP Last administered on 10/26/16 08:30; Admin Dose 1 APPLIC; Start 10/25/16 at 18:00 Polyethylene Glycol (Miralax) 17 gm DAILY PO Last administered on 10/26/16 08: 30; Admin Dose 17 GM; Start 10/26/16 at 09:00 Docusate Sodium (Colace) 100 mg TID PO Last administered on 10/26/16 08:28; Admin Dose 100 MG; Start 10/25/16 at 21:00 RONDA VILLEGAS Oct 26, 2016 14:02
--- NOTE | 2016-10-26 16:05 | CONS ---
Date/Time of Note Date/Time of Note DATE: 10/26/16 TIME: 16:00 Assessment/Plan Assessment/Plan Chief Complaint/Hosp Course IMPRESSION 1. Hypertensive urgency/emergency, slowly down-trending on oral antihypertensives.-improved on oral anti-hypertensives 2. Abnormal electrocardiogram, assess for acute coronary syndrome with negative troponins x2 and a recent left heart catheterization relieving no significant obstructive coronary artery disease.-Trop negative x 3 3. History of recent non-ST elevation myocardial infarction with heart catheterization revealing no significant obstructive coronary artery disease, August 2016. 4. End-stage renal disease, now on hemodialysis. 5. Abdominal pain, with abdominal CT revealing stool. 6.Bradycardia-while on HD to 30's with tele c/w short episode of junctional rhythm Recc: -Tele -serial ecg's -Continue procardia/losartan/hydralazine -Decrease dose of BB given bradycardia during HD -Continue asa -HD for volume removal Problems: Consultation Date/Type/Reason Admit Date/Time Oct 24, 2016 at 20:28 Initial Consult Date 10/25/2016 Type of Consultation: Cardiology Reason for Consultation HTN/bradycardia Referring Provider: LUCAS WAHL Exam/Review of Systems Vital Signs Vitals Vital Signs Date Time Temp Pulse Resp B/P Pulse Ox O2 Delivery O2 Flow Rate FiO2 10/26/16 15:22 98.1 66 19 127/73 99 10/26/16 14:50 Room Air Intake and Output 10/25/16 10/25/16 10/26/16 15:00 23:00 07:00 Intake Total 300 ml Balance 300 ml Exam Review of Systems: CONSTITUTIONAL: No fevers, chills. PULMONARY: No sob CARDIOVASCULAR: No chest pain/palpitations GASTROINTESTINAL: No nausea/vomiting. GENITOURINARY: No hematuria/dysuria. MUSCULOSKELETAL: No myagias/arthalgias. PSYCHIATRIC: The patient denies depression. NEUROLOGIC: No weakness Constitutional: alert, oriented Psych: no complaints Head: normocephalic ENMT: mucosa pink and moist Neck: jvd (9 cm water), supple Respiratory: diminished breath sounds (at bases/B) Cardiovascular: regular rate and rhythm Gastrointestinal: non-tender, soft Musculoskeletal: muscle tone (normal) Extremities: edema (none) Results Result Diagram: 10/26/16 0735 10/26/16 0735 Results 24 hrs Laboratory Tests Test 10/26/16 01:29 10/26/16 07:35 Creatine Kinase 88 84 Creatine Kinase Index 0.7 0.9 Creatinine Kinase MB (Mass) 0.61 0.73 Troponin I < 0.012 < 0.012 White Blood Count 7.9 Red Blood Count 3.98 L Hemoglobin 12.3 L Hematocrit 38.0 L Mean Corpuscular Volume 95.5 Mean Corpuscular Hemoglobin 30.9 Mean Corpuscular Hemoglobin Concent 32.4 Red Cell Distribution Width 14.1 Platelet Count 214 Mean Platelet Volume 9.3 Neutrophils % 65.2 Lymphocytes % 20.5 Monocytes % 10.2 Eosinophils % 3.0 Basophils % 0.5 Nucleated Red Blood Cells % 0.0 Neutrophils # 5.2 Lymphocytes # 1.6 Monocytes # 0.8 Eosinophils # 0.2 Basophils # 0.0 Nucleated Red Blood Cells # 0.0 Sodium Level 133 L Potassium Level 5.3 H Chloride Level 99 Carbon Dioxide Level 22 Anion Gap 17 H Blood Urea Nitrogen 41 #H Creatinine 9.57 #H Glucose Level 96 # Calcium Level 7.9 L Phosphorus Level 5.3 H Total Bilirubin 0.0 L Direct Bilirubin 0.00 Indirect Bilirubin 0.0 Aspartate Amino Transf (AST/SGOT) 23 Alanine Aminotransferase (ALT/SGPT) 27 Alkaline Phosphatase 90 Total Protein 6.8 # Albumin 3.6 # Globulin 3.20 Albumin/Globulin Ratio 1.12 Triglycerides Level 109 Cholesterol Level 132 LDL Cholesterol, Calculated 61 HDL Cholesterol 49 Cholesterol/HDL Ratio 2.6 Medications Medications Current Medications Acetaminophen (Tylenol Tab) 650 mg Q6H PRN PO PAIN LEVEL 1-3 OR FEVER; Start at 14:00 Docusate Sodium (Colace) 100 mg Q12H PRN PO CONSTIPATION; Start 10/25/16 at 14: 00 Pantoprazole (Protonix Tab) 40 mg DAILY@06 PO Last administered on 10/26/16 06 :19; Admin Dose 40 MG; Start 10/26/16 at 06:00 Clobetasol Propionate (Temovate 0.05% Cr) 1 applic Q8 TOP Last administered on 10/26/16 14:54; Admin Dose 1 APPLIC; Start 10/25/16 at 14:00 Clonidine (Catapres) 0.2 mg Q6 PRN PO for SBP above 160 Last administered on 00:06; Admin Dose 0.2 MG; Start 10/25/16 at 14:30 Aspirin (Aspirin) 325 mg DAILY PO Last administered on 10/26/16 08:29; Admin Dose 325 MG; Start 10/26/16 at 09:00 Carvedilol (Coreg) 12.5 mg BID PO Last administered on 10/26/16 08:29; Admin Dose 12.5 MG; Start 10/25/16 at 21:00 Folic Acid (Folic Acid) 1 mg DAILY PO Last administered on 10/26/16 08:30; Admin Dose 1 MG; Start 10/26/16 at 09:00 Hydralazine HCl (Apresoline) 100 mg Q8 PO Last administered on 10/26/16 14:53 ; Admin Dose 100 MG; Start 10/25/16 at 22:00 Losartan Potassium (Cozaar) 50 mg BID PO Last administered on 10/25/16 20:53; Admin Dose 50 MG; Start 10/25/16 at 21:00 Nifedipine (Procardia Xl) 60 mg DAILY PO ; Start 10/26/16 at 09:00 Ondansetron HCl (Zofran Inj) 4 mg Q4H PRN IV NAUSEA AND/OR VOMITING; Start at 18:00 Fluocinonide (Lidex 0.05% Cr) 1 applic BID TOP Last administered on 10/26/16 08:30; Admin Dose 1 APPLIC; Start 10/25/16 at 21:00 Vitamin A/Vitamin D (Vitamin A & D Oint) 1 applic DAILY TOP Last administered on 10/26/16 08:30; Admin Dose 1 APPLIC; Start 10/25/16 at 18:00 Polyethylene Glycol (Miralax) 17 gm DAILY PO Last administered on 10/26/16 08: 30; Admin Dose 17 GM; Start 10/26/16 at 09:00 Docusate Sodium (Colace) 100 mg TID PO Last administered on 10/26/16 08:28; Admin Dose 100 MG; Start 10/25/16 at 21:00 MATEO HODGSON Oct 26, 2016 16:05
[2016-10-27] VITALS (12 sets, daily range): BP systolic 112–153; BP diastolic 59–82; PULSE 56–77; RESP 17–20
[2016-10-27 06:08] LABS: ADD SCAN DIFF NO
[2016-10-27 06:15] LABS: BASOPHILS % 0.4 % (0.0-2.0); EOSINOPHILS # 0.2 10^3/ul (0.0-0.5); EOSINOPHILS % 2.7 % (0.0-7.0); HEMOGLOBIN 11.8 g/dl (14.0-18.0); LYMPHOCYTES % 23.8 % (15.0-51.0); MEAN CORPUSCULAR HEMOGLOBIN 30.3 pg (29.0-33.0); MEAN CORPUSCULAR HGB CONC 31.9 g/dl (32.0-37.0); MEAN CORPUSCULAR VOLUME 94.9 fl (82.0-101.0); MEAN PLATELET VOLUME 9.5 fl (7.4-10.4); MONOCYTE # 0.9 10^3/ul (0.3-0.9); MONOCYTES % 10.7 % (0.0-11.0); NEUTROPHIL # 5.3 10^3/ul (1.6-7.5); NEUTROPHILS % 61.8 % (39.0-77.0); PLATELET COUNT 154 10^3/UL (140-415); RED CELL DISTRIBUTION WIDTH 13.9 % (11.5-14.5); WHITE BLOOD COUNT 8.5 10^3/ul (4.8-10.8)
[2016-10-27 06:34] LABS: POTASSIUM 4.2 mmol/L (3.5-5.1)
[2016-10-27 06:37] LABS: CALCIUM 7.7 mg/dl (8.4-10.2); CREATININE 8.27 mg/dl (0.61-1.24)
[2016-10-27] MEDS: PANTOPRAZOLE (EC) 40 MG TAB PO SCH (06:47)
[2016-10-27] MEDS: CLOBETASOL 0.05% 15 GM CR TOP SCH ×2 (06:48→13:40)
[2016-10-27] MEDS: CALCIUM ACETATE 667 MG CAP PO SCH ×3 (09:00→17:32)
[2016-10-27] MEDS: DOCUSATE SODIUM 100 MG CAP PO SCH ×2 (09:01→12:16)
[2016-10-27] MEDS: LOSARTAN 50 MG TAB PO SCH (09:01)
[2016-10-27] MEDS: POLYETHYLENE GLYCOL 17 GM PACKET PO SCH (09:02)
[2016-10-27] MEDS: FOLIC ACID 1 MG TAB PO SCH (09:02)
[2016-10-27] MEDS: NIFEdipine (XL) 60 MG TAB PO SCH (09:02)
[2016-10-27] MEDS: VITAMIN A & D 5 GM OINT PACKET TOP SCH (09:03)
[2016-10-27] MEDS: ASPIRIN 325 MG TAB PO SCH (09:03)
[2016-10-27] MEDS: FLUOCINONIDE 0.05% 15 GM CR TOP SCH (09:04)
--- NOTE | 2016-10-27 15:19 | CONS ---
Date/Time of Note Date/Time of Note DATE: 10/27/16 TIME: 15:16 Assessment/Plan Assessment/Plan Chief Complaint/Hosp Course IMPRESSION 1. Hypertensive urgency/emergency, slowly down-trending on oral antihypertensives.-improved on oral anti-hypertensives 2. Abnormal electrocardiogram, assess for acute coronary syndrome with negative troponins x2 and a recent left heart catheterization relieving no significant obstructive coronary artery disease.-Trop negative x 3 3. History of recent non-ST elevation myocardial infarction with heart catheterization revealing no significant obstructive coronary artery disease, August 2016. 4. End-stage renal disease, now on hemodialysis. 5. Abdominal pain, with abdominal CT revealing stool. 6.Bradycardia-while on HD to 30's with tele c/w short episode of junctional rhythm. No recurrence on lower dose of BB Recc: -Tele -serial ecg's -Continue procardia/losartan/hydralazine and similar dose of BB -Continue asa -HD for volume removal Problems: Consultation Date/Type/Reason Admit Date/Time Oct 24, 2016 at 20:28 Initial Consult Date 10/25/2016 Type of Consultation: Cardiology Reason for Consultation Cardiac arrythmia Referring Provider: LUCAS WAHL MD Exam/Review of Systems Vital Signs Vitals Vital Signs Date Time Temp Pulse Resp B/P Pulse Ox O2 Delivery O2 Flow Rate FiO2 10/27/16 12:22 97.9 66 17 112/59 99 10/26/16 14:50 Room Air Intake and Output 10/26/16 10/26/16 10/27/16 15:00 23:00 07:00 Intake Total 500 ml 1100 ml 700 ml Output Total 2700 ml Balance -2200 ml 1100 ml 700 ml Exam Review of Systems: CONSTITUTIONAL: No fevers, chills. PULMONARY: No sob CARDIOVASCULAR: No chest pain/palpitations GASTROINTESTINAL: No nausea/vomiting. GENITOURINARY: No hematuria/dysuria. MUSCULOSKELETAL: No myagias/arthalgias. PSYCHIATRIC: The patient denies depression. NEUROLOGIC: No weakness Constitutional: alert, oriented Psych: no complaints Head: normocephalic ENMT: mucosa pink and moist Neck: jvd, supple Respiratory: diminished breath sounds Cardiovascular: regular rate and rhythm Gastrointestinal: non-tender, soft Musculoskeletal: muscle tone (normal) Extremities: edema (none) Neurological: other (No focal deficits) Results Result Diagram: 10/27/16 0540 10/27/16 0540 Results 24 hrs Laboratory Tests Test 10/26/16 18:30 10/27/16 05:40 Thyroid Stimulating Hormone (TSH) 0.711 White Blood Count 8.5 Red Blood Count 3.90 L Hemoglobin 11.8 L Hematocrit 37.0 L Mean Corpuscular Volume 94.9 Mean Corpuscular Hemoglobin 30.3 Mean Corpuscular Hemoglobin Concent 31.9 L Red Cell Distribution Width 13.9 Platelet Count 154 # Mean Platelet Volume 9.5 Neutrophils % 61.8 Lymphocytes % 23.8 Monocytes % 10.7 Eosinophils % 2.7 Basophils % 0.4 Nucleated Red Blood Cells % 0.0 Neutrophils # 5.3 Lymphocytes # 2.0 Monocytes # 0.9 Eosinophils # 0.2 Basophils # 0.0 Nucleated Red Blood Cells # 0.0 Sodium Level 130 L Potassium Level 4.2 Chloride Level 93 L Carbon Dioxide Level 24 Anion Gap 17 H Blood Urea Nitrogen 40 H Creatinine 8.27 H Glucose Level 110 Calcium Level 7.7 L Medications Medications Current Medications Acetaminophen (Tylenol Tab) 650 mg Q6H PRN PO PAIN LEVEL 1-3 OR FEVER; Start at 14:00 Docusate Sodium (Colace) 100 mg Q12H PRN PO CONSTIPATION; Start 10/25/16 at 14: 00 Pantoprazole (Protonix Tab) 40 mg DAILY@06 PO Last administered on 10/27/16 06 :47; Admin Dose 40 MG; Start 10/26/16 at 06:00 Clobetasol Propionate (Temovate 0.05% Cr) 1 applic Q8 TOP Last administered on 10/27/16 13:40; Admin Dose 1 APPLIC; Start 10/25/16 at 14:00 Clonidine (Catapres) 0.2 mg Q6 PRN PO for SBP above 160 Last administered on 00:06; Admin Dose 0.2 MG; Start 10/25/16 at 14:30 Aspirin (Aspirin) 325 mg DAILY PO Last administered on 10/27/16 09:03; Admin Dose 325 MG; Start 10/26/16 at 09:00 Folic Acid (Folic Acid) 1 mg DAILY PO Last administered on 10/27/16 09:02; Admin Dose 1 MG; Start 10/26/16 at 09:00 Hydralazine HCl (Apresoline) 100 mg Q8 PO Last administered on 10/27/16 13:40 ; Admin Dose 100 MG; Start 10/25/16 at 22:00 Losartan Potassium (Cozaar) 50 mg BID PO Last administered on 10/27/16 09:01; Admin Dose 50 MG; Start 10/25/16 at 21:00 Nifedipine (Procardia Xl) 60 mg DAILY PO Last administered on 10/27/16 09:02; Admin Dose 60 MG; Start 10/26/16 at 09:00 Ondansetron HCl (Zofran Inj) 4 mg Q4H PRN IV NAUSEA AND/OR VOMITING; Start at 18:00 Fluocinonide (Lidex 0.05% Cr) 1 applic BID TOP Last administered on 10/27/16 09:04; Admin Dose 1 APPLIC; Start 10/25/16 at 21:00 Vitamin A/Vitamin D (Vitamin A & D Oint) 1 applic DAILY TOP Last administered on 10/27/16 09:03; Admin Dose 1 APPLIC; Start 10/25/16 at 18:00 Polyethylene Glycol (Miralax) 17 gm DAILY PO Last administered on 10/27/16 09: 02; Admin Dose 17 GM; Start 10/26/16 at 09:00 Docusate Sodium (Colace) 100 mg TID PO Last administered on 10/27/16 12:16; Admin Dose 100 MG; Start 10/25/16 at 21:00 Carvedilol (Coreg) 6.25 mg BID PO Last administered on 10/27/16 09:01; Admin Dose 6.25 MG; Start 10/26/16 at 21:00 MATEO HODGSON Oct 27, 2016 15:19
--- NOTE | 2016-10-27 17:57 | PDOCDIS ---
Discharge Instructions CONDITION Patient Condition: Good HOME CARE INSTRUCTIONS: Special Diet: renal ACTIVITY: Activity Restrictions: Slowly Increase Activity FOLLOW UP/APPOINTMENTS Appointments f/u pcp [address] krafts[address] wahl 2 wks LUCAS WAHL MD Oct 27, 2016 17:57
[2016-10-27] MEDS ORDERED: FLU0530 TOP (18:00)
[2016-10-27] MEDS ORDERED: LOSA50TA6 PO (18:00)
[2016-10-27] MEDS ORDERED: HYDR100T7 PO (18:00)
[2016-10-27] MEDS ORDERED: POLY17PO6 PO (18:00)
[2016-10-27] MEDS ORDERED: CARV6.2579 PO (18:00)
[2016-10-27] MEDS ORDERED: DOCU-216 PO (18:00)
[2016-10-27] MEDS ORDERED: PANT40TA4 PO (18:00)
[2016-10-27] MEDS ORDERED: NIFE60TA7 PO (18:00)
--- NOTE | 2016-10-27 18:02 | PN ---
Date/Time of Note Date/Time of Note DATE: 10/27/16 TIME: 18:01 Assessment/Plan VTE Prophylaxis VTE Prophylaxis Intervention: other Lines/Catheters IV Catheter Type (from Nrsg): Central Line Central line still needed: Yes Urinary Cath still in place: No Assessment/Plan Chief Complaint/Hosp Course htn esrd constipation plan home Problems: Subjective 24 Hr Interval Summary Gastrointestinal: no complaints Genitourinary: no complaints Exam/Review of Systems Vital Signs Vitals Vital Signs Date Time Temp Pulse Resp B/P Pulse Ox O2 Delivery O2 Flow Rate FiO2 10/27/16 16:13 97.5 62 17 129/74 99 10/26/16 14:50 Room Air Intake and Output 10/26/16 10/26/16 10/27/16 15:00 23:00 07:00 Intake Total 500 ml 1100 ml 700 ml Output Total 2700 ml Balance -2200 ml 1100 ml 700 ml Exam Neck: supple Respiratory: clear to auscultation Cardiovascular: regular rate and rhythm Gastrointestinal: soft Results Result Diagram: 10/27/16 0540 10/27/16 0540 Results 24 hrs Laboratory Tests Test 10/26/16 18:30 10/27/16 05:40 Thyroid Stimulating Hormone (TSH) 0.711 White Blood Count 8.5 Red Blood Count 3.90 L Hemoglobin 11.8 L Hematocrit 37.0 L Mean Corpuscular Volume 94.9 Mean Corpuscular Hemoglobin 30.3 Mean Corpuscular Hemoglobin Concent 31.9 L Red Cell Distribution Width 13.9 Platelet Count 154 # Mean Platelet Volume 9.5 Neutrophils % 61.8 Lymphocytes % 23.8 Monocytes % 10.7 Eosinophils % 2.7 Basophils % 0.4 Nucleated Red Blood Cells % 0.0 Neutrophils # 5.3 Lymphocytes # 2.0 Monocytes # 0.9 Eosinophils # 0.2 Basophils # 0.0 Nucleated Red Blood Cells # 0.0 Sodium Level 130 L Potassium Level 4.2 Chloride Level 93 L Carbon Dioxide Level 24 Anion Gap 17 H Blood Urea Nitrogen 40 H Creatinine 8.27 H Glucose Level 110 Calcium Level 7.7 L Medications Medications Current Medications Acetaminophen (Tylenol Tab) 650 mg Q6H PRN PO PAIN LEVEL 1-3 OR FEVER; Start at 14:00 Docusate Sodium (Colace) 100 mg Q12H PRN PO CONSTIPATION; Start 10/25/16 at 14: 00 Pantoprazole (Protonix Tab) 40 mg DAILY@06 PO Last administered on 10/27/16 06 :47; Admin Dose 40 MG; Start 10/26/16 at 06:00 Clobetasol Propionate (Temovate 0.05% Cr) 1 applic Q8 TOP Last administered on 10/27/16 13:40; Admin Dose 1 APPLIC; Start 10/25/16 at 14:00 Clonidine (Catapres) 0.2 mg Q6 PRN PO for SBP above 160 Last administered on 00:06; Admin Dose 0.2 MG; Start 10/25/16 at 14:30 Aspirin (Aspirin) 325 mg DAILY PO Last administered on 10/27/16 09:03; Admin Dose 325 MG; Start 10/26/16 at 09:00 Folic Acid (Folic Acid) 1 mg DAILY PO Last administered on 10/27/16 09:02; Admin Dose 1 MG; Start 10/26/16 at 09:00 Hydralazine HCl (Apresoline) 100 mg Q8 PO Last administered on 10/27/16 13:40 ; Admin Dose 100 MG; Start 10/25/16 at 22:00 Losartan Potassium (Cozaar) 50 mg BID PO Last administered on 10/27/16 09:01; Admin Dose 50 MG; Start 10/25/16 at 21:00 Nifedipine (Procardia Xl) 60 mg DAILY PO Last administered on 10/27/16 09:02; Admin Dose 60 MG; Start 10/26/16 at 09:00 Ondansetron HCl (Zofran Inj) 4 mg Q4H PRN IV NAUSEA AND/OR VOMITING; Start at 18:00 Fluocinonide (Lidex 0.05% Cr) 1 applic BID TOP Last administered on 10/27/16 09:04; Admin Dose 1 APPLIC; Start 10/25/16 at 21:00 Vitamin A/Vitamin D (Vitamin A & D Oint) 1 applic DAILY TOP Last administered on 10/27/16 09:03; Admin Dose 1 APPLIC; Start 10/25/16 at 18:00 Polyethylene Glycol (Miralax) 17 gm DAILY PO Last administered on 10/27/16 09: 02; Admin Dose 17 GM; Start 10/26/16 at 09:00 Docusate Sodium (Colace) 100 mg TID PO Last administered on 10/27/16 12:16; Admin Dose 100 MG; Start 10/25/16 at 21:00 Carvedilol (Coreg) 6.25 mg BID PO Last administered on 10/27/16 09:01; Admin Dose 6.25 MG; Start 10/26/16 at 21:00 LUCAS WAHL MD Oct 27, 2016 18:02
--- NOTE | 2016-10-28 09:05 | RADRPT ---
PROCEDURE: XR Abdomen. CLINICAL INDICATION: Abdominal pain TECHNIQUE: A single AP view of the abdomen was obtained. COMPARISON: CT abdomen and pelvis dated 10/24/2016 FINDINGS: There is a nonobstructive bowel gas pattern. No abnormal soft tissue calcifications are seen. The visualized portions of the lung bases are clear. The osseous structures are unremarkable. IMPRESSION: Unremarkable abdomen x-ray. RPTAT: HH .Lucy Higgins MD, MD Date Time Electronically viewed and signed by .Lucy Higgins MD, on 10/28/2016 09:05 .G/
--- NOTE | 2016-10-28 15:02 | RADRPT ---
Vent Rate: 67 bpm RR Interval: 0 msec DC Interval: 146 msec QRS Duration: 102 msec QT Interval: 454 msec QTC Interval: 479 msec P-R-T [place]: 50 - 81 - 0 degrees Normal sinus rhythm Left ventricular hypertrophy with repolarization abnormality Abnormal ECG Electronically Signed By: Kraig Back [id number]
--- NOTE | 2016-10-28 17:44 | QN ---
Documentation Comment [id number] LUCAS WAHL MD October 28, 2016 17:44
--- NOTE | 2016-10-29 02:51 | DS ---
DATE OF ADMISSION: 10/24/2016 DATE OF DISCHARGE: 10/27/2016 HOSPITAL COURSE: The patient was admitted with uncontrolled hypertension, abdominal pain, has const ipation, received bowel care. Hemodialysis was done. Was seen in cardiology consultation by Dr. George avery. The patient had a history of coronary angiogram done in the past negative. The patient's dy spepsia is getting better. The patient's blood pressure is well controlled. The patient's electrol ytes are stable. The patient is discharged home. DISCHARGE DIAGNOSES: 1. 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 2. The patient had dyspepsia. 3. Constipation. 4. Anemia. 5. Endstage renal disease. DISCHARGE MEDICATIONS: 1. The patient to continue on Coreg. 2. Lidex ointment for skin dermatitis. 3. MiraLax. 4. Aspirin. 5. PhosLo. 6. Clobetasol 7. Docusate sodium. 8. Hydralazine. 9. Venofer. 10. Losartan. 11. Multiple vitamin. 12. Nifedipine. 13. Nitroglycerin. 14. Protonix. DISCHARGE INSTRUCTIONS: To follow with his outpatient PCP and [facility] and Dr. Denzel michael an outpatient. DISPOSITION: The patient is stable at the time of discharge. Dictated By: LUCAS LEON/GUSTAVO Conf#: [id number] DID#: [id number]
== END 2016-10-27 22:10 | disposition home or self-care (01) | DRG 304 ==
LOC: E/R 16:35 → MS4 20:28
PROVIDERS: ADMIT Internal Medicine Nephrology; ATTEND Internal Medicine Nephrology
DX: I16.1 Hypertensive emergency (principal); N18.6 End stage renal disease; I25.2 Old myocardial infarction; I12.0 Hypertensive chronic kidney disease with stage 5 chronic kidney disease or end stage renal disease; H53.8 Other visual disturbances; K59.00 Constipation, unspecified; D64.9 Anemia, unspecified; R21 Rash and other nonspecific skin eruption; R94.31 Abnormal electrocardiogram [ECG] [EKG]; R00.1 Bradycardia, unspecified; Z99.2 Dependence on renal dialysis; Z91.14 Patient's other noncompliance with medication regimen; Z95.5 Presence of coronary angioplasty implant and graft
CPT/HCPCS: 36415; 70450; 71010; 74000; 74176; 80048; 80053; 80061; 80076; 82550; 82553; 83690; 84100; 84443; 84484; 85025; 85610; 85730; 90935; 93005; 96374; 96375; 96376; J0360

== ENCOUNTER 2016-10-31 16:39 | Emergency (ER) | payer SELFPAY ==
[~2016-10-31] VITALS: Ht 152.4 cm; Wt 58.0 kg
[~2016-10-31 16:39] MED LIST changes: +FLU0530 TOP; +GLYC488L PO; -HYDR-3672 PO; +HYDR100T7 PO; +IRON100V IV; +LOSA50TA6 PO; +NIFE60TA7 PO; +POLY17PO6 PO
[2016-10-31 16:43] VITALS: Ht 152.4 cm; Wt 58.0 kg
--- NOTE | 2016-11-04 13:46 | QN ---
Documentation Comment 51-year-old man complains of abdominal pain 1 month mostly over the right lower quadrant. Medical screening exam was initiated although workup and further evaluation incomplete. Patient left without being seen. No further HPI or physical examination obtained. MUNDO PEREZ MD November 04, 2016 13:45
== END 2016-10-31 16:46 | disposition left against medical advice (07) ==
LOC: E/R 16:39
DX: Z53.21 Procedure and treatment not carried out due to patient leaving prior to being seen by health care provider (principal)

== ENCOUNTER 2016-11-07 15:59 | Emergency (ER) | payer OTHER ==
[~2016-11-07] VITALS: Ht 165.1 cm; Wt 58.0 kg
[2016-11-07 16:01] VITALS: Ht 165.1 cm; Wt 58.0 kg
[2016-11-07] MEDS ORDERED: morphine 4 MG/ML VIAL IV STA (16:35)
[2016-11-07] MEDS ORDERED: SOD CHLORIDE 0.9% 1,000 ML IV STA (16:35)
[2016-11-07] MEDS ORDERED: ONDANSETRON 4 MG INJ IV STA (16:35)
[2016-11-07 17:02] LABS: ADD SCAN DIFF NO
[2016-11-07 17:06] LABS: BASOPHILS % 0.5 % (0.0-2.0); EOSINOPHILS # 0.1 10^3/ul (0.0-0.5); EOSINOPHILS % 1.2 % (0.0-7.0); HEMATOCRIT 36.6 % (42.0-52.0); HEMOGLOBIN 11.9 g/dl (14.0-18.0); LYMPHOCYTES # 1.3 10^3/ul (0.8-2.9); LYMPHOCYTES % 16.8 % (15.0-51.0); MEAN CORPUSCULAR HEMOGLOBIN 30.1 pg (29.0-33.0); MEAN CORPUSCULAR HGB CONC 32.5 g/dl (32.0-37.0); MEAN CORPUSCULAR VOLUME 92.4 fl (82.0-101.0); MONOCYTE # 0.7 10^3/ul (0.3-0.9); MONOCYTES % 9.2 % (0.0-11.0); NEUTROPHIL # 5.4 10^3/ul (1.6-7.5); NEUTROPHILS % 71.9 % (39.0-77.0); PLATELET COUNT 241 10^3/UL (140-415); RED BLOOD COUNT 3.96 10^6/ul (4.70-6.10); RED CELL DISTRIBUTION WIDTH 13.4 % (11.5-14.5); WHITE BLOOD COUNT 7.5 10^3/ul (4.8-10.8)
[2016-11-07 17:20] LABS: ALBUMIN 3.7 g/dl (3.3-4.9); POTASSIUM 3.8 mmol/L (3.5-5.1)
[2016-11-07 17:22] LABS: CREATININE 8.21 mg/dl (0.61-1.24)
[2016-11-07 17:23] LABS: ALBUMIN/GLOBULIN RATIO 1.08; TOTAL PROTEIN 7.1 g/dl (6.1-8.1)
[2016-11-07] MEDS ORDERED: SOD CHLORIDE 0.9% 100 ML ONE (17:33)
[2016-11-07] MEDS ORDERED: IODIXANOL LOCM 100 ML BTL ONE (17:33)
[2016-11-07] MEDS ORDERED: CARV12.579 PO ×2 (17:41→19:34)
[2016-11-07] MEDS ORDERED: NIFE30TA60 PO ×2 (17:41→19:34)
[2016-11-07] MEDS ORDERED: HYDR-3672 PO (17:42)
[2016-11-07] MEDS ORDERED: DIPH25CA42 PO (17:43)
[2016-11-07] MEDS ORDERED: CHOL100062 PO (17:43)
--- NOTE | 2016-11-07 18:28 | RADRPT ---
PROCEDURE: CT abdomen and pelvis with contrast. CLINICAL INDICATION: abdominal pain TECHNIQUE: CT scan of the abdomen and pelvis with contrast [facility] [place] [facility] The patient was scanned after administration of 80 cc of Visipaque 320 intravenous contrast. Sagittal and coronal reformatted images were obtained from the axial source images. One or more of the following dose reduction techniques were used: - Automated exposure control. - Adjustment of the mA and/or kV according to patient size. - Use of iterative reconstruction technique. DLP 352.8 mGycm. CTDIvol 7 mGy COMPARISON: 10/24/2016 FINDINGS: The lung bases are clear. There is normal density and enhancement of the liver with no focal lesion or biliary ductal dilatati on. The gallbladder is unremarkable without inflammation, and the portal vein is intact without thr ombus. The spleen is unremarkable without mass. The adrenal glands are within normal limits without mass. The kidneys enhance symmetrically bilaterally without hydronephrosis or perinephric stranding. Ther e is stable appearance of bilateral mild to moderate renal atrophy. The pancreas is unremarkable without focal lesion or surrounding inflammatory changes. There is no bowel obstruction or focal bowel inflammation. The appendix is unremarkable. There is a diffusely fecal filled colon.. There is trace diverticulosis without diverticulitis. There is no free air or free fluid. There are no enlarged lymph nodes. There is aortic atherosclerosis without aneurysmal dilatation. Degenerative changes are seen in t he lumbar spine with no acute osseous abnormality. The prostate is moderately enlarged mass effect upon the base the bladder which has a slightly eleva arleth trabecular appearance. IMPRESSION: No evidence of bowel obstruction or inflammation. There is a diffusely fecal filled colon suggestiv e for constipation. There is trace diverticulosis without diverticulitis. Atherosclerotic disease is present. Renal atrophy is again seen. Prostatic enlargement with findings suggestive of chronic bladder outlet obstruction. RPTAT: AA .Gabriela Liz MD, MD Date Time Electronically viewed and signed by .Gabriela Liz MD, MD on 11/07/2016 18:27 .Emelyn/
[2016-11-07] MEDS ORDERED: POLY17PO6 PO (19:01)
[2016-11-07] MEDS ORDERED: FLEETOIL PR (19:02)
--- NOTE | 2016-11-07 19:04 | ERD ---
ER Documentation Chief Complaint Date/Time DATE: 11/07/16 TIME: 19:02 Chief Complaint ABDOMINAL PAIN X 8 MONTHS HPI This is a 51-year-old male who is on dialysis complains of having some left lower quadrant pain off and on for the past 8 months. No nausea vomiting diarrhea we does have constipation. Says he complains of fullness in the left lower quadrant. No fever no blood in his stools no back pain no palpitations dizziness chest ROS All systems reviewed and are negative except as per history of present illness. Medications Home Meds Active Scripts Mineral Oil* (Fleet* Mineral Oil Enema) 133 Ml Oil, 133 ML NE NEEDED Y for cons, #1 ENEMA Prov:BOB CURRIE DO 11/07/16 Polyethylene Glycol* (Miralax*) 17 Gm Powd.pack, 17 GM PO DAILY, #7 Prov:BOB CURRIE DO 11/07/16 Losartan Potassium* (Losartan Potassium*) 50 Mg Tablet, 50 MG PO BID for 28 Days , TAB Prov:LUCAS WAHL MD 10/27/16 Pantoprazole* (Pantoprazole*) 40 Mg Tablet.dr, 40 MG PO DAILY@06 for 28 Days Prov:LUCAS WAHL MD 10/27/16 Docusate Sodium (Dok) 100 Mg Capsule, 100 MG PO Q12H Y for CONSTIPATION for 28 Days, CAP Prov:LUCAS WAHL MD 10/27/16 Multivit/Ca Carb/B Cmplx/Fa* (Luisa-Melissa*) 1 Tab Tab, 1 TAB PO DAILY for 28 Days , TAB Prov:LUCAS WAHL MD 09/26/16 Folic Acid* (Folic Acid*) 1 Mg Tablet, 1 MG PO DAILY for 28 Days, TAB Prov:LUCAS WAHL MD 09/26/16 Reported Medications Cholecalciferol* (Vitamin D3*) 1,000 Unit Tablet, 1000 UNIT PO DAILY, TAB 11/07/16 Diphenhydramine Hcl (Banophen) 25 Mg Capsule, 50 MG PO BID, CAP 11/07/16 Hydralazine Hcl* (Hydralazine Hcl*) 50 Mg Tab, 50 MG PO TID, #90 TAB TAKE WITH HYDRALAZINE 25MG 11/07/16 Carvedilol* (Carvedilol*) 12.5 Mg Tablet, 12.5 MG PO Q12H, #60 TAB 11/07/16 Nifedipine* (Nifedipine ER*) 30 Mg Tablet.sa, 30 MG PO DAILY, TAB.SA 11/07/16 Discontinued Reported Medications Iron Sucrose* (Venofer*) 100 Mg/5 Ml Vial, 100 MG IV, VIAL EVERY TRMT 10/24/16 Glycerin/Maltodextrin (Liquafiber Liquid) 488 Ml Liquid, 30 ML PO EVERY SCHED DIALYSIS TRMT 10/24/16 Discontinued Scripts Fluocinonide (Lidex Cream (30 g)) 1 Applic Cr, 1 APPLIC TOP BID for 28 Days Prov:LUCAS WAHL MD 10/27/16 Polyethylene Glycol* (Miralax*) 17 Gm Powd.pack, 17 GM PO DAILY for 28 Days Prov:LUCAS WAHL MD 10/27/16 Carvedilol* (Carvedilol*) 6.25 Mg Tablet, 6.25 MG PO BID for 30 Days, TAB Prov:LUCAS WAHL MD 10/27/16 Nifedipine* (Nifedipine ER*) 60 Mg Tablet.sa, 60 MG PO DAILY for 28 Days, TAB.SA Prov:LUCAS WAHL MD 10/27/16 Hydralazine Hcl* (Hydralazine Hcl*) 100 Mg Tablet, 100 MG PO Q8, #90 TAB Prov:LUCAS WAHL MD 10/27/16 Calcium Acetate* (Phoslo*) 667 Mg Tablet, 1334 MG PO WITH MEALS for 28 Days, TAB Prov:LUCAS WAHL MD 09/26/16 Clobetasol Propionate* (Temovate*) 0.05%-15gm Cream..g., 1 APPLIC TOP BID for 7 Days Prov:LUCAS WAHL MD 09/26/16 Aspirin (Aspirin Lite-Coat) 325 Mg Tablet, 325 MG PO DAILY for 28 Days, TAB Prov:LUCAS WAHL MD 09/26/16 Nitroglycerin* (Nitrostat*) 0.4 Mg Tab.subl, 1 TAB SL Q5M Y for ANGINA for 28 Days Prov:LUCAS WAHL MD 09/26/16 Allergies Allergies: Coded Allergies: No Known Allergy (Unverified , 11/07/16) PMhx/Soc History of Surgery: Yes (left thumb) Anesthesia Reaction: No Hx Neurological Disorder: No Hx Respiratory Disorders: No Hx Cardiac Disorders: Yes (HTN) Hx Psychiatric Problems: No Hx Miscellaneous Medical Probl: Yes (ESRD, DM) Hx Alcohol Use: No Hx Substance Use: No Hx Tobacco Use: No Smoking Status: Never smoker FmHx Family History: No coronary disease Physical Exam Vitals Vital Signs Date Time Temp Pulse Resp B/P Pulse Ox O2 Delivery O2 Flow Rate FiO2 11/07/16 18:49 85 16 193/97 100 Room Air 11/07/16 17:49 90 13 193/97 99 Room Air 11/07/16 16:24 102 14 193/96 98 Room Air 11/07/16 16:01 98.9 114 18 136/102 98 Physical Exam Const: Well-developed, well-nourished Head: Atraumatic, normocephalic Eyes: Normal Conjunctiva, PERRLA, EOMI, normal sclera, no nystagmus ENT: Normal External Ears, Nose and Mouth, moist mucus membranes. Neck: Full range of motion. No meningismus, no lymphadenopathy. Resp: Clear to auscultation bilaterally, no wheezing, rhonchi, rales Cardio: Regular rate and rhythm, no murmurs, S1 S2 present Abd: Soft, mild left lower quadrant tenderness, non distended. Normal bowel sounds, no guarding or rebound, no pulsitile abdominal masses or bruits Skin: No petechiae or rashes, no ecchymosis , no maculopapular rash Back: No midline or flank tenderness Ext: No cyanosis, or edema, FROM x 4, normal inspection, neurovascularly intact x 4 Neur: Awake and alert, STR 5/5 x 4, sensation intact x 4, no focal findings, cerebellum intact Psych: Normal Mood and Affect Result Diagram: 11/07/16 1650 11/07/16 1650 Results 24 hrs Laboratory Tests Test 11/07/16 16:50 White Blood Count 7.510^3/ul Red Blood Count 3.9610^6/ul Hemoglobin 11.9g/dl Hematocrit 36.6% Mean Corpuscular Volume 92.4fl Mean Corpuscular Hemoglobin 30.1pg Mean Corpuscular Hemoglobin Concent 32.5g/dl Red Cell Distribution Width 13.4% Platelet Count 91142^3/UL Mean Platelet Volume 10.0fl Neutrophils % 71.9% Lymphocytes % 16.8% Monocytes % 9.2% Eosinophils % 1.2% Basophils % 0.5% Nucleated Red Blood Cells % 0.0/100WBC Neutrophils # 5.410^3/ul Lymphocytes # 1.310^3/ul Monocytes # 0.710^3/ul Eosinophils # 0.110^3/ul Basophils # 0.010^3/ul Nucleated Red Blood Cells # 0.010^3/ul Sodium Level 135mmol/L Potassium Level 3.8mmol/L Chloride Level 94mmol/L Carbon Dioxide Level 26mmol/L Anion Gap 19 Blood Urea Nitrogen 37mg/dl Creatinine 8.21mg/dl Glucose Level 161mg/dl Calcium Level 9.0mg/dl Total Bilirubin 0.0mg/dl Direct Bilirubin 0.00mg/dl Indirect Bilirubin 0.0mg/dl Aspartate Amino Transf (AST/SGOT) 30IU/L Alanine Aminotransferase (ALT/SGPT) 26IU/L Alkaline Phosphatase 99IU/L Total Protein 7.1g/dl Albumin 3.7g/dl Globulin 3.40g/dl Albumin/Globulin Ratio 1.08 Lipase 145U/L Current Medications Medications (Trade) Dose Ordered Sig/Jessica Route PRN Reason Start Time Stop Time Status Last Admin Dose Admin Sodium Chloride (NS) 1,000 ml @ 1,000 mls/hr Q1H STAT IV 11/07/16 16:35 11/07/16 17:34 DC 11/07/16 17:02 Morphine Sulfate (morphine) 4 mg ONCE STAT IV 11/07/16 16:35 11/07/16 16:36 DC 11/07/16 17:02 Ondansetron HCl (Zofran Inj) 4 mg ONCE STAT IV 11/07/16 16:35 11/07/16 16:36 DC 11/07/16 17:02 IV Flush 10 ml 10 ml STK-MED ONCE .ROUTE 11/07/16 17:33 11/07/16 17:34 DC 11/07/16 18:06 Sodium Chloride (NS) 100 ml @ ud STK-MED ONCE .ROUTE 11/07/16 17:33 11/07/16 17:34 DC 11/07/16 18:07 Iodixanol (Visipaque Locm) 100 ml STK-MED ONCE .ROUTE 11/07/16 17:33 11/07/16 17:34 DC 11/07/16 18:07 Procedures/MDM PROCEDURE: CT abdomen and pelvis with contrast. CLINICAL INDICATION: abdominal pain TECHNIQUE: CT scan of the abdomen and pelvis with contrast was performed on a multi-slice CT scanner . The patient was scanned after administration of 80 cc of Visipaque 320 intravenous contrast. Sagittal and coronal reformatted images were obtained from the axial source images. One or more of the following dose reduction techniques were used: - Automated exposure control. - Adjustment of the mA and/or kV according to patient size. - Use of iterative reconstruction technique. DLP 352.8 mGycm. CTDIvol 7 mGy COMPARISON: 10/24/2016 FINDINGS: The lung bases are clear. There is normal density and enhancement of the liver with no focal lesion or biliary ductal dilatation. The gallbladder is unremarkable without inflammation , and the portal vein is intact without thrombus. The spleen is unremarkable without mass. The adrenal glands are within normal limits without mass. The kidneys enhance symmetrically bilaterally without hydronephrosis or perinephric stranding. There is stable appearance of bilateral mild to moderate renal atrophy. The pancreas is unremarkable without focal lesion or surrounding inflammatory changes. There is no bowel obstruction or focal bowel inflammation. The appendix is unremarkable. There is a diffusely fecal filled colon.. There is trace diverticulosis without diverticulitis. There is no free air or free fluid. There are no enlarged lymph nodes. There is aortic atherosclerosis without aneurysmal dilatation. Degenerative changes are seen in the lumbar spine with no acute osseous abnormality. The prostate is moderately enlarged mass effect upon the base the bladder which has a slightly elevated trabecular appearance. IMPRESSION: No evidence of bowel obstruction or inflammation. There is a diffusely fecal filled colon suggestive for constipation. There is trace diverticulosis without diverticulitis. Atherosclerotic disease is present. Renal atrophy is again seen. Prostatic enlargement with findings suggestive of chronic bladder outlet obstruction. RPTAT: AA .Gabriela Liz MD, MD Date Time Electronically viewed and signed by .Gabriela Liz MD, MD on 11/07/2016 18:27 .J/ CC: BOB CURRIE DO Patient has constipation labs are relatively unremarkable. Discharge home with enema and MiraLAX Departure Diagnosis: Primary Impression: Constipation Constipation type: unspecified constipation type Qualified Code: K59.00 - Constipation, unspecified constipation type Condition: Stable Patient Instructions: Constipation (Adult) BOB CURRIE DO November 07, 2016 19:04
[2016-11-07] MEDS ORDERED: NICARDipine HCL 30 MG CAPSULE PO ONE (19:30)
[2016-11-07] MEDS ORDERED: hydrALAzine 20 MG INJ IV ONE (19:30)
[2016-11-07] MEDS ORDERED: ZOLP5TAB7 PO (19:33)
[2016-11-07 20:32] VITALS: BP 151/82; PULSE 98; RESP 20
== END 2016-11-07 20:37 | disposition home or self-care (01) ==
LOC: E/R 15:59
DX: K59.00 Constipation, unspecified (principal); I12.0 Hypertensive chronic kidney disease with stage 5 chronic kidney disease or end stage renal disease; N18.6 End stage renal disease; E11.9 Type 2 diabetes mellitus without complications; Z79.82 Long term (current) use of aspirin; Z99.2 Dependence on renal dialysis
CPT/HCPCS: 74177; 80053; 83690; 85025; J0360; J2270; J2405; J7030; Q9967; Z7610; 36415; 96374; 96375

== ENCOUNTER 2017-03-24 11:08 | Day surgery (SDC) | payer OTHER ==
[~2017-03-24] VITALS: Ht 167.6 cm; Wt 63.5 kg
[~2017-03-24 11:08] MED LIST changes: -ASPI325T4 PO; -CALC667T2 PO; +CARV12.579 PO; -CARV6.2579 PO; +CHOL100062 PO; +DIPH25CA42 PO; -FLU0530 TOP; -GLYC488L PO; +HYDR-3672 PO; -HYDR100T7 PO; -IRON100V IV; +MINE133E23 PR; +NIFE30TA60 PO; -NIFE60TA7 PO; -NIT4 SL; -TEM15CR5 TOP; +ZOLP5TAB7 PO
[2017-03-24 12:46] VITALS: Ht 167.6 cm; Wt 63.5 kg
[2017-03-24 13:33] VITALS: BP 157/82; PULSE 105; RESP 27
--- NOTE | 2017-03-24 15:18 | OPPN ---
Date/Time of Note Date/Time of Note DATE: 03/24/17 TIME: 15:15 Proc Note GI Procedure Date 03/24/17 Pre-procedure Diagnosis * Dyspepsia/reflux symptoms Post-procedure Diagnosis Assessment: * Mild distal esophagitis * Moderate gastritis. Rule out H. pylori infection. Biopsies obtained * Otherwise normal EGD Plan: * PPI therapy * Review pathology * Follow-up as previously scheduled Procedure Performed: Endoscopy (With biopsies) Surgeon DAYRON SCHMIDT MD Nursery Attendant none Anesthesia Type: moderate sedation (Versed 5 mg fentanyl 100 mcg administer IV push) Tourniquet Time none EBL none Transfusion required none Biopsy 1: Gastric body and antrum Grafts/Implants none Tubes/Drains none Complication(s) none Pt Condition post procedure: stable Disposition: home Indications: other (Dyspepsia/reflux symptoms) Procedure Description After informed consent, with the patient/relatives understanding the procedure, its indications, potential risks and complications, including but not limited to : allergic reaction, bleeding, perforation or infection, and after all pertinent questions were answered to the patients satisfaction, the patient/ relatives signed witnessed informed consent. Following this, premedication was administered slowly IV push under careful cardiovascular and respiratory monitoring with pulse oximetry, automatic blood pressure, and cardiac monitor. Once the sedative effect was achieved the patient was place in the left lateral decubitus, the panendoscope was introduced and advanced under visual control. Careful examination of the upper gastrointestinal tract, both on insertion as well as withdrawal of the instrument disclosing the following findings: ESOPHAGUS: the mucosa of the entire esophagus was carefully examined and showed the following findings: There is mild erythema of the mucosa at the esophagogastric junction. Otherwise the mucosa appears within normal limits. There is no evidence of varices, neoplasm, or stricture. No Hiatal Hernia identified. STOMACH: Upon entrance to the stomach air was insufflated, the gastric vale distended normally. The mucosa of the fundus, body and antrum of the stomach was carefully examined both head-on and on retroflexion, and showed the following findings: There is moderate erythema and edema of the mucosa of the body and antrum of the stomach. Biopsies were obtained to rule out H. pylori infection. Otherwise the mucosa appears within normal limits with no abnormalities. There is no evidence of ulcers or neoplasm. PYLORUS: The pylorus was carefully examined and showed the following findings: the pylorus appears patent and within normal limits, with no evidence of gastric outlet obstruction. DUODENUM: The duodenal mucosa was carefully examined in the duodenal bulb as well as the second portion of the duodenum and showed the following findings: the mucosa appears unremarkable with no evidence of duodenitis, ulcer or neoplasm. Copies To: CC: DAYRON SCHMIDT MD, MORDO MD Mar 24, 2017 15:18
[2017-03-24] MEDS ORDERED: FENTAnyl 50 MCG/ML VIAL ONE (15:33)
[2017-03-24] MEDS ORDERED: MIDAZOLAM 1 MG/ML 2 ML INJ ONE ×3 (15:33→15:34)
[2017-03-24 15:45] VITALS: BP 124/84; PULSE 76; RESP 18
--- NOTE | 2017-03-24 17:57 | OPPN ---
Date/Time of Note Date/Time of Note DATE: 03/24/17 TIME: 17:54 Proc Note GI Procedure Date 03/24/17 Pre-procedure Diagnosis * Colorectal cancer screening Post-procedure Diagnosis Impression: * Suboptimal preparation precludes adequate examination * Moderate-sized internal hemorrhoids * Otherwise no gross lesions found Plan: * Outpatient follow-up * High-fiber diet * Annual Hemoccult stool testing * Repeat colonoscopy in 3-5 years due to poor preparation today . Surgeon DAYRON SCHMIDT MD Tunnel Man none Anesthesia Type: moderate sedation (Versed 6 mg fentanyl 100 mcg administer IV push) Tourniquet Time none EBL none Transfusion required none Grafts/Implants none Tubes/Drains none Complication(s) none Pt Condition post procedure: stable Disposition: home Indications: screening/surveillance Procedure Description Procedure Date: [] Preoperative Diagnosis: After informed consent, with the patient/relatives understanding the procedure, its indications and potential risks and complications, including but not limited to: Allergic reaction, bleeding, perforation, infection, and after all pertinent questions were answered to the patient's satisfaction, the patient/ relatives signed the witnessed informed consent. Following this, premedication was administered slowly IV push under careful cardiovascular and respiratory monitoring with pulse OXIMETRY, automatic blood pressure, and patient monitor. Once the sedative effect was achieved, the patient was placed in the left lateral decubitus position, digital rectal examination was performed. The colonoscope was then introduced and advanced under visual control throughout all segments of the colon including: the rectum, sigmoid, descending colon, splenic flexure, transverse colon, hepatic flexure, ascending colon and finally reaching the cecum which was clearly identified by transillumination, finger indentation and the ileocecal valve. Careful examination of the mucosa of the lower gastrointestinal tract both on insertion as well as withdrawal of the instrument disclosed the following findings: PREPARATION QUALITY: , [fair, procedure completed] RECTAL EXAM: The anorectal area was visualized examined and digital rectal examination performed with the following findings: No evidence of perirectal disease, no masses. COLONIC MUCOSA: The mucosa of all segments of the colon was carefully examined and showed the following findings: The preparation is suboptimal and the examination is therefore inadequate. No gross lesions are noted. Moderate-sized internal hemorrhoids are present. Otherwise the examined mucosa appears within normal limits. There is no evidence of inflammatory changes, diverticular formation, polyps or other neoplasms, vascular malformation, or any other abnormality. The instrument was then withdrawn, the patient tolerated the procedure well and was transferred out of the Endoscopy Suite awake and in good condition to continue recovery under observation. Copies To: CC: DAYRON SCHMIDT MD, MORDO MD Mar 24, 2017 17:57
== END 2017-03-24 15:54 | disposition home or self-care (01) ==
LOC: GIL 11:08
PROVIDERS: ATTEND Internal Medicine Gastroenterology
DX: Z12.11 Encounter for screening for malignant neoplasm of colon (principal); K29.50 Unspecified chronic gastritis without bleeding; K20.8 Other esophagitis; K64.8 Other hemorrhoids; I10 Essential (primary) hypertension; E78.5 Hyperlipidemia, unspecified; G20 Parkinson's disease
CPT/HCPCS: 43239; 45378; 88305; 88312; J2250; J3010; Z7610

== ENCOUNTER 2017-05-20 12:37 | Emergency (ER) | payer OTHER ==
[~2017-05-20] VITALS: Wt 72.7 kg
[~2017-05-20 12:37] MED LIST changes: -CHOL100062 PO; -DOCU-216 PO; -HYDR-3672 PO; -LOSA50TA6 PO; -MINE133E23 PR; -PANT40TA4 PO; -POLY17PO6 PO
--- NOTE | 2017-05-20 13:35 | ERD ---
ER Documentation Chief Complaint Chief Complaint rash HPI 51y/o male patient with history of end-stage renal disease on hemodialysis, presents to the emergency department c/o gradual onset of generalized, erythematous rash, that started 2 years ago but is getting worse. The symptoms are probably caused by stress and are associated with intense pruritus. Aggravating factors: Dry weather. Alleviating factors: Vaseline. Denies fever, chills, N/V/D. Treatment attempted: Vaseline. Previous evaluation: Skin biopsy positive for psoriasis. History was given by the patient. ROS SYSTEMIC symptoms: no fever, chills, no night sweats, no weight loss EYE symptoms: No blurred vision, no eye discharge OTOLARYNGEAL symptoms: No hearing loss. No ear pain, no sore throat CARDIOVASCULAR symptoms: No chest pain or discomfort, no palpitations. PULMONARY symptoms: No dyspnea, no cough, no wheezing. GASTROINTESTINAL symptoms: No abdominal pain, no nausea, no vomiting, no diarrhea MUSCULOSKELETAL symptoms: No arthralgias, no muscle aches. NEUROLOGY symptoms: No confusion, no syncope, no numbness or tingling. SKIN: Per HPI Medications Home Meds Active Scripts Ranitidine Hcl* (Ranitidine Hcl*) 150 Mg Tablet, 150 MG PO Q6, #120 TAB Prov:PAULA CURTIS MD 05/20/17 Clobetasol Propionate* (Clobetasol Propionate*) 60 Gm Cream.gm., 1 APPLIC TOP BID, #2 TUB 2 Refills Prov:PAULA CURTIS MD 05/20/17 Carvedilol* (Carvedilol*) 12.5 Mg Tablet, 12.5 MG PO BID, #60 TAB Prov:BOB CURRIE DO 11/07/16 Nifedipine* (Nifedipine ER*) 30 Mg Tablet.sa, 30 MG PO DAILY, #30 TAB.SA Prov:BOB CURREI DO 11/07/16 Multivit/Ca Carb/B Cmplx/Fa* (Luisa-Melissa*) 1 Tab Tab, 1 TAB PO DAILY for 28 Days , TAB Prov:LUCAS WAHL MD 09/26/16 Folic Acid* (Folic Acid*) 1 Mg Tablet, 1 MG PO DAILY for 28 Days, TAB Prov:LUCAS WAHL MD 09/26/16 Reported Medications Zolpidem Tartrate* (Zolpidem Tartrate*) 5 Mg Tablet, 5 MG PO QHS Y for INSOMNIA , #30 TAB 11/07/16 Diphenhydramine Hcl (Banophen) 25 Mg Capsule, 50 MG PO BID, CAP 11/07/16 Carvedilol* (Carvedilol*) 12.5 Mg Tablet, 12.5 MG PO Q12H, #60 TAB 11/07/16 Nifedipine* (Nifedipine ER*) 30 Mg Tablet.sa, 30 MG PO DAILY, TAB.SA 11/07/16 Allergies Allergies: Coded Allergies: No Known Allergy (Unverified , 11/07/16) PMhx/Soc History of Surgery: Yes (finger FINFER) Anesthesia Reaction: No Hx Neurological Disorder: No Hx Respiratory Disorders: No Hx Cardiac Disorders: Yes (HYPERLIPiDEMIA) Hx Psychiatric Problems: No Hx Miscellaneous Medical Probl: No Hx Alcohol Use: No Hx Substance Use: No Hx Tobacco Use: No Smoking Status: Never smoker Physical Exam Vitals Vital Signs Date Time Temp Pulse Resp B/P Pulse Ox O2 Delivery O2 Flow Rate FiO2 05/20/17 12:41 98.5 128 20 140/92 97 Physical Exam Patient is in no acute distress, vital signs stable. Alert and fully oriented. EYES: PERRLA, EOMI, Sclera and conjunctiva appear normal. EARS: Canals clear, tympanic membranes WNL THROAT: Normal oropharynx. NECK: Supple, No lymphadenopathy. Full ROM without pain or tenderness. HEART: RRR, no rubs, murmurs, clicks or gallops. LUNGS: Clear to auscultation. ABDOMEN: Soft, non-tender without masses or hepatosplenomegaly. EXTREMITIES: No edema bilaterally. BACK: Full ROM, no deformity, normal back exam NEURO: Cranial nerves grossly intact, no motor or sensory deficit Skin: Multiple plaques hyperkeratotic, erythematous, with scaly surface on abdomen and lower extremities Procedures/MDM 51y/o male patient on hemodialysis and history of psoriasis, presents to the ED c/o worsening of erythematous rash for by days. Vital signs stable, Physical exam unremarkable, except for hyperkeratotic, scaly plaques. Differential diagnosis include but not limited to: Calciphylaxis, rosacea, infection bacterial/viral/fungal. No suspicion for impetigo, cellulitis, abscess. Physical examination and clinical presentation consistent most likely with psoriasis. During the ED course the patient remained stable without new complaints. Results and clinical impression discussed with the patient who agrees with management. The patient is stable to be treated outpatient and will be discharged home with a Rx for clobetasol and ranitidine Side effects of prescribed medications (skin atrophy, rash, nausea, vomiting, diarrhea) were reviewed. The patient was instructed to follow up with the primary care provider in the next 48h. If symptoms persist, worsen or new symptoms develop, then patient should return to the ED immediately. Instructions explained and given to patient in Wolof with acknowledgment and demonstrated understanding. Disclaimer: Inadvertent spelling and grammatical errors are likely due to EHR/ dictation software use and do not reflect on the overall quality of patient care. Also, please note that the electronic time recorded on this note does not necessarily reflect the actual time of the patient encounter. Departure Diagnosis: Primary Impression: Psoriasis Additional Impression: Gastritis Condition: Stable Patient Instructions: Psoriasis Additional Instructions: Muchas nicolas por [facility] para hook servicio. Esperamos que en hook visita a la desiree de emergencia hook problema medico haya sido solucionado y que se sienta mucho mejor. Para estar seguros que hook mejoria sigue en proceso, le pedimos el favor de hacer nando ino de seguimiento medico con hook doctor primario en los proximos 2-4 garcia. Lleve con usted estos documentos y las medicinas recetadas. Si lópez sintomas empeoran y no puede grayson a hook doctor, por favor regrese a desiree de emergencia. En kvng que usted no tenga un mdico de atencin primaria: Llame al mdico o clnica comunitaria de referencia que aparece abajo jonathon las horas de consultorio para hacer nando ino para que le vean. CLINICAS: [facility] [phone] [id number] [facility] [place] 241 [phone] [id number] [facility] [phone] [facility] [phone] [id number] [facility] 478 [phone] [address] [facility]. [phone] MD May 20, 2017 13:35
[2017-05-20] MEDS ORDERED: CLOB60CR2 TOP (14:04)
[2017-05-20] MEDS ORDERED: RANI150T5 PO (14:04)
== END 2017-05-20 14:13 | disposition home or self-care (01) ==
LOC: FTE 12:37
DX: L40.9 Psoriasis, unspecified (principal); K29.70 Gastritis, unspecified, without bleeding; N18.6 End stage renal disease; Z99.2 Dependence on renal dialysis
CPT/HCPCS: 99283

== ENCOUNTER 2018-01-02 16:33 | Emergency (ER) | END 2018-01-02 19:50 | disposition home or self-care (01) ==